=== PATIENT | female | born 1975 | race Caucasian/White ===

== ENCOUNTER 2022-06-12 16:01 | Day surgery (SDC) | payer OTHER, SELFPAY ==
[2022-06-12] VITALS (13 sets, daily range): BP systolic 97–137; BP diastolic 66–83; PULSE 121–144; RESP 20; TEMP 37.2; O2SAT 95–100; BMI 35.4
--- NOTE | 2022-06-12 18:14 | ED.GENADULT ---
HPI - General Adult General Chief complaint: Dental/Oral/Mouth Injury/Pain Stated complaint: Abscess w/ severe throat swelling,Breathing probs Time Seen by Provider: 06/12/22 16:37 History of Present Illness HPI narrative: 46-year-old woman presenting with significant other to the emergency department with concern of increasing pain in her throat. Recently seen at the dentist and has had about a day's worth of amoxicillin for presumed infected tooth. The far posterior left molar. Has noted some swelling now over the last couple of days and feeling a very sharp pain deep in her throat. Definitely hurts to swallow. Hard to open her mouth. She worries that she might have trouble breathing. She recalls a history of similar sharp pain in her throat at times in the middle of the night where she will wake up feeling like she can not breathe and does not adjustment as she demonstrate the area of her cricoid cartilage will hear or feel a little pop and then feels better. No fever no drainage. Related Data Home Medications Medication Instructions Recorded Confirmed acetaminophen 300 mg-codeine 30 mg 1 tab PO Q8H 06/12/22 06/12/22 tablet amoxicillin 500 mg capsule 500 mg PO TID 06/12/22 06/12/22 Allergies Allergy/AdvReac Type Severity Reaction Status Date / Time No Known Drug Allergies Allergy Verified 06/12/22 16:17 Review of Systems Status of ROS: Reports: 6 or more systems reviewed and unremarkable except as noted in History and below [facility] Social History Smoking Status: Never smoker Second hand tobacco smoke exposure: Yes How often do you have a drink containing alcohol: monthly or less How many standard drinks containing alcohol do you have on a typical day: 1 or 2 How often do you have six or more drinks on one occasion: Never AUDIT-C Alcohol total score: 1 Non-prescribed substance use: denies use Exam Narrative: Exam Narrative: Pleasant. Clearly uncomfortable. Voice is laryngitic. Has pain with movement of her head/neck. I do not hear any stridor. Oropharynx demonstrates little trismus. I am able to visualize though the posterior most left molar number 17 or 18 which has a large central erosion. There are is heaped up gum tissue around it. No pointing. Not actually tender to palpation of the tooth itself or the nearby gums. More remarkable as the amount of swelling in the submental area extending past the angle of the jaw. Tense very tender in these areas. No fluctuance. Again no pointing. Lungs are clear pulse is tachycardic and in a regular rhythm. Cranial nerves 2-12 look to be intact. Wearing red-rimmed glasses. Const: Vital Signs, click to edit/add: Vital Signs - 24 hr 06/12/22 16:17 Temperature 98.9 F Pulse Rate [Pulse Oximeter] 140 H Respiratory Rate 20 Blood Pressure [Ri ght Upper Arm] 137/83 Pulse Oximetry 99 Oxygen Delivery Me thod Room Air Documenting provider has reviewed patient's vital signs: yes Course Vital Signs Vital signs: Initial Vital Signs Temperature 98.9 F 06/12/22 16:17 Temperature Source Temporal Artery Scan 06/12/22 16:17 Pulse Rate 140 H 06/12/22 16:17 Pulse Rhythm 06/12/22 16:17 Respiratory Rate 20 06/12/22 16:17 Blood Pressure 137/83 06/12/22 16:17 Blood Pressure Mean 101 06/12/22 16:17 Pulse Oximetry 99 06/12/22 16:17 Oxygen Delivery Method 06/12/22 16:17 Vital Signs Temperature 98.9 F 06/12/22 16:17 Pulse Rate 140 H 06/12/22 16:17 Respiratory Rate 20 06/12/22 16:17 Blood Pressure 137/83 06/12/22 16:17 Pulse Oximetry 99 06/12/22 16:17 Oxygen Delivery Method 06/12/22 16:17 Temperature 98.9 F 06/12/22 16:17 Pulse Rate 125 H 06/12/22 22:17 Respiratory Rate 20 06/12/22 16:17 Blood Pressure 125/66 06/12/22 22:17 Pulse Oximetry 97 06/12/22 22:17 Oxygen Delivery Method 06/12/22 20:24 Medical Decision Making MDM Narrative Medical decision making narrative: Certainly concern of an abscess here. Place IV and CT soft tissue neck. IV contrasted CT of soft tissue neck IMPRESSION: Left-sided plunging ranula, resulting from obstruction of the left sublingual duct, with fluid projecting inferiorly from a lobular collection the floor of the mouth into the medial left submandibular region. Mild submandibular and sublingual reactive lymphadenopathy. Narrowing of the left hypopharyngeal airway structures, with no sign of impending airway compromise. CBC and CRP are quite elevated. Initiated on IV fluids and antibiotics. Pain management with fentanyl Audra had begun to have feelings of further tightening of her throat. Spoke with our Ear Nose and Throat doctor who upon review of imaging is quite concerned about impending airway collapse. Arrived to do controlled intubation in OR and drainage of ranula. I [place] speak with [facility] [place]. Unfortunately not able to take this type of patient at this time given volumes and bed availability. Further inquiry then through [facility] where they were able to accept. Spoke with staff there for transfer of care. Per their concerns added vancomycin Lab Data Lab results reviewed: Yes I reviewed the patient's lab results Labs: Lab Results 06/12/22 06/12/22 06/12/22 Range/Units 18:51 18:51 20:18 WBC 26.28 H* (4.50-11.00) K/uL RBC 4.63 (4.00-5.20) m/uL Hgb 13.1 (12.0-16.0) gm/dL Hct 39.2 (33.0-51.0) % MCV 85 (80-100) fL MCH 28 (26-34) pg MCHC 33 (32-36) gm/dL RDW Coeff of Manohar 13.2 (11.5-15.5) % Plt Count 387 (140-440) K/uL Neut % (Auto) 89.4 H (42.0-72.0) % Lymph % (Auto) 3.2 L (20-44) % [place] % (Auto) 6.1 (0.0-11.0) % Eos % (Auto) 0.0 (0.0-7.0) % Baso % (Auto) 0.1 (0.0-3.0) % Neut # (Auto) 23.50 H (1.7-7.0) K/uL Lymph # (Auto) 0.80 L (0.90-2.90) K/uL [place] # (Auto) 1.60 H (0.00-0.90) K/UL Eos # (Auto) 0.00 (0.00-0.50) K/uL Baso # (Auto) 0.00 (0.00-0.30) K/uL Abs Immat Gran (auto) 0.30 (0.00-0.30) K/uL Imm/Tot Granulo (auto) 1.2 % Diff Slide Review Acceptable Review (Acceptable) Sodium 138 (135-149) mmol/L Potassium 3.4 L (3.6-5.1) mmol/L Chloride 102 (96-114) mmol/L Carbon Dioxide 25 (20-32) mmol/L BUN 12 (5-24) mg/dL Creatinine 0.7 (0.5-1.5) mg/dL Estimated Creat Clear 83.95 Estimated GFR 109 ml/min Glucose 121 H (60-115) mg/dL Calcium 9.1 (8.4-10.6) mg/dL C-Reactive Protein 22.6 H (0.5-1.0) mg/dL SARS-CoV-2 (PCR) Negative SARS-CoV-2 (Negative) Critical Care Time Critical Care Time Total Critical Care Time in Minutes: 70 Discharge Plan Discharge Clinical Impression: Airway compromise, Ranula of floor of mouth Patient Disposition: Xfer Other Discharge Location: [facility] Condition: Stable
--- NOTE | 2022-06-12 18:30 | CRLHL7_ITS ---
For Patients: As a result of the Century Cures Act, medical imaging exams and procedure reports are released immediately into your electronic medical record. You may view this report before your referring provider. If you have questions, please contact your health care provider. INDICATION: Submental throat swelling and pain. Known tooth infection and abscess on the left. Pain in the throat on the left. COMPARISON: None available. TECHNIQUE: CT examination of the neck is performed using spiral technique during the uneventful intravenous administration of 91 cc of Isovue 370. 3 mm thick axial sections were made along with coronal and sagittal sections. Please note that all CT scans at this facility use dose modulation, iterative reconstruction, and/or weight-based dosing when appropriate to reduce radiation dose to as low as reasonably achievable. FINDINGS: There is a multi lobulated, linear fluid collection located within the left floor of the mouth, interposed between the mylohyoid muscle laterally and the geniohyoid/genioglossus muscle complex medially. The fluid projects inferiorly into the left submandibular space, located medial to the moderately enlarged, inflamed left submandibular gland. The findings are that of a plunging ranula, resulting from obstruction of the left sublingual gland. There is mild submandibular and sublingual adenopathy on the left which is probably reactive lymphadenopathy. There is also mild prominence of left superior jugular chain lymph nodes, probably also reactive, without lymphadenopathy. The inflammation and fluid from the left sublingual space results in effacement of the left vallecula and piriform sinus. There is no sign of impending airway compromise. The rest of the airway structures are normal in appearance. There is no sign of cervical mass or adenopathy on today`s study. The right submandibular gland and the parotid glands are normal in appearance. There are periapical abscesses involving the roots of the left 2nd and 3rd mandibular molars, teeth 17 and 18, but these abscesses do not appear to connect to the fluid collection described above. No additional periapical abscesses are evident. There is absence of multiple teeth and destruction of multiple crowns of the teeth from dental carries. The visualized posterior fossa, mastoids, skull base, and orbits are normal in appearance. The paranasal sinuses are clear. The great vessels are unremarkable. There are several small hypodense regions in the upper pole of the right lobe of the thyroid. These could be cysts or nodules and can be followed up with ultrasound on a nonemergent basis. The left lobe of the thyroid is normal in appearance. The visualized upper chest is clear. The visualized upper mediastinum is normal in appearance. The osseous structures are unremarkable. IMPRESSION: Left-sided plunging ranula, resulting from obstruction of the left sublingual duct, with fluid projecting inferiorly from a lobular collection the floor of the mouth into the medial left submandibular region. Mild submandibular and sublingual reactive lymphadenopathy. Narrowing of the left hypopharyngeal airway structures, with no sign of impending airway compromise. Please note that all CT scans at this facility use dose modulation, iterative reconstruction, and/or weight-based dosing when appropriate to reduce radiation dose to as low as reasonably achievable. Dictated by César Wong MD @ 06/12/2022 8:19:41 PM (Electronically Signed)
[2022-06-12] MEDS: 0.9 % SODIUM CHLORIDE 1000 ml 1,000 ML IV (19:00)
[2022-06-12 19:02] LABS: Basophils Percent Auto 0.1 % (0.0-3.0); Hematocrit 39.2 % (33.0-51.0); Hemoglobin* 13.1 gm/dL (12.0-16.0); Immature Granulocytes Pct Auto 1.2 %; Lymphocytes Percent Auto 3.2 % (20-44); Mean Corpuscular HGB Conc 33 gm/dL (32-36); Mean Corpuscular Hemoglobin 28 pg (26-34); Mean Corpuscular Volume 85 fL (80-100); Monocytes Percent Auto 6.1 % (0.0-11.0); Neutrophils Percent Auto 89.4 % (42.0-72.0); Platelet Count* 387 K/uL (140-440); RDW Coefficient of Variation % 13.2 % (11.5-15.5); Red Blood Count 4.63 m/uL (4.00-5.20)
--- OUTSIDE RECORDS SUMMARY | 2022-06-12 19:10 | XMS_ITS | Clinical Summary ---
:1975 Author Organization [facility] Address [address] [place] [address] Care Team Providers Name Role Phone PatrickVicki ellis YUE FLIGHT COMMUNICATIONS OPERATOR Primary Care Provider [phone] Allergies Active Allergy Reactions Severity Noted Date Comments No Known Drug Allergies 10/18/2002 Medications Medication Sig Dispensed Refills Start Date End Date Status Naproxen Sodium 0 Acti ve (ALEVE PO) penicillin V Take 1 tablet (500 40 tablet 0 05/15/2017 Active potassium (VEETID) mg) by mouth 4 500 MG tablet times daily ibuprofen Take 1 tablet (600 30 tablet 0 05/15/2017 Active (ADVIL/MOTRIN) 600 MG mg) by mouth every tablet 8 hours as needed for moderate pain oxyCODONE IR Take 1 tablet (5 15 tablet 0 05/15/2017 Active (ROXICODONE) 5 MG mg) by mouth every tablet 6 hours as needed for moderate to severe pain naproxen (NAPROSYN) Take 1 tablet (500 20 tablet 0 05/24/2019 Active 500 MG tablet mg) by mouth 2 times daily as needed for moderate pain Active Problems Problem Noted Date CARDIOVASCULAR SCREENING; LDL GOAL LESS THAN 160 08/09 Headache 03/13/2005 Overview: Problem list name updated by automated p rocess. Provider to review Resolved Problems Problem Noted Date Resolved Date Encounter for supervision of other normal 03/11/20 06 09/07/2007 Overview: Diagnosis updated by automated process. Provider to review and confirm. Immunizations Name Administration Dates Next Due Influenza (IIV3) PF 04/21/2006 TD (ADULT, 7+) 11/01/2003 10/31/2013 Family History Medical History Relation Comments Heart Disease Father Heart murmur Cardiovascular Mother COPD Respiratory Mother Emphysema Mom adopte d not sure of FX HX Cardiovascular Paternal Grandfather AR at age in 40's Cancer Sister 3 Ovarian? Relation Status Comments Brother 1 Alive Brother 2 Alive Daughter Alive Mary Father Alive Maternal Grandfather Maternal Grandmother Mother Alive emphysema Paternal Grandfather Paternal Grandmother Alive Sister 1 Alive ovarian cancer Sister 2 Alive Sister 3 Social History Tobacco Use Types Packs/Day Years Used Date Smoking Tobacco: Never Alcohol Use Standard Drinks/Week Comments No 0 (1 standard drink = 0.6 oz pure alcoho l) Sex Assigned at Date Recorded Not on file Last Filed Vital Signs Vital Sign Reading Time Taken Comments Blood Pressure 115/70 05/24/2019 8:23 PM BUSINESS OBJECTS ANALYST Pulse 72 05/24/2019 8:23 PM BUSINESS OBJECTS ANALYST Temperature 36.9 ??C (98.4 ??F) 05/24/2019 6:36 PM BUSINESS OBJECTS ANALYST Respiratory Rate 16 05/24/2019 8:23 PM BUSINESS OBJECTS ANALYST Oxygen Saturation 98% 05/24/2019 8:23 PM BUSINESS OBJECTS ANALYST Inhaled Oxygen Concentration - - Weight 90.7 kg (200 lb) 05/24/2019 6:36 PM BUSINESS OBJECTS ANALYST Height 160 cm (5' 3) 09/07/2007 1:30 PM CDT Body Mass Index - - Plan of Treatment Health Maintenance Due Date Last Done Comments ADVANCE CARE PLANNING 1975 ANNUAL REVIEW OF HM ORDERS 1976 CT COLONOGRAPHY 1976 FIT-DNA (Cologuard) 1975 FIT 1975 FLEX SIG 1975 HEPATITIS B IMMUNIZATION (1 1975 of 3 - 3-dose series) MAMMO SCREENING 1975 COVID-19 Vaccine (#1) 03/28/1977 COLONOSCOPY 1986 COLORECTAL CANCER SCREENING 1986 HEPATITIS C SCREENING 1994 PAP 03/24/2007 03/24/2006, 03/13/2005, 11/01/2003, Additional history exists DTAP/TDAP/TD IMMUNIZATION 10/31/2013 11/01/2003, 11/01/2003 (2 - Td or Tdap) PHQ-2 (once per calendar 06/30/2021 year) LIPID 2021 INFLUENZA VACCINE (#1) 2022 04/21/2006 YEARLY PREVENTIVE VISIT 02/26/2023 02/26/2022, 09/11/2020, 12/18/2006, Additional history exists HIV SCREENING Completed 03/11/2006 IPV IMMUNIZATION Aged Out No longer eligi ble based on patient 's age to complete this topic MENINGITIS IMMUNIZATION Aged Out No longe r eligible based on patient 's age to complete this topic Pneumococcal Vaccine: Aged Out No longer eligible Pediatrics (0 to 5 Years) based on patient's age and At-Risk Patients (6 to to co mplete this topic 64 Years) Insurance Payer Benefit Plan / Subscriber ID Effective Phone Address T ype Group Dates [facility] [id number] 2018-Joana [phone] [address] [facility] [address] [place] [address] Care Teams Supervisor Forming And Tempering Relationship Specialty Start Date End Date Vicki Mcgregor APRN FLIGHT COMMUNICATIONS OPERATOR PCP - General 07/21/03 [id number] [place] [address]
--- OUTSIDE RECORDS SUMMARY | 2022-06-12 19:10 | XMS_ITS | Encounter Summary ---
:1975 Author Organization [facility] Address [address] [place] [address] Care Team Providers Name Role Phone Vicki Mcgregor APRN, CNP Primary Care Provider [phone] Encounter Details Date Type Department Care Team Description 05/24/2019 Travel Social History Tobacco Use Types Packs/Day Years Used Date Smoking Tobacco: Never Alcohol Use Standard Drinks/Week Comments No 0 (1 standard drink = 0.6 oz pure alcoho l) Sex Assigned at Date Recorded Not on file documented as of this encounter Plan of Treatment Not on filedocumented as of this encounter Visit Diagnoses Not on filedocumented in this encounter Care Teams Director Of Photography Relationship Specialty Start Date End Date Vicki Mcgregor APRN CNP PCP - General 07/21/03 [id number] [place] [address] documented as of this encounter
--- OUTSIDE RECORDS SUMMARY | 2022-06-12 19:10 | XMS_ITS | Encounter Summary ---
:1975 Author Organization [place] Address [address] [place] [address] Care Team Providers Name Role Phone Vicki Mcgregor YUE METAL CLEANER Primary Care Provider [phone] Reason for Visit Reason Comments Chest Pain Encounter Details Date Type Department Care Team Description 05/24/2019 Emergency [facility] Chandu Akers C hest pain, [facility] Emergency Dep t unspecified type [address] [facility] [id number] [facility] [phone] [place], [place] [address] (Wo rk) Social History Tobacco Use Types Packs/Day Years Used Date Smoking Tobacco: Never Alcohol Use Standard Drinks/Week Comments No 0 (1 standard drink = 0.6 oz pure alcoho l) Sex Assigned at Date Recorded Not on file documented as of this encounter Last Filed Vital Signs Vital Sign Reading Time Taken Comments Blood Pressure 115/70 05/24/2019 8:23 PM MACHINE SHOP APPRENTICE Pulse 72 05/24/2019 8:23 PM MACHINE SHOP APPRENTICE Temperature 36.9 ??C (98.4 ??F) 05/24/2019 6:36 PM MACHINE SHOP APPRENTICE Respiratory Rate 16 05/24/2019 8:23 PM MACHINE SHOP APPRENTICE Oxygen Saturation 98% 05/24/2019 8:23 PM MACHINE SHOP APPRENTICE Inhaled Oxygen Concentration - - Weight 90.7 kg (200 lb) 05/24/2019 6:36 PM MACHINE SHOP APPRENTICE Height - - Body Mass Index - - documented in this encounter Discharge Instructions Discharge InstructionsChandu Akers MD - 05/24/2019 8:06 PM MACHINE SHOP APPRENTICE Discharge Instructions Chest Pain You have been seen today for chest pain or discomfort. At this time, your provider has found no signs that your chest pain is due to a serious or life- threatening condition, (or you have declined more testing and/or admission to the hospital). However, sometimes there is a serious problem that does not show up right away. Your evaluation today may not be complete and you may need further testing and evaluation. Generally, every Emergency Department visit should have a follow-up clinic visit with either a primary or a specialty clinic/provider. Please follow-up as instructed by your emergency provider today. Return to the Emergency Department if: Your chest pain changes, gets worse, starts to happen more often, or comes with less activity. You are newly short of breath. You get very weak or tired. You pass out or faint. You have any new symptoms, like fever, cough, numb legs, or you cough up blood. You have anything else that worries you. Until you follow-up with your regular provider, please do the following: Take one aspirin daily unless you have an allergy or are told not to by your provider. If a stress test appointment has been made, go to the appointment. If you have questions, contact your regular provider. Follow-up with your regular provider/clinic as directed; this is very important. If you were given a prescription for medicine here today, be sure to read all of the information (including the package insert) that comes with your prescription. This will include important information about the medicine, its side effects, and any warnings that you need to know about. The pharmacist who fills the prescription can provide more information and answer questions you may have about the medicine. If you have questions or concerns that the pharmacist cannot address, please call or return to the Emergency Department. Remember that you can always come back to the Emergency Department if you are not able to see your regular provider in the amount of time listed above, if you get any new symptoms, or if there is anything that worries you. INE SHOP APPRENTICE AttachmentsThe following attachments cannot be sent through Care Everywhere. Costochondritis (Angolan)documented in this encounter Medications at Time of Discharge Medication Sig Dispensed Refills Start Date End Date ibuprofen (ADVIL/MOTRIN) Take 1 tablet (600 mg) 30 tablet 0 05/15/2017 600 MG tablet by mouth every 8 hours as needed for moderate pain naproxen (NAPROSYN) 500 Take 1 tablet (500 mg) 20 tablet 0 05/24/2019 MG tablet by mouth 2 times daily as needed for moderate pain Naproxen Sodium (ALEVE 0 PO) oxyCODONE IR (ROXICODONE) Take 1 tablet (5 mg) 15 tablet 0 05/15/2017 5 MG tablet by mouth every 6 hours as needed for moderate to severe pain penicillin V potassium Take 1 tablet (500 mg) 40 tablet 0 1 07/15/2016 (VEETID) 500 MG tablet by mouth 4 times daily documented as of this encounter ED Notes Corinna Allen - 05/24/2019 6:38 PM CST Patient presents with mid-sternal chest pain since 0815 this morning when she was driving into work.Patient states pain has been constant, hurts when she inhales. Patient states tender to the touch, no injury noted. ABCDs intact, alert and oriented x 4. INE SHOP APPRENTICE Chandu Akers MD - 05/24/2019 6:32 PM CST History Chief Complaint: Chest Pain HPI Audra Perez is a 43 year old female who presents to the emergency department today with chest pain. The patient reports sharp chest pain that started at 0815 this morning that came on suddenly andhas not resolved since. The patient states that the pain is in the center of her chest and radiates to the left side, with associated shortness of breath, pain with breathing/touch, and cough. She states her pain is tender to the touch and worse when she brings her arms together.The patient denies recent cough or cold symptoms before this. She denies coughing up blood. She denies injury or exertion recently. She was at work all day today and has not taken any medications. She also states last week she had pain with breathing and back pain. Cardiac/PE/DVT Risk Factors: History of hypertension - negative History of hyperlipidemia - negative History of diabetes - negative History of smoking - negative Personal history of PE/DVT - negative Family history of PE/DVT - negative Family history of heart complications - positive, father had heart attack in his 50's, grandpa had it in his 40's Recent travel - negative Recent surgery - negative Other immobilizations - negative Cancer - negative Estrogen - negative Allergies: No Known Drug Allergies Medications: Roxicodone Veetid Past Medical History: The patient denies any relevant past medical history. Past Surgical History: [place] teeth removal Mouth surgery Family History: Emphysema Cancer Myocardial infarction COPD Heart murmur Social History: The patient was accompanied to the ED by son. Smoking Status: Never Alcohol Use: No Marital Status: Single Review of Systems Respiratory: Positive for cough and shortness of breath. Cardiovascular: Positive for chest pain. Musculoskeletal: Positive for back pain. All other systems reviewed and are negative. Physical Exam Patient Vitals for the past 24 hrs: BP Temp Temp src Pulse Heart Rate Resp SpO2 Weight 05/24/192022 115/70 -- -- 72 72 16 98 % -- 05/24/191835 134/76 98.4 ??F (36.9 ??C) Oral -- 91 14 100 % 90.7 kg (200 lb) Physical Exam General: Pleasant, age appropriate. HEENT: Oropharynx is moist. Eyes: Conjunctiva normal Neck: Supple, no meningismus. CV: Regular rate and rhythm. No murmurs, rubs or gallops. No unilateral leg swelling. 2+ radial pulses bilateral. No lower extremity edema. PULM: Clear to auscultation bilateral. No respiratory distress. Good air exchange. No rales or wheezing. Chest wall is tender to touch. ABD: Soft, non-tender, non-distended. No pulsatile masses. No rebound, guarding or rigidity. MSK: No gross deformity to all four extremities. LYMPH: No cervical lymphadenopathy. NEURO: Alert. Good muscle tone, no atrophy. Skin: Warm, dry and intact. Psych: Mood is good and affect is appropriate. Emergency Department Course ECG: Indication: chest pain Completed at 1849. Read at 1910. Normal sinus rhythm Normal ECG Rate 81 bpm. ME interval 176. QRS duration 88. QT/QTc 384/446. P-R-T axes 47 -5 39. Imaging: Radiology findings were communicated with the patient who voiced understanding of the findings. Chest XR, PA & LAT Final Result IMPRESSION: There are no acute infiltrates. The cardiac silhouette is not enlarged. Pulmonary vasculature is unremarkable. MARTIN RASCON MD Report per radiology Laboratory: Laboratory findings were communicated with the patient who voiced understanding of the findings. Troponin (Collected 1928): <0.015 HCG Qualitative: negative CBC: AWNL (WBC 8.3, HGB 13.3, PLT 350) BMP: 3.3 K o/w WNL (Creatinine 0.77) Interventions: 193: Toradol 15 mg IV Emergency Department Course: Nursing notes and vitals reviewed. 1899: I performed an exam of the patient as documented above. IV was inserted and blood was drawn for laboratory testing, results above. The patient was sent for a Chest XR while in the emergency department, results above. 2004: Findings and plan explained to the Patient. Patient discharged home with instructions regarding supportive care, medications, and reasons to return. The importance of close follow-up was reviewed. The patient was prescribed Naprosyn. I personally reviewed the laboratory and imaging results with the Patient and answered all related questions prior to discharge. Impression & Plan Medical Decision Makin-year-old female presented to the ED with atypical chest pain. She was evaluated for ACS in which EKG reveals no ischemic changes. Troponin is within normal limits despite greater than 8 hours of constant pain thus ruling out UT. She has no features concerning for pulmonary embolus, aortic dissection or aortic aneurysm. She has reproducible tenderness on examination indicating likely costochondritis. Patient will be started on anti-inflammatories and will follow up with primary care physician to ensure improvement. Diagnosis: ICD-10-CM 1. Chest pain, unspecified type R07.9 Disposition: discharged to home Discharge Medications: Discharge Medication List as of 05/24/2019 8:16 PM START taking these medications Details naproxen (NAPROSYN) 500 MG tablet Take 1 tablet (500 mg) by mouth 2 times daily as needed for moderate pain, Disp-20 tablet, R-0, Local Print Scribe Disclosure: IMiesha MD, am serving as a scribe at 7:10 PM on 05/24/2019 to document services personally performed by Chandu Akers MD based on my observations and the provider's statements to me. 05/24/2019 [facility] EMERGENCY DEPARTMENT Chandu Akers MD 05/24/19 1993 INE SHOP APPRENTICE documented in this encounter Plan of Treatment Not on filedocumented as of this encounter Procedures Procedure Name Priority Date/Time Associated Comments Diagnosis XR CHEST 2 VIEWS STAT 05/24/2019 8:03 PM Resul ts for this MACHINE SHOP APPRENTICE procedure are i n the results section. TROPONIN I STAT 05/24/2019 7:29 PM Results f or this MACHINE SHOP APPRENTICE procedure are i n the results section. HCG QUALITATIVE STAT 05/24/2019 7:29 PM Result s for this MACHINE SHOP APPRENTICE procedure are i n the results section. BASIC METABOLIC PANEL STAT 05/24/2019 7:29 PM Results for this MACHINE SHOP APPRENTICE procedure are i n the results section. CBC WITH PLATELETS STAT 05/24/2019 7:29 PM Res ults for this MACHINE SHOP APPRENTICE procedure are i n the results section. EKG 12-LEAD, TRACING STAT 05/24/2019 6:49 PM R esults for this ONLY MACHINE SHOP APPRENTICE procedure are i n the results section. documented in this encounter Results Chest XR, PA & LAT (05/24/2019 8:03 PM MACHINE SHOP APPRENTICE) Anatomical Region Laterality Modality Chest Digital Radiography Specimen (Source) Anatomical Location Collection Method / Collectio n Time Received Time / Laterality Volume Impressions 05/24/2019 8:19 PM MACHINE SHOP APPRENTICE IMPRESSION: There are no acute infiltrates. The cardiac silhouette is not enlarged. Pulmonary vasculature is u nremarkable. MARTIN RASCON MD Narrative 05/24/2019 8:19 PM MACHINE SHOP APPRENTICE CHEST TWO VIEWS 05/24/2019 8:03 PM HISTORY: Chest pain. COMPARISON: None. Procedure Note Martin Rascon MD - 05/24/2019Fo rmatting of this note might be different from the original. CHEST TWO VIEWS 05/24/2019 8:03 PM HISTORY: Chest pain. COMPARISON: None. IMPRESSION: There are no acute infiltrat es. The cardiac silhouette is not enlarged. Pulmonary vasculature is u nremarkable. MARTIN RASCON MD Chandu Akers MD IMG DIAGNOSTIC IMAGING ORDER [place]ORA HCG qualitative (05/24/2019 7:29 PM MACHINE SHOP APPRENTICE) [facility] Method Time Signature HCG Qualitative Negative NEG^Negati 05/24/2019 [facility] Serum ve 7:57 PM [facility] Comment: This test is for screening purposes. ??R esults should be interpreted along with the clinical picture. ??Confirmation te sting is available if warranted by ordering [id number], HCG Quantitative Pregna ncy. Specimen Anatomical Collection Method Collection Time Receive d Time (Source) Location / / Volume Laterality Blood specimen 05/24/2019 7:29 PM 019 7:33 (specimen) MACHINE SHOP APPRENTICE PM MACHINE SHOP APPRENTICE Chandu Akers MD LAB - BLOOD ORDERABLES Performing Organization Address [facility]/ZIP [facility] e Number [facility] [address] [place], [place] [address] [facility] [address] [place], [place] [address], [facility] [phone] Troponin I (05/24/2019 7:29 PM MACHINE SHOP APPRENTICE) athologist Signature Troponin I ES <0.015 0.000 - 05/24/2019 [place] 0.045 ug/L 7:58 PM [facility] Comment: The 99th percentile for upper reference range is 0.045 ug/L. ??Troponin values in the range of 0.045 - 0.120 ug/L may b e associated with risks of adverse clinical events. Specimen Anatomical Collection Method Collection Time Receive d Time (Source) Location / / Volume Laterality Blood specimen 05/24/2019 7:29 PM 019 7:33 (specimen) MACHINE SHOP APPRENTICE PM MACHINE SHOP APPRENTICE Chandu Akers MD LAB - BLOOD ORDERABLES Performing Organization Address [facility] e [place] [facility] [address] [place], [place] [address] [facility] [address] [place] [address], [facility] [phone] (ABNORMAL) Basic metabolic panel (BMP) (05/24/2019 7:29 PM MACHINE SHOP APPRENTICE) athologist Signature Sodium 139 133 - 144 05/24/2019 [place] mmol/L 7:47 PM [facility] Potassium 3.3 (L) 3.4 - 5.3 05/24/2019 [place] mmol/L 7:47 PM [facility] Chloride 107 94 - 109 05/24/2019 [place] mmol/L 7:47 PM [facility] Carbon Dioxide 26 20 - 32 05/24/2019 [place] mmol/L 7:[address] [facility] Anion Gap 6 3 - 14 05/24/2019 [place] mmol/L 7:[address] [facility] Glucose 96 70 - 99 05/24/2019 [place] mg/dL 7:[address] [facility] Urea Nitrogen 11 7 - 30 05/24/2019 [place] mg/dL 7:[address] [facility] Creatinine 0.77 0.52 - 05/24/2019 [place] 1.04 mg/dL 7:[address] [facility] GFR Estimate >90 >60 05/24/2019 [place] mL/min/{1. 7:53 PM [facility] 73_m2} HOSPITAL Comment: Non GFR Calc Starting 06/16/2018, serum creatinine ba sed estimated GFR (eGFR) will be calculated using the Chronic Kidney Dise [facility] Epidemiology Collaboration (CKD-EPI) equation. GFR Estimate If >90 >60 mL/min/{1.73_m2} 05/24/2019 7: 53 PM [facility] Comment: GFR Calc Starting 06/16/2018, serum creatinine ba sed estimated GFR (eGFR) will be calculated using the Chronic Kidney Dise [facility] Epidemiology Collaboration (CKD-EPI) equation. Calcium 8.7 8.5 - 10.1 mg/dL 05/24/2019 7:53 PM [facility] Specimen Anatomical Collection Method Collection Time Receive d Time (Source) Location / / Volume Laterality Blood specimen 05/24/2019 7:29 PM 019 7:33 (specimen) MACHINE SHOP APPRENTICE PM MACHINE SHOP APPRENTICE Chandu Akers MD LAB - BLOOD ORDERABLES Performing Organization Address City/State/ZIP Code Phon e Number [place] [address] [address] [facility] [address] [place], [place] [address], [facility] [phone] [place] [address] [address] [address], [facility] CBC (platelets, no diff) (05/24/2019 7:29 PM MACHINE SHOP APPRENTICE) athologist Signature WBC 8.3 4.0 - 11.0 05/24/2019 [facility] 10e9/L 7:36 PM [facility] RBC Count 4.60 3.8 - 5.2 05/24/2019 [facility] 10e12/L 7:36 PM [facility] Hemoglobin 13.3 11.7 - 05/24/2019 [facility] 15.7 g/dL 7:36 PM [facility] Hematocrit 39.3 35.0 - 05/24/2019 [facility] 47.0 % 7:36 PM [facility] MCV 85 78 - 100 05/24/2019 [facility] fl 7:36 PM [facility] MCH 28.9 26.5 - 05/24/2019 [facility] 33.0 pg 7:36 PM [facility] MCHC 33.8 31.5 - 05/24/2019 [facility] 36.5 g/dL 7:36 PM [facility] RDW 13.5 10.0 - 05/24/2019 [facility] 15.0 % 7:36 PM [facility] Platelet Count 350 150 - 450 05/24/2019 [facility] 10e9/L 7:36 PM [facility] Specimen Anatomical Collection Method Collection Time Receive d Time (Source) Location / / Volume Laterality Blood specimen 05/24/2019 7:29 PM 019 7:33 (specimen) MACHINE SHOP APPRENTICE PM MACHINE SHOP APPRENTICE Chandu Akers MD LAB - BLOOD ORDERABLES Performing Organization Address City/State/ZIP Code Phon e Number [place] [address] [phone] EKG 12 lead (05/24/2019 6:49 PM MACHINE SHOP APPRENTICE) [facility] gist Method Time Signature Interpretation ECG Click View RADIOLOGY Image link RESULTS to view waveform and result Specimen (Source) Anatomical Collection Method Collection Time Re ceived Time Location / / Volume Laterality 05/24/2019 6:49 PM MACHINE SHOP APPRENTICE Chandu Akers MD ECG ORDERABLES Performing Organization Address City/[facility]/ZIP [facility] [place] [place] Phon e Number RADIOLOGY RESULTS documented in this encounter Visit Diagnoses Diagnosis Chest pain, unspecified type documented in this encounter Administered Medications Inactive Administered Medications - up to 3 most recent administrations Medication Order MAR Action Action Date Dose Rate Site ketorolac (TORADOL) injection 15 mg Given 05/24/2019 7:34 PM MACHINE SHOP APPRENTICE 15 mg 15 mg, Intravenous, ONCE, On Fri05/24/19 at 1912, For 1 dose, Can cause pain on injection. If ordered intravenously (IV) : administer through a running maintenance fluid over 1 minute followed by a flush. If patient complains of pain on injection, may dilute 15-30 mg in 5 mL and push over 1 to 2 minutes. documented in this encounter Active and Recently Administered Medications Times are shown in MACHINE SHOP APPRENTICE. Scheduled Medication Order 05/22/2019 05/23/2019 05/24/2019 ketorolac (TORADOL) injection 15 mg (COMPLETED) 193 (Given - Provider: Jyothi Arzate RN) 15 mg, Intravenous, ONCE, Fri05/24/19 a t 1912, For 1 dose, Can cause pain on injection. If ordered intravenously (IV) : administer through a running maintenance fluid over 1 minute followed by a flush. If patient complains of pain on injecti on, may dilute 15-30 mg in 5 mL and push over 1 to 2 minutes. documented in this encounter Care Teams Quotation Clerk Relationship Specialty Start Date End Date Vicki Mcgregor APRN METAL CLEANER PCP - General 07/21/03 [address] [place] [address] documented as of this encounter
--- OUTSIDE RECORDS SUMMARY | 2022-06-12 19:11 | XMS_ITS | Encounter Summary ---
:1975 Author Organization [place] Address [address] [place] [address] Care Team Providers Name Role Phone Vicki Mcgregor YUE HISTOLOGICAL ILLUSTRATOR Primary Care Provider [phone] Reason for Visit Reason Comments Care Mother states baby is active . She is having contractions without regularity. Encounter Details Date Type Department Care Team Description 10/16/2006 Office [facility] Romi Abreu OTHER Visit Paco Mohamud MD NORMAL PREG [address] [facility] NI (Primary Dx) [address] [place] [address] [facility] [address] [id number] (Wo rk) Social History Tobacco Use Types Packs/Day Years Used Date Smoking Tobacco: Never Alcohol Use Standard Drinks/Week Comments No 0 (1 standard drink = 0.6 oz pure alcoho l) Sex Assigned at Date Recorded Not on file documented as of this encounter Last Filed Vital Signs Vital Sign Reading Time Taken Comments Blood Pressure 128/86 10/16/2006 11:15 AM CDT Pulse 98 10/16/2006 11:15 AM CDT Temperature - - Respiratory Rate - - Oxygen Saturation - - Inhaled Oxygen Concentration - - Weight 93.9 kg (207 lb) 10/16/2006 11:15 AM CDT Height - - Body Mass Index 36.09 09/15/2006 4:00 PM CDT documented in this encounter Patient Instructions Patient InstructionsRomi Abreu MD - 10/16/2006 3:26 PM CDT Precautions for signs of labor, rupture of membranes, vaginal bleeding discussed, kick counts reviewed. documented in this encounter Progress Notes Romi Abreu MD - 03/08/2010 4:45 PM CDT denies vaginal bleeding, regular contractions, loss of fluid; + movement reported. Will schedule induction for 41 wks if no spontaneous labor prior. Olive Andres - 10/16/2006 11:18 AM CDT Gestational Age: 40w 2d Audra Perez presents for Chief Complaint Patient presents with ??? Care Mother states baby is active. She is having contractions without regularity. Initial BP 128/86 Pulse 98 Wt 207 lbs (93.9kg) LMP OB (10/14/06) BP completed using cuff size: large nurse assisted visit. Olive Andres [facility] documented in this encounter Nursing Notes 10/16/2006 11:15 AM CDT >> JUVENTINO BELTRAN 10/16/2006 1:20 pm Induction scheduled. See telephone encounter of 10/16/06. Amara Beltran RN documented in this encounter Plan of Treatment Not on filedocumented as of this encounter Procedures Procedure Name Priority Date/Time Associated Diagnosis Comme nts HCL OB SUGAR & Routine 10/16/2006 11:21 AM Supervis Other Resu lts for this ALBUMIN CDT Normal Preg procedure are i n the results section. documented in this encounter Results OB SUGAR & ALBUMIN (10/16/2006 11:21 AM CDT) P athologist Signature Protein Negative mg/dL [facility] Albumin Urine [facility] Glucose Urine Negative mg/dL [facility] Specimen Anatomical Collection Method Collection Time Receive d Time (Source) Location / / Volume Laterality 10/16/2006 11:21 10/16/2006 AM CDT 11:24 AM CDT Romi Abreu MD LABORATORY Performing Organization Address City/State/ZIP Code Phon e Number [facility] [address] [address] [facility] documented in this encounter Visit Diagnoses Diagnosis Supervision of other normal - Primary documented in this encounter Care Teams Customer Service Operator Relationship Specialty Start Date End Date Vicki Mcgregor APRN HISTOLOGICAL ILLUSTRATOR PCP - General 07/21/03 [address] [place] [address] documented as of this encounter
--- OUTSIDE RECORDS SUMMARY | 2022-06-12 19:11 | XMS_ITS | Encounter Summary ---
:1975 Author Organization [place] Address [address] [place] [address] Care Team Providers Name Role Phone Meche Vicki IN HOME SALES REPRESENTATIVE SONG PLUGGER Primary Care Provider [phone] Reason for Visit Reason Comments Edema Encounter Details Date Type Department Care Team Description 09/07/2007 Office Visit [facility] Vicki Mcgregor ENLARG EMENT LYMPH [place] IN HOME SALES REPRESENTATIVE SONG PLUGGER NODES (Primary Dx) [address] [facility] [address] [address] [address] [address] [phone] [place] [phone] (Wo rk) Social History Tobacco Use Types Packs/Day Years Used Date Smoking Tobacco: Never Alcohol Use Standard Drinks/Week Comments No 0 (1 standard drink = 0.6 oz pure alcoho l) Sex Assigned at Date Recorded Not on file documented as of this encounter Last Filed Vital Signs Vital Sign Reading Time Taken Comments Blood Pressure 120/80 09/07/2007 1:30 PM CDT Pulse 84 09/07/2007 1:30 PM CDT Temperature 36.2 ??C (97.1 ??F) 09/07/2007 1:30 PM CDT Respiratory Rate - - Oxygen Saturation - - Inhaled Oxygen Concentration - - Weight 90.7 kg (200 lb) 09/07/2007 1:30 PM CDT Height 160 cm (5' 3) 09/07/2007 1:30 PM CDT Body Mass Index 35.43 09/07/2007 1:30 PM CDT documented in this encounter Patient Instructions Patient InstructionsVicki Mcgregor - 09/07/2007 2:38 PM CDT Use 4 tabs-- three time per day. over the counter ibuprofen (advil or motrin--same thing) Please take with food. documented in this encounter Progress Notes Vicki Mcgregor - 09/07/2007 1:37 PM CDT S: Audra Perez is here for a New Issue: Swollen area laft side, upper neck/left side of head Has been going on for 4 days. Has had mild URI symptoms and then had onset of left posterior neck pain and swelling --thinks it is a swollen lymph node. Is very fatigued and sleeping a lot. Worse in the morning. No associated significant sore throat or cough. No significant nasal congestion. No overt fever. Any medications tried? Tylenol-has not helped Is overall unchanged. No known exposure to illness. Patient Active Problem List Diagnoses Code ??? HEADACHE 784.0 Past Surgical History Procedure Date ??? Surgical history of - wisdom teeth removal Allergies Allergen Reactions ??? No Known Drug Allergies History Substance Use Topics ??? Tobacco Use: Never ??? Alcohol Use: No Current outpatient prescriptions Medication Sig ??? TYLENOL 325 MG OR TABS ONE TO TWO TABLETS EVERY 4 TO 6 HOURS NEEDED FOR PAIN O: BP 120/80 Pulse 84 Temp (Src) 97.1 (Oral) Ht 5' 3 (1.60m) Wt 200 lbs (90.7kg) LMP 08/31/2007 Appears mildly fatigued but in no apparent distress TM-- no acute infection or effusion OP: without significant erythema or exudates. Neck: supple shotty anterior adenopathy. Left posterior tender node noted without surface changes. Is about 1.5 cm in diameter Lungs: Clear Cardiac. Regular. No murmur. The abdomen is soft without tenderness, guarding, mass, rebound or organomegaly. Bowel sounds are normal. [place] heterophile negative CBC within normal limits. A/P: Encounter Diagnoses Code Name Primary? Qualifier ??? 785.6 ENLARGEMENT LYMPH NODES Yes Plan: MONO HETEROPHILE, CBC WITH PLATELETS, DIFF Likely viral and will resolve. Pt is already about 50 percent better today. If worsening or failing to improve follow up in clinic. documented in this encounter Nursing Notes 09/07/2007 1:30 PM CDT >> CARMELLA WRIGHT 09/07/2007 1:40 pm Patient presents with: Edema Initial BP 120/80 Pulse 84 Temp (Src) 97.1 (Oral) Ht 5' 3 (1.60m) Wt 200 lbs (90.7kg) LMP08/31/2007 Body mass index is 35.44 kg/(m^2). BP Completed using cuff size: large-right Carmella Valladares LOAN INTERVIEWER documented in this encounter Plan of Treatment Not on filedocumented as of this encounter Procedures Procedure Name Priority Date/Time Associated Diagnosis Comme nts CL AFF CBC WITH Routine 09/07/2007 1:57 PM Enlargement Lymph R esults for this PLATELETS, DIFF CDT Nodes procedure ar e in the results section. HCL MONO TEST Routine 09/07/2007 1:57 PM Enlargement Lymph Res ults for this CDT Nodes procedure are i n the results section. documented in this encounter Results CBC WITH PLATELETS, DIFF (09/07/2007 1:57 PM CDT) [facility] gist Method Time Signature WBC 8.7 4.0 - [facility] 11.0 [facility] 10e9/L LAB RBC Count 4.50 3.8 - 5.2 [facility] 10[facility] Hemoglobin 12.2 11.7 - [facility] 15.7 g/dL [facility] Hematocrit 37.4 35.0 - [facility] 47.0 % [facility] MCV 83 78 - 100 [place] [address] [facility] MCH 27.1 26.5 - [facility] 33.0 pg [facility] MCHC 32.6 31.5 - [facility] 36.5 g/dL [facility] RDW 14.4 10.0 - [facility] 15.0 % [facility] Platelet Count 408 150 - 450 [place] 10e9/L [facility] Diff Method Automated [facility] Method [facility] % Lymphocytes 35 20 - 48 % [place] [facility] % Monocytes 5 0 - 12 % [place] [facility] % Granulocytes 60 40 - 75 % [place] [facility] Absolute 3.1 0.8 - 5.3 [place] Lymphocytes 10e9/L [facility] Absolute 0.4 0.0 - 1.3 [place] Monocytes 10e9/L [facility] Absolute 5.2 1.6 - 8.3 [place] Granulocytes 10e9/L [facility] Specimen Anatomical Collection Method Collection Time Receive d Time (Source) Location / / Volume Laterality 09/07/2007 1:57 PM 8 2:02 CDT PM CDT Vicki Mcgregor APRN, CNP LABORATORY Performing Organization Address City/[facility]/ZIP Code Phon e Number [facility] [address] [place] [phone] [facility] MONO HETEROPHILE (09/07/2007 1:57 PM CDT) [facility] gist Method Time Signature Mononucleosis Negative NEG [place] Screen [facility] Specimen Anatomical Collection Method Collection Time Receive d Time (Source) Location / / Volume Laterality 09/07/2007 1:57 PM 8 2:02 CDT PM CDT Vicki Mcgregor APRN, CNP LABORATORY Performing Organization Address City/[facility]/ZIP Code Phon e Number [address] [phone] [facility] documented in this encounter Visit Diagnoses Diagnosis Enlargement of lymph nodes - Primary documented in this encounter Care Teams Pulp Cooker Relationship Specialty Start Date End Date Vicki Mcgregor APRN CNP PCP - General 07/21/03 [address] [place] [address] documented as of this encounter
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
--- OUTSIDE RECORDS SUMMARY | 2022-06-12 19:11 | XMS_ITS | Encounter Summary ---
:1975 Author Organization [place] Address [address] [place] [address] Care Team Providers Name Role Phone Vicki Mcgregor YUE MANAGER BILINGUAL Primary Care Provider [phone] Reason for Visit Reason Onset Date Comments Other 10/06/2006 Fluid leaking Encounter Details Date Type Department Care Team Description 10/06/2006 Telephone [facility] Romi Abreu (Fluid leaking) Paco Mohamud MD [address] [facility] [employer] [facility] [place] [address] [facility]8 [place] [phone] [address] (Wo rk) Social History Tobacco Use Types Packs/Day Years Used Date Smoking Tobacco: Never Alcohol Use Standard Drinks/Week Comments No 0 (1 standard drink = 0.6 oz pure alcoho l) Sex Assigned at Date Recorded Not on file documented as of this encounter Miscellaneous Notes Telephone Encounter - Linda Bradley - 10/06/2006 12:17 PM CDT Pt calling back to report that she is leaking clear fluid now. Advised pt to go to [facility] L&D. Dr. Abreu informed and [facility] called. Judson Bradley RN Telephone Encounter - Brynn Siegel - 10/06/2006 8:58 AM CDT Pt calling to report she has been having a thick yellowish White discharge form 3 days now. Not pinktinged and does not have any contractions yet.Denies vaginal itching. She called and talked to the on-call OB on Friday and he thought it might be her plug. Her next appt is on . She wants toknow if this is normal.Brynn Siegel RN documented in this encounter Plan of Treatment Not on filedocumented as of this encounter Visit Diagnoses Not on filedocumented in this encounter Care Teams Dubbing Machine Operator Relationship Specialty Start Date End Date Vicki Mcgregor APRN MANAGER BILINGUAL PCP - General 07/21/03 [address] [place] [address] documented as of this encounter
--- OUTSIDE RECORDS SUMMARY | 2022-06-12 19:11 | XMS_ITS | Encounter Summary ---
:1975 Author Organization [facility] Address [address] [place] [address] Care Team Providers Name Role Phone Vicki Mcgregor YUE SERVICE CENTER SPECIALIST Primary Care Provider Reason for Visit Reason Comments Care Mother states baby is active . Encounter Details Date Type Department Care Team Description 07/10/2006 Office [facility] Romi Abreu OTHER Visit Paco Mohamud MD NORMAL PREG 1440 [facility] [place] (Primary Dx) KENDY Antonio [address] [place] [address] [facility] 212 KEND[place]TONIO [id number] (Wo rk) Social History Tobacco Use Types Packs/Day Years Used Date Smoking Tobacco: Never Alcohol Use Standard Drinks/Week Comments No 0 (1 standard drink = 0.6 oz pure alcoho l) Sex Assigned at Date Recorded Not on file documented as of this encounter Last Filed Vital Signs Vital Sign Reading Time Taken Comments Blood Pressure 102/64 07/10/2006 4:00 PM DIRECT SERVICE PROVIDER Pulse 86 07/10/2006 4:00 PM DIRECT SERVICE PROVIDER Temperature - - Respiratory Rate - - Oxygen Saturation - - Inhaled Oxygen Concentration - - Weight 87.5 kg (193 lb) 07/10/2006 4:00 PM DIRECT SERVICE PROVIDER Height - - Body Mass Index 33.65 03/11/2006 10:30 AM CDT documented in this encounter Patient Instructions Patient InstructionsRomi Abreu MD - 07/10/2006 5:26 PM CST Precautions for signs of labor, rupture of membranes, vaginal bleeding discussed. CT SERVICE PROVIDER documented in this encounter Progress Notes Romi Abreu MD - 03/08/2010 4:45 PM CDT Doing well;denies vaginal bleeding, contractions, loss of fluid; + movement reported. Plan [address] SERVICE PROVIDER documented in this encounter Nursing Notes 07/10/2006 4:00 PM CST >> MARYAM ANDRES 07/10/2006 4:09 pm Gestational Age: 26w 2d Crystal Birdie Perez presents for Patient presents with: Care - Mother states baby is active. Initial BP 102/64 Pulse 86 Wt 193 lbs (87.5kg) LMP OB (10/14/06) BP completed using cuff size: regular nurse assisted visit. Maryam Andres BOX COVERING MACHINE OPERATOR documented in this encounter Plan of Treatment Not on filedocumented as of this encounter Procedures Procedure Name Priority Date/Time Associated Diagnosis Comme nts HCL OB SUGAR & Routine 07/10/2006 4:52 PM Supervis Other Resul ts for this ALBUMIN DIRECT SERVICE PROVIDER Normal Preg procedure are i n the results section. documented in this encounter Results OB SUGAR & ALBUMIN (07/10/2006 4:52 PM DIRECT SERVICE PROVIDER) P athologist Signature Protein Negative mg/dL [place] Albumin Urine [facility] Glucose Urine Negative mg/dL [facility] Specimen Anatomical Collection Method Collection Time Receive d Time (Source) Location / / Volume Laterality 07/10/2006 4:52 PM 7 4:55 DIRECT SERVICE PROVIDER PM DIRECT SERVICE PROVIDER Romi Abreu MD LABORATORY Performing Organization Address City/State/ZIP Code Phon e Number [facility] [address] [place] [address] [facility] documented in this encounter Visit Diagnoses Diagnosis Supervision of other normal - Primary documented in this encounter Care Teams Soda Clerk Relationship Specialty Start Date End Date Vicki Mcgregor APRN SERVICE CENTER SPECIALIST PCP - General 07/21/03 [address] [place] [address] documented as of this encounter
--- OUTSIDE RECORDS SUMMARY | 2022-06-12 19:11 | XMS_ITS | Encounter Summary ---
:1975 Author Organization [facility] Address [address] [place] [address] Care Team Providers Name Role Phone Vicki Mcgregor YUE PIGMENT PUMPER Primary Care Provider [phone] Reason for Visit Reason Comments Care Mother states baby is active . Encounter Details Date Type Department Care Team Description 10/09/2006 Office [facility] Romi Abreu OTHER Visit Paco Mohamud MD NORMAL PREG 1440 [facility] [employer] (Primary Dx) KENDY Antonio [address] [place] [address] [facility] 212 KENDY ANTONIO [phone] (Wo rk) Social History Tobacco Use Types Packs/Day Years Used Date Smoking Tobacco: Never Alcohol Use Standard Drinks/Week Comments No 0 (1 standard drink = 0.6 oz pure alcoho l) Sex Assigned at Date Recorded Not on file documented as of this encounter Last Filed Vital Signs Vital Sign Reading Time Taken Comments Blood Pressure 120/78 10/09/2006 4:00 PM CDT Pulse 88 10/09/2006 4:00 PM CDT Temperature - - Respiratory Rate - - Oxygen Saturation - - Inhaled Oxygen Concentration - - Weight 93.9 kg (207 lb) 10/09/2006 4:00 PM CDT Height - - Body Mass Index 36.09 09/15/2006 4:00 PM CDT documented in this encounter Patient Instructions Patient InstructionsRomi Abreu MD - 10/09/2006 4:28 PM CDT Precautions for signs of labor, rupture of membranes, vaginal bleeding discussed, kick counts reviewed. documented in this encounter Progress Notes Romi Abreu MD - 03/08/2010 4:45 PM CDT denies vaginal bleeding, contractions, loss of fluid; + movement reported. Olive Andres - 10/09/2006 4:05 PM CDT Gestational Age: 39w 2d Crystal Birdie Perez presents for Chief Complaint Patient presents with ??? Care Mother states baby is active. Initial BP 120/78 Pulse 88 Wt 207 lbs (93.9kg) LMP OB (10/14/06) BP completed using cuff size: regular nurse assisted visit. Olive Andres PRESSER AND SHAPER KNITTED GOODS documented in this encounter Plan of Treatment Not on filedocumented as of this encounter Procedures Procedure Name Priority Date/Time Associated Diagnosis Comme nts HCL OB SUGAR & Routine 10/09/2006 4:01 PM Supervis Other Resul ts for this ALBUMIN CDT Normal Preg procedure are i n the results section. documented in this encounter Results OB SUGAR & ALBUMIN (10/09/2006 4:01 PM CDT) P athologist Signature Protein Trace mg/dL [place] Albumin Urine [facility] Glucose Urine Negative mg/dL [facility] Specimen Anatomical Collection Method Collection Time Receive d Time (Source) Location / / Volume Laterality 10/09/2006 4:01 PM 7 4:04 CDT PM CDT Romi Abreu MD LABORATORY Performing Organization Address City/State/ZIP Code Phon e Number [facility] [address] [place] [address] [facility] documented in this encounter Visit Diagnoses Diagnosis Supervision of other normal - Primary documented in this encounter Care Teams Batch Unloader Relationship Specialty Start Date End Date Vicki Mcgregor APRN PIGMENT PUMPER PCP - General 07/21/03 [address] [place] [address] documented as of this encounter
--- OUTSIDE RECORDS SUMMARY | 2022-06-12 19:11 | XMS_ITS | Encounter Summary ---
:1975 Author Organization [facility] Address [address] [place] [address] Care Team Providers Name Role Phone Vicki Mcgregor YUE TOBACCO PRIZER Primary Care Provider [phone] Reason for Visit Reason Comments Post Exam Encounter Details Date Type Department Care Team Description 12/18/2006 Office [facility] Romi Abreu POSTPART FOLLOW-UP (Primary Dx); Visit Paco Mohamud MD VACCINE FOR DIPTH/TET/PERTUSS; 14[address] [employer] CONTRACEPTIVE [address] Antonio [facility] 212 [address] KENDY ANTONIO [phone] Social History Tobacco Use Types Packs/Day Years Used Date Smoking Tobacco: Never Alcohol Use Standard Drinks/Week Comments No 0 (1 standard drink = 0.6 oz pure alcoho l) Sex Assigned at Date Recorded Not on file documented as of this encounter Last Filed Vital Signs Vital Sign Reading Time Taken Comments Blood Pressure 114/62 12/18/2006 3:00 PM CDT Pulse 98 12/18/2006 3:00 PM CDT Temperature - - Respiratory Rate - - Oxygen Saturation - - Inhaled Oxygen Concentration - - Weight 85.7 kg (189 lb) 12/18/2006 3:00 PM CDT Height - - Body Mass Index 32.95 09/15/2006 4:00 PM CDT documented in this encounter Progress Notes Michell Platt - 12/18/2006 3:11 PM CDT SUBJECTIVE: Audra is here for a 6-week checkup. Delivery date was 10/18/06. She had a of a viable boy, weight 7 pounds 8 oz., with none complications. Since delivery, she has been breast feeding. She has no signs of infection, bleeding or othercomplications. She is not . We discussed contraceptions and she has chosen micronor. She hashad intercourse since delivery and complains of marked discomfort. Patient screened for depression and complaints are NEGATIVE. Screening has also been completed for intimate partner violence. Nurse assisted visit. Michell Platt MA. EXAM: Today's Depression Rating was 3 GENERAL healthy, alert and no distress NECK: no adenopathy, no asymmetry, masses, or scars, thyroid normal to palpation and trachea midlineand normal to palpation GI: bowel sounds normal, no masses palpable, no organomegaly, soft, non-tender, symmetric and umbilicus normal TRANSFORMER TESTER PELVIC: normal external genitalia, normal urethral meatus, normal vaginal mucosa, normal cervix,normal adnexa, no masses or tenderness and uterus normal size and shape ASSESSMENT: Normal exam after . PLAN: Return as needed or at time of next expected pap, pelvic, or breast exam. documented in this encounter Nursing Notes 12/18/2006 3:00 PM CDT >> MICHELL PLATT 12/18/2006 3:15 pm Audra Perez presents for post visit. Initial BP 114/62 Pulse 98 Wt 189 lbs (85.7kg) LMP OB (10/14/06) Estimated Body mass index is 32.95 kg/(m^2) as calculated from: Height of 5' 3.5 (1.613 m) as of 09/15/06 Weight of 189 lbs (85.730 kg) as of this encounter. BP completed using cuff size: regular Nurse assisted visit. Michell Platt MA. documented in this encounter Plan of Treatment Not on filedocumented as of this encounter Visit Diagnoses Diagnosis Routine follow-up - Primary Need for prophylactic vaccination with c ombined [id number]-[id number] (DTP) vaccine Unspecified contraceptive management documented in this encounter Care Teams Director Of Physical Therapy Relationship Specialty Start Date End Date Vicki Mcgregor APRN TOBACCO PRIZER PCP - General 07/21/03 [address] [place] [id number] documented as of this encounter
--- OUTSIDE RECORDS SUMMARY | 2022-06-12 19:11 | XMS_ITS | Encounter Summary ---
:1975 Author Organization [facility] Address [address] [place] [address] Care Team Providers Name Role Phone Vicki Mcgregor YUE DAMPENER Primary Care Provider Reason for Visit Reason Comments Ultrasound Encounter Details Date Type Department Care Team Description 05/16/2006 Orders Only [facility] FELIX PERVIS OTHER NORMAL PREG; [facility] SCREENING NEC [address] [place] [address] Social History Tobacco Use Types Packs/Day Years Used Date Smoking Tobacco: Never Alcohol Use Standard Drinks/Week Comments No 0 (1 standard drink = 0.6 oz pure alcoho l) Sex Assigned at Date Recorded Not on file documented as of this encounter Plan of Treatment Not on filedocumented as of this encounter Procedures Procedure Name Priority Date/Time Associated Diagnosis Comme nts US OB MATERNAL Routine 05/19/2006 Supervis Other Normal R esults for this W/DET EXAM, Preg procedure are in the SINGLE GESTATION Screening resu lts section. Nec documented in this encounter Results US, PREG UTER, REAL TIME W/IMAGE DOC, FETL & MATRNL, + DETL FETL EXM, TRANSABD; SINGL/1ST ADD'L GEST (05/19/2006) Anatomical Region Laterality Modality Ultrasound Impressions 05/19/2006 Complete transabdominal obstetric ultrasound. Gross survey within normal limits. Corresponding sono graphic and ??menstrual EGA and EDC. Technically difficult study due to maternal body habitus. ?? YARELI LEONARD M.D. Narrative 05/19/2006 ULTRASOUND - COMPLETE OB (18+) Referring Provider: Romi Abreu Clinic: [facility] Paco Disk: [id number] INDICATIONS FOR ULTRASOUND: OB History: Present Conditions: Initial Survey (18-26 weeks) CLINICAL INFORMATION LMP: [id number] ??sure EDC: 85Xuq51 ??EGA: 18.4 wks Previous US: No ? MEASUREMENTS BPD: 4.5cm ??MA: 19w4d ?Cer: 1.9cm ? ?MA:19w4d HC: 16.7cm ??MA: 19w3d ?AC: 14.3cm ? ?MA:19w4d FL: 3.0cm ?? MA: 19w1d ?Hum: 3.0cm ? ?MA:19w6d FL/AC:20.7% ?? FL/BPD:65.6% ?? HC/AC:1.1 7 ?? CI:80% FHR:`47bpm-reg ?? OVI: wnl ?? EDC: 14Gzu70 ?EGA:19.3wks correspond EFW:290g ? SURVEY Type: Leslie ?Presentation: Ve rtex spine ? Placenta location: posterior and mid ?? Grade: na ? 4ChHrt: wnl ? Outflow tract:wnl ?Arches: wnl Umb cord: 3v ? Insertion: wnl ?Abdomen: wnl ? Nuch/Neck: wnl ? Spine: wnl ? Di aphragm: wnl Stomach: wnl ? Kidneys: wnl ? Bl adder: wnl ? Head: wnl ? Ventricles: wnl ? Ce rebellum: wnl Profile: wnl ? Face: wnl ?Lips: wnl Arms: wnl ?Legs: wnl ?Hands: Fis doug ?Feet: wnl Gender: NV ? Maternal Adnexa: Wnl Romi Abreu MD SPECIAL IMAGING STUDIES documented in this encounter Visit Diagnoses Diagnosis Supervision of other normal Other screening Other specified screening documented in this encounter Care Teams Organizational Effectiveness Consultant Relationship Specialty Start Date End Date Vicki Mcgregor APRN DAMPENER PCP - General 07/21/03 [address] [place] [address] documented as of this encounter
--- OUTSIDE RECORDS SUMMARY | 2022-06-12 19:11 | XMS_ITS | Encounter Summary ---
:1975 Author Organization [facility] Address [address] [place] [address] Care Team Providers Name Role Phone Vicki Mcgregor YUE STAMP PAD FINISHER Primary Care Provider [phone] Reason for Visit Reason Comments URI BRIDGES, cough, congestion, heavy chest, sore throat from coughing, bodyaches, fatigued, ears feel plugged x 5 days Encounter Details Date Type Department Care Team Description 02/06/2007 Office Visit [facility] Sona Malcolm MD COUGH (Primary Dx) [address] [id number] [address] [phone] (Wo rk) Social History Tobacco Use Types Packs/Day Years Used Date Smoking Tobacco: Never Alcohol Use Standard Drinks/Week Comments No 0 (1 standard drink = 0.6 oz pure alcoho l) Sex Assigned at Date Recorded Not on file documented as of this encounter Last Filed Vital Signs Vital Sign Reading Time Taken Comments Blood Pressure 102/58 02/06/2007 2:15 PM CDT Pulse 81 02/06/2007 2:15 PM CDT Temperature 36.9 ??C (98.5 ??F) 02/06/2007 2:15 PM CDT Respiratory Rate - - Oxygen Saturation 98% 02/06/2007 2:15 PM CDT Inhaled Oxygen Concentration - - Weight 89.4 kg (197 lb) 02/06/2007 2:15 PM CDT Height 161.3 cm (5' 3.5) 02/06/2007 2:15 PM CDT Body Mass Index 34.35 02/06/2007 2:15 PM CDT documented in this encounter Progress Notes Sona Malcolm - 02/06/2007 2:37 PM CDT SUBJECTIVE: This is a 31 year old female with- Last Friday started with neck pain and body ache, and Friday started losing voice and coughing a lotof phlegm-yellow green, no fevers, no chills, not a smoker, breast feeding, no hx of allergies/asthma. This is going on for 6 days, tried otc mucinex and tylenol. Voice now hoarse and hard to speak, nonasal issues,some PND. No wheezing or sob, no sick contact-except son with cough. No hx of diabetes.Pt also feels facial congestion, upper teeth hurts. baby. Past Medical History Diagnosis Date ??? NO ACTIVE PROBLEMS .sph Current outpatient prescriptions Medication Sig ??? MUCINEX 600 MG OR TBCR 1 TABLET EVERY 12 HOURS NEEDED ??? TYLENOL 325 MG OR TABS ONE TO TWO TABLETS EVERY 4 TO 6 HOURS NEEDED FOR PAIN OBJECTIVE: Filed Vitals: 02/06/2007 2:15 PM BP: 102/58 Pulse: 81 Temp: 98.5 F (36.9 C) TempSrc: Oral Height: 5' 4 (1.61 m) Weight: 197 lbs (89.4 kg) SpO2: 98% EXAM: Constitutional: healthy, alert and no distress Neck: Neck supple. No adenopathy. ENT: NEGATIVE for ear, mouth and throat problems and nose with mild mod congestion with clear-white thick drainage Cardiovascular: negative Respiratory: negative Integument: no suspicious lesions or rashes Face: slight palpable tenderness at frontal sinus area Neg for meningitis clinically testing done and neg ASSESSMENT: This is a 31 year old female with 786.2 COUGH (primary encounter diagnosis) Note: Plan: AMOXIL 500 MG OR TABS Ddx discussed, with amount of pnd and voice changes-(pt not a smoker), likely causing cough, clinicall this is not pneumonia, likely bronchitis with early sinusitis vs viral vs other, pt has failed otc treatment for 6 days,pt was discussed ddx, pt will be treated with abx for possible sinus along with bronchial bacterial infection .Supportive/symptomatic cares, push fluids and liquids. Follow up if no improvement and/or still having problems and/or any worsening,pt was discussed usageof abx while she is breast feeding-risks,benefits and alternatives Recommend HCM if not uptodate. Sona Malcolm MD documented in this encounter Nursing Notes 02/06/2007 2:15 PM CDT >> ELIZABETH TONY 02/06/2007 2:26 pm Patient presents with: URI - BRIDGES, cough, congestion, heavy chest, sore throat from coughing, bodyaches, fatigued, ears feelplugged x 5 days Audra Perez presents for as above. Initial BP 102/58 Pulse 81 Temp (Src) 98.5 (Oral) Ht 5' 3.5 (1.61m) Wt 197 lbs (89.4kg) SaO2 98% LMP OB (10/14/06) Body mass index is 34.35 kg/(m^2).. BP completed using cuff size: regular Elizabeth Tony HYDRO ELECTRIC STATION OPERATOR documented in this encounter Plan of Treatment Not on filedocumented as of this encounter Visit Diagnoses Diagnosis Cough - Primary documented in this encounter Care Teams Grocery Store Clerk Relationship Specialty Start Date End Date Vicki Mcgregor APRN STAMP PAD FINISHER PCP - General 07/21/03 [address] [place] [address] documented as of this encounter
--- OUTSIDE RECORDS SUMMARY | 2022-06-12 19:11 | XMS_ITS | Encounter Summary ---
:1975 Author Organization [facility] Address [address] [place] [address] Care Team Providers Name Role Phone Vicki Mcgregor YUE CORPORATE OFFICER Primary Care Provider [phone] Reason for Visit Reason Comments Care Encounter Details Date Type Department Care Team Description 10/02/2006 Office [facility] Romi Abreu OTHER Visit Pcao Mohamud MD NORMAL PREG 1440 [facility] groSolar (Primary Dx) KENDY Antonio [address] [facility] [address] [facility] 212 KENDY ANTONIO [phone] (Wo rk) Social History Tobacco Use Types Packs/Day Years Used Date Smoking Tobacco: Never Alcohol Use Standard Drinks/Week Comments No 0 (1 standard drink = 0.6 oz pure alcoho l) Sex Assigned at Date Recorded Not on file documented as of this encounter Last Filed Vital Signs Vital Sign Reading Time Taken Comments Blood Pressure 126/74 10/02/2006 11:00 AM CDT Pulse 78 10/02/2006 11:00 AM CDT Temperature - - Respiratory Rate 16 10/02/2006 11:00 AM CDT Oxygen Saturation - - Inhaled Oxygen Concentration - - Weight 95.3 kg (210 lb) 10/02/2006 11:00 AM CDT Height - - Body Mass Index 36.62 09/15/2006 4:00 PM CDT documented in this encounter Patient Instructions Patient InstructionsRomi Abreu MD - 10/02/2006 2:15 PM CDT Precautions for signs of labor, rupture of membranes, vaginal bleeding discussed, kick counts reviewed. documented in this encounter Progress Notes Romi Abreu MD - 03/08/2010 4:45 PM CDT denies vaginal bleeding, contractions, loss of fluid; + movement reported. Michell Gunn - 10/02/2006 11:03 AM CDT Audra Perez presents for care - Gestational Age: 38w 2d . Initial BP 126/74 Pulse 78 Resp 16 Wt 210 lbs (95.3kg) LMP OB (10/14/06) Estimated Body mass index is 36.61 kg/(m^2) as calculated from: Height of 5' 3.5 (1.613 m) as of 09/15/06 Weight of 210 lbs (95.255 kg) as of this encounter. BP completed using cuff size: regular Nurse assisted visit. Michell Gunn MA. documented in this encounter Plan of Treatment Not on filedocumented as of this encounter Procedures Procedure Name Priority Date/Time Associated Diagnosis Comme nts HCL OB SUGAR & Routine 10/02/2006 11:06 AM Supervis Other Resu lts for this ALBUMIN CDT Normal Preg procedure are i n the results section. documented in this encounter Results OB SUGAR & ALBUMIN (10/02/2006 11:06 AM CDT) P athologist Signature Protein Trace mg/dL [place] Albumin Urine [facility] Glucose Urine Negative mg/dL [facility] Specimen Anatomical Collection Method Collection Time Receive d Time (Source) Location / / Volume Laterality 10/02/2006 11:06 10/02/2006 AM CDT 11:09 AM CDT Romi Abreu MD LABORATORY Performing Organization Address City/State/ZIP Code Phon e Number [facility] [address] [place] [address] [facility] documented in this encounter Visit Diagnoses Diagnosis Supervision of other normal - Primary documented in this encounter Care Teams Pantograph Engraver Relationship Specialty Start Date End Date Vicki Mcgregor APRN CORPORATE OFFICER PCP - General 07/21/03 [address] [place] [address] documented as of this encounter
--- OUTSIDE RECORDS SUMMARY | 2022-06-12 19:11 | XMS_ITS | Encounter Summary ---
:1975 Author Organization [facility] Address [address] [place] [address] Care Team Providers Name Role Phone Vicki Mcgregor YUE SATELLITE MANAGER Primary Care Provider [phone] Reason for Visit Reason Comments Blood Draw Encounter Details Date Type Department Care Team Description 07/24/2006 Orders Only [facility] Eag an SUPERVIS OTHER NORMAL PREG 14[address] [place] [address] Social History Tobacco Use Types Packs/Day Years Used Date Smoking Tobacco: Never Alcohol Use Standard Drinks/Week Comments No 0 (1 standard drink = 0.6 oz pure alcoho l) Sex Assigned at Date Recorded Not on file documented as of this encounter Plan of Treatment Not on filedocumented as of this encounter Procedures Procedure Name Priority Date/Time Associated Diagnosis Comme nts GLUCOSE TOLERANCE Routine 07/24/2006 8:13 AM Supervis Other Re sults for this GEST.(3 HR.) COMMUNICATIONS DEPARTMENT CHAIR Normal Preg procedure are i n the results section. documented in this encounter Results GLUCOSE TOLERANCE GEST.(3 HR.) (07/24/2006 8:13 AM COMMUNICATIONS DEPARTMENT CHAIR) P athologist Signature Glucose Fasting 87 60 - 95 [place] 100 Grams mg/dL [facility] Glucose 1 Hour 173 60 - 180 [place] 100 Grams mg/dL [facility] Glucose 2 Hour 132 60 - 155 [place] 100 Grams mg/dL [facility] Glucose 3 Hour 126 60 - 140 [place] 100 Grams mg/dL [facility] Specimen Anatomical Collection Method Collection Time Receive d Time (Source) Location / / Volume Laterality 07/24/2006 8:13 AM 7 8:16 COMMUNICATIONS DEPARTMENT CHAIR AM COMMUNICATIONS DEPARTMENT CHAIR Romi Abreu MD LABORATORY Performing Organization Address City/State/ZIP Code Phon e Number [facility] 1440 [facility] [place] [address] [facility] documented in this encounter Visit Diagnoses Diagnosis Supervision of other normal documented in this encounter Care Teams Door Frame Assembler Machine Relationship Specialty Start Date End Date Vicki Mcgregor APRN CNP PCP - General 07/21/03 [address] [place] [address] documented as of this encounter
--- OUTSIDE RECORDS SUMMARY | 2022-06-12 19:11 | XMS_ITS | Encounter Summary ---
:1975 Author Organization [facility] Address [address] [place] [address] Care Team Providers Name Role Phone Vicki Mcgregor YUE FINANCIAL RETIREMENT PLAN SPECIALIST Primary Care Provider [phone] Reason for Visit Reason Comments Care Encounter Details Date Type Department Care Team Description 2006 Office [facility] Romi Abreu OTHER Visit Paco Mohamud MD NORMAL PREG 1440 [facility] [employer] [facility] (Primary Dx) KENDY Antonio 346 [facility] [address] [facility] 212 KEND[address] ANTONIO [phone] (Wo rk) Social History Tobacco Use Types Packs/Day Years Used Date Smoking Tobacco: Never Alcohol Use Standard Drinks/Week Comments No 0 (1 standard drink = 0.6 oz pure alcoho l) Sex Assigned at Date Recorded Not on file documented as of this encounter Last Filed Vital Signs Vital Sign Reading Time Taken Comments Blood Pressure 114/68 2006 3:00 PM CDT Pulse 72 2006 3:00 PM CDT Temperature - - Respiratory Rate - - Oxygen Saturation - - Inhaled Oxygen Concentration - - Weight 94.3 kg (208 lb) 2006 3:00 PM CDT Height - - Body Mass Index 36.27 09/15/2006 4:00 PM CDT documented in this encounter Patient Instructions Patient InstructionsRomi Abreu MD - 2006 3:29 PM CDT Precautions for signs of labor, rupture of membranes, vaginal bleeding discussed, kick counts reviewed. documented in this encounter Progress Notes Romi Abreu MD - 03/08/2010 4:45 PM CDT denies vaginal bleeding, contractions, loss of fluid; + movement reported. bilateral pedel edema; neg homans, no erythema, cords. Diane Silva - 2006 2:57 PM CDT Gestational Age: 37w 2d.Audra Perez presents for visit. Pt doing well but concerned about the swelling in her ankles. Initial BP 114/68 Pulse 72 Wt 208 lbs (94.3kg) LMP OB (10/14/06) Estimated Body mass index is 36.26 kg/(m^2) as calculated from: Height of 5' 3.5 (1.613 m) as of 09/15/06 Weight of 208 lbs (94.348 kg) as of this encounter. BP completed using cuff size: large Ivelisse Packer M.A. documented in this encounter Plan of Treatment Not on filedocumented as of this encounter Procedures Procedure Name Priority Date/Time Associated Diagnosis Comme nts HCL OB SUGAR & Routine 2006 2:52 PM Supervis Other Resul ts for this ALBUMIN CDT Normal Preg procedure are i n the results section. documented in this encounter Results OB SUGAR & ALBUMIN (2006 2:52 PM CDT) P athologist Signature Protein Trace mg/dL [place] Albumin Urine [facility] Glucose Urine Negative mg/dL [facility] Specimen Anatomical Collection Method Collection Time Receive d Time (Source) Location / / Volume Laterality 2006 2:52 PM 7 2:55 CDT PM CDT Romi Abreu MD LABORATORY Performing Organization Address City/State/ZIP Code Phon e Number [address] [address] [facility] documented in this encounter Visit Diagnoses Diagnosis Supervision of other normal - Primary documented in this encounter Care Teams Ore Bridge Operator Relationship Specialty Start Date End Date Vicki Mcgregor APRN FINANCIAL RETIREMENT PLAN SPECIALIST PCP - General 07/21/03 [address] [place] [address] documented as of this encounter
--- OUTSIDE RECORDS SUMMARY | 2022-06-12 19:11 | XMS_ITS | Encounter Summary ---
:1975 Author Organization [facility] Address [address] [place] [address] Care Team Providers Name Role Phone Vicki Mcgregor APRN SASH CLAMP OPERATOR Primary Care Provider [phone] Reason for Visit Reason Comments Ultrasound Encounter Details Date Type Department Care Team Description 10/07/2005 Orders Only [facility] Women's FE MALE GENITAL SYMPTOMS NOS; [facility] [place] ABDOMINAL PAIN RLQ [address] [place] [address] Social History Tobacco Use Types Packs/Day Years Used Date Smoking Tobacco: Never Alcohol Use Standard Drinks/Week Comments No 0 (1 standard drink = 0.6 oz pure alcoho l) Sex Assigned at Date Recorded Not on file documented as of this encounter Plan of Treatment Not on filedocumented as of this encounter Procedures Procedure Name Priority Date/Time Associated Diagnosis Comme [facility] US PELVIC NON-OB, Routine 10/07/2005 Female Genital Resul ts for this COMPLETE Symptoms Nos procedure are in the Abdominal Pain Rlq results s ection. documented in this encounter Results SONO PELVIS COMPLETE (10/07/2005) Anatomical Region Laterality Modality Ultrasound Impressions 10/07/2005 Complete pelvic ultrasound using realtime transabdominal and transvaginal scanning Normal pelvic sonographic findings. 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 ?? Position is anteverted. ??Contour is smt h/reg. Endo cav: 7mm ? Smooth/regular/wnl Cervix: ??wnl Right ovary: 3.6x2.2x2.1cm. ?? Wnl and d ominant follicle Left ovary: 2.9x1.5x1.8cm. ??Wnl Cul de sac: no free fluid . Vicki Mcgregor APRN, CNP SPECIAL IMAGING STUDIES documented in this encounter Visit Diagnoses Diagnosis Unspecified symptom associated with fema le genital organs Abdominal pain, right lower quadrant documented in this encounter Care Teams Bingo Clerk Relationship Specialty Start Date End Date Vicki Mcgregor APRN CNP PCP - General 07/21/03 [address] [place] [address] documented as of this encounter
--- OUTSIDE RECORDS SUMMARY | 2022-06-12 19:11 | XMS_ITS | Encounter Summary ---
:1975 Author Organization [facility] Address [address] [place] [address] Care Team Providers Name Role Phone Vicki Mcgregor YUE PETROLEUM PLANT OPERATOR Primary Care Provider [phone] Reason for Visit Reason Comments Care Encounter Details Date Type Department Care Team Description 03/11/2006 Office [facility] Eag an SUPERVIS OTHER NORMAL Visit 14[address] [facility] PREG (Primary Dx) [place] [address] Social History Tobacco Use Types Packs/Day Years Used Date Smoking Tobacco: Never Alcohol Use Standard Drinks/Week Comments No 0 (1 standard drink = 0.6 oz pure alcoho l) Sex Assigned at Date Recorded Not on file documented as of this encounter Last Filed Vital Signs Vital Sign Reading Time Taken Comments Blood Pressure 104/70 03/11/2006 10:30 AM CDT Pulse 84 03/11/2006 10:30 AM CDT Temperature - - Respiratory Rate - - Oxygen Saturation - - Inhaled Oxygen Concentration - - Weight 86.2 kg (190 lb) 03/11/2006 10:30 AM CDT Height 161.3 cm (5' 3.5) 03/11/2006 10:30 AM CDT Body Mass Index 33.13 03/11/2006 10:30 AM CDT documented in this encounter Nursing Notes 03/11/2006 10:30 AM CDT >> JUVENTINO BELTRAN 03/11/2006 11:58 am 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 She is avoiding both of those duties. Will discuss further with Dr. Abreu and first visit. Amara Beltran RN >> JUVENTINO BELTRAN 03/11/2006 11:54 am Audra Perez presents for long OB nurse appt. book and folder (containing educational hand-outs and brochures) given to patient. Information in folder reviewed. Questions answered. labs obtained. Appointment for MD new visit scheduled on 03/24/[address] Abreu. Initial BP 104/70 Pulse 84 Ht 5' 3.5 (1.61m) Wt 190 lbs (86.2kg) LMP OB (10/14/06) Body massindex is 33.12 kg/(m^2).. BP completed using cuff size: regular Gestational Age: 9w Amara Beltran RN documented in this encounter Plan of Treatment Not on filedocumented as of this encounter Procedures Procedure Name Priority Date/Time Associated Diagnosis Comme nts HCL HCG URINE QUAL Routine 03/11/2006 11:39 AM Supervis Other Results for this CDT Normal Preg procedure are i n the results section. HCL UA MICRO IF Routine 03/11/2006 11:39 AM Supervis Other Res ults for this POSITIVE CDT Normal Preg procedure are i n the results section. CL AFF MICRO Routine 03/11/2006 11:39 AM Results for this EXAM-URINE CDT procedure are i n the results section. HCL CULTURE, URINE Routine 03/11/2006 11:38 AM Supervis Other Results for this (MISYS) CDT Normal Preg procedure are i n the results section. ABO/RH TYPE & Routine 03/11/2006 11:38 AM Supervis Other Resul ts for this SCREEN CDT Normal Preg procedure are i n the results section. CL AFF RPR SCREEN Routine 03/11/2006 11:37 AM Supervis Other R esults for this W/REFLEX TO CONFIRM CDT Normal Preg procedur e are in the results section. CL AFF HEP B Routine 03/11/2006 11:37 AM Supervis Other Result s for this SURFACE ANTIGEN CDT Normal Preg procedure ar e in the results section. CL AFF CBC WITH Routine 03/11/2006 11:37 AM Supervis Other Res ults for this PLATELETS CDT Normal Preg procedure are i n the results section. HCL RUBELLA AB IGG Routine 03/11/2006 11:37 AM Supervis Other Results for this CDT Normal Preg procedure are i n the results section. HCL HIV 1 & 2 Routine 03/11/2006 11:37 AM Supervis Other Resul ts for this ANTIBODY CDT Normal Preg procedure are i n the results section. documented in this encounter Results (ABNORMAL) MICRO EXAM-URINE (03/11/2006 11:39 AM CDT) [facility] Method Time Signature WBC Urine O - 2 0 - 2 /HPF [facility] RBC Urine 5-10 (A) 0 - 2 /HPF [facility] Squamous EPI Few FEW /LPF [facility] Mucous Urine Present (A) NEG /LPF [facility] Specimen Anatomical Collection Method Collection Time Receive d Time (Source) Location / / Volume Laterality 03/11/2006 11:39 03/11/2006 AM CDT 11:44 AM CDT Romi Abreu MD LABORATORY Performing Organization Address City/[facility]/ZIP Code Phon e Number [address] [address] [phone] [facility] (ABNORMAL) HCG QUAL URINE (03/11/2006 11:39 AM CDT) [facility] Method Time Signature HCG Qual Urine Positive (A) NEG [facility] Specimen Anatomical Collection Method Collection Time Receive d Time (Source) Location / / Volume Laterality 03/11/2006 11:39 03/11/2006 AM CDT 11:44 AM CDT Romi Abreu MD LABORATORY Performing Organization Address [facility] Phon e Number [address] [address] [phone] [facility] (ABNORMAL) UA, MICRO IF* [[id number]] (03/11/2006 11:39 AM CDT) [facility] Method Time Signature Color Urine Yellow [facility] Appearance Urine Slightly [place] Cloudy [facility] Glucose Urine Negative NEG mg/dL [facility] Bilirubin Urine Negative NEG [facility] Ketones Urine Trace (A) NEG mg/dL [facility] Specific [place] >1.030 1.003 - [place] Urine 1.035 [facility] Blood Urine Moderate (A) NEG [facility] pH Urine 5.0 5.0 - 7.0 [place] pH [facility] Protein Albumin Negative NEG mg/dL [place] Urine [facility] Urobilinogen 0.2 0.2 - 1.0 [place] Urine EU/dL [facility] Nitrite Urine Negative NEG [facility] Leukocyte Negative NEG [place] Esterase Urine [facility] Source Midstream [place] Urine [facility] Specimen Anatomical Collection Method Collection Time Receive d Time (Source) Location / / Volume Laterality 03/11/2006 11:39 03/11/2006 AM CDT 11:44 AM CDT Romi Abreu MD LABORATORY Performing Organization Address City/State/ZIP Code Phon e Number [facility] [address] [place] [address] [facility] CULTURE, URINE (MISYS) [[id number]] (03/11/2006 11:38 AM CDT) Patholo gist Method Time Signature Specimen Midstream [place] Description Urine [facility] Culture Micro No growth [facility] Report status FINAL [place] [id number] [facility] Specimen Anatomical Collection Method Collection Time Receive d Time (Source) Location / / Volume Laterality 03/11/2006 11:38 03/11/2006 AM CDT 11:43 AM CDT Romi Abreu MD LABORATORY Performing Organization Address City/State/ZIP Code Phon e Number M [facility] [address] [address] [facility] ABO/RH TYPE & SCREEN [[id number]] (03/11/2006 11:38 AM CDT) Analysis Performed At Patho logist Time Signature ABO/Rh(D) O [facility] ABO/Rh(D) Pos [facility] Antibody Neg [place] Screen [facility] Specimen 03/14/2006 [place] Expires [facility] Specimen Anatomical Collection Method Collection Time Receive d Time (Source) Location / / Volume Laterality 03/11/2006 11:38 03/11/2006 AM CDT 11:43 AM CDT Romi Abreu MD LABORATORY Performing Organization Address City/State/ZIP Code Phon e Number M [facility] [address] [place] [address] [facility] HIV-1/HIV-2, SCREEN (03/11/2006 11:37 AM CDT) Analysis Performed At Patho logist Time Signature HIV 1&2 Negative NEG [facility] Antibody [facility] Specimen Anatomical Collection Method Collection Time Receive d Time (Source) Location / / Volume Laterality 03/11/2006 11:37 03/11/2006 AM CDT 11:42 AM CDT Romi Abreu MD LABORATORY Performing Organization Address City/State/ZIP Code Phon e Number [address] LABS RPR SCREEN W/REFLEX TO CONFIRM (03/11/2006 11:37 AM CDT) Analysis Performed At Patho logist Time Signature Rapid Plasma Negative NEG [facility] Reagin [facility] Specimen Anatomical Collection Method Collection Time Receive d Time (Source) Location / / Volume Laterality 03/11/2006 11:37 03/11/2006 AM CDT 11:42 AM CDT Romi Abreu MD LABORATORY Performing Organization Address City/State/ZIP Code Phon e Number [phone] [place] [address] LABS RUBELLA AB IGG (03/11/2006 11:37 AM CDT) P athologist Signature Rubella LATRICE 45 IU/mL [facility] [place] [facility] Comment: Interpretation: Positive, Immun e Specimen Anatomical Collection Method Collection Time Receive d Time (Source) Location / / Volume Laterality 03/11/2006 11:37 03/11/2006 AM CDT 11:42 AM CDT Romi Abreu MD LABORATORY Performing Organization Address City/State/ZIP Code Phon e Number [address] [phone] [facility] HEP B SURFACE ANTIGEN (03/11/2006 11:37 AM CDT) Analysis Performed At Patho logist Time Signature Hep B Surface Negative NEG [facility] Agn [facility] Specimen Anatomical Collection Method Collection Time Receive d Time (Source) Location / / Volume Laterality 03/11/2006 11:37 03/11/2006 AM CDT 11:42 AM CDT Romi Abreu MD LABORATORY Performing Organization Address City/State/ZIP Code Phon e Number [facility] [address] [place] [address] [facility] CBC WITH PLATELETS ( WITHOUT DIFF) [[id number]] (03/11/2006 11:37 AM CDT) P athologist Signature WBC 9.3 4.0 - 11.0 [place] [facility] 10e9/L [facility] RBC Count 4.20 3.8 - 5.2 [place] [facility] 10e12/L [facility] Hemoglobin 12.6 11.7 - [place] [facility] 15.7 g/dL CLINIC LAB Hematocrit 36.5 35.0 - [place] [facility] 47.0 % CLINIC LAB MCV 87 78 - 100 [place] [facility] fl [facility]IN[facility] LAB MCH 30.0 26.5 - [place] [facility] 33.0 pg CLINIC LAB MCHC 34.5 32.0 - [place] [facility] 36.0 g/dL CLINIC LAB RDW 14.2 10.0 - [place] [facility] 15.0 % [facility] LAB Platelet Count 343 150 - 450 [place] [facility] 10e9/L [facility] Specimen Anatomical Collection Method Collection Time Receive d Time (Source) Location / / Volume Laterality 03/11/2006 11:37 03/11/2006 AM CDT 11:42 AM CDT Romi Abreu MD LABORATORY Performing Organization Address City/State/ZIP Code Phon e Number [facility] [address] [place] [address] [facility] documented in this encounter Visit Diagnoses Diagnosis Supervision of other normal - Primary documented in this encounter Care Teams Compensation Vice President Relationship Specialty Start Date End Date Vicki Mcgregor APRN PETROLEUM PLANT OPERATOR PCP - General 07/21/03 [address] [place] [address] documented as of this encounter
--- OUTSIDE RECORDS SUMMARY | 2022-06-12 19:11 | XMS_ITS | Encounter Summary ---
:1975 Author Organization [facility] Address [address] [place] [address] Care Team Providers Name Role Phone Vicki Mcgregor YUE SWITCH ADJUSTER Primary Care Provider Reason for Visit Reason Comments Care Mother states baby is active . Encounter Details Date Type Department Care Team Description 08/25/2006 Office [facility] Romi Abreu OTHER Visit Paco Mohamud MD NORMAL PREG 1440 [facility] [employer] (Primary Dx) KENDY Antonio [address] [place] [phone] [facility] [address]IO [phone] (Wo rk) Social History Tobacco Use Types Packs/Day Years Used Date Smoking Tobacco: Never Alcohol Use Standard Drinks/Week Comments No 0 (1 standard drink = 0.6 oz pure alcoho l) Sex Assigned at Date Recorded Not on file documented as of this encounter Last Filed Vital Signs Vital Sign Reading Time Taken Comments Blood Pressure 124/60 08/25/2006 11:30 AM PRINTED CIRCUIT PHOTOGRAPHER Pulse 90 08/25/2006 11:30 AM PRINTED CIRCUIT PHOTOGRAPHER Temperature - - Respiratory Rate - - Oxygen Saturation - - Inhaled Oxygen Concentration - - Weight 90.7 kg (200 lb) 08/25/2006 11:30 AM PRINTED CIRCUIT PHOTOGRAPHER Height - - Body Mass Index 34.87 03/11/2006 10:30 AM CDT documented in this encounter Patient Instructions Patient InstructionsRomi Abreu MD - 08/25/2006 12:25 PM CST Precautions for signs of labor, rupture of membranes, vaginal bleeding discussed, kickcounts reviewed. TED CIRCUIT PHOTOGRAPHER documented in this encounter Progress Notes Romi Abreu MD - 03/08/2010 4:45 PM CDT denies vaginal bleeding, contractions, loss of fluid; + movement reported. TED CIRCUIT PHOTOGRAPHER Olive Andres - 08/25/2006 11:36 AM CST Gestational Age: 32w 6d Audra Perez presents for Chief Complaint Patient presents with ??? Care Mother states baby is active. Initial BP 124/60 Pulse 90 Wt 200 lbs (90.7kg) LMP OB (10/14/06) BP completed using cuff size: regular nurse assisted visit. Olive Andres CMA TED CIRCUIT PHOTOGRAPHER documented in this encounter Plan of Treatment Not on filedocumented as of this encounter Procedures Procedure Name Priority Date/Time Associated Diagnosis Comme nts HCL OB SUGAR & Routine 08/25/2006 12:56 PM Supervis Other Resu lts for this ALBUMIN PRINTED CIRCUIT PHOTOGRAPHER Normal Preg procedure are i n the results section. documented in this encounter Results OB SUGAR & ALBUMIN (08/25/2006 12:56 PM PRINTED CIRCUIT PHOTOGRAPHER) P athologist Signature Protein Trace mg/dL [place] Albumin Urine PACO [facility] Glucose Urine Negative mg/dL [facility] Specimen Anatomical Collection Method Collection Time Receive d Time (Source) Location / / Volume Laterality 08/25/2006 12:56 08/25/2006 PM PRINTED CIRCUIT PHOTOGRAPHER 12:59 PM PRINTED CIRCUIT PHOTOGRAPHER Romi Abreu MD LABORATORY Performing Organization Address City/State/ZIP Code Phon e Number [facility] [address] [place] [address] [facility] documented in this encounter Visit Diagnoses Diagnosis Supervision of other normal - Primary documented in this encounter Care Teams Reed Man Relationship Specialty Start Date End Date Vicki Mcgregor APRN CNP PCP - General 07/21/03 [address] [place] [address] documented as of this encounter
--- OUTSIDE RECORDS SUMMARY | 2022-06-12 19:11 | XMS_ITS | Encounter Summary ---
:1975 Author Organization [facility] Address [address] [place] [address] Care Team Providers Name Role Phone Vicki Mcgregor YUE BASIC ACOUSTIC ANALYST Primary Care Provider [phone] Reason for Visit Reason Comments Care Encounter Details Date Type Department Care Team Description 08/07/2006 Office [facility] Romi Abreu OTHER Visit Paco Mohamud MD NORMAL PREG 1440 [facility] [employer] (Primary Dx) KENDY Antonio [address] [facility] [address] [facility] [address] [phone] (Wo rk) Social History Tobacco Use Types Packs/Day Years Used Date Smoking Tobacco: Never Alcohol Use Standard Drinks/Week Comments No 0 (1 standard drink = 0.6 oz pure alcoho l) Sex Assigned at Date Recorded Not on file documented as of this encounter Last Filed Vital Signs Vital Sign Reading Time Taken Comments Blood Pressure 98/54 08/07/2006 11:00 AM PLANT CULTURE MANAGER Pulse 68 08/07/2006 11:00 AM PLANT CULTURE MANAGER Temperature - - Respiratory Rate - - Oxygen Saturation - - Inhaled Oxygen Concentration - - Weight 90.3 kg (199 lb) 08/07/2006 11:00 AM PLANT CULTURE MANAGER Height - - Body Mass Index 34.7 03/11/2006 10:30 AM CDT documented in this encounter Patient Instructions Patient InstructionsRomi Abreu MD - 08/08/2006 3:09 PM CST Precautions for signs of labor, rupture of membranes, vaginal bleeding discussed, kickcounts reviewed. T CULTURE MANAGER documented in this encounter Progress Notes Romi Abreu MD - 03/08/2010 4:45 PM CDT 3 hr gtt within normal limits; denies vaginal bleeding, contractions, loss of fluid; + movementreported. T CULTURE MANAGER Carmella Parrish - 08/07/2006 11:03 AM CST Chief Complaint Patient presents with ??? Care No concerns today Initial BP 98/54 Pulse 68 Wt 199 lbs (90.3kg) LMP OB (10/14/06) Estimated Body mass index is 34.69 kg/(m^2) as calculated from: Height of 5' 3.5 (1.613 m) as of 03/11/06 Weight of 199 lbs (90.266 kg) as of this encounter BP Completed using cuff size: large-left A MERRY Parrish T CULTURE MANAGER documented in this encounter Nursing Notes 08/07/2006 11:00 AM CST >> JUVENTINO BELTRAN 08/07/2006 11:05 am Gestational Age: 30w 2d documented in this encounter Plan of Treatment Not on filedocumented as of this encounter Procedures Procedure Name Priority Date/Time Associated Diagnosis Comme nts HCL OB SUGAR & Routine 08/07/2006 11:06 AM Supervis Other Resu lts for this ALBUMIN PLANT CULTURE MANAGER Normal Preg procedure are i n the results section. documented in this encounter Results OB SUGAR & ALBUMIN (08/07/2006 11:06 AM PLANT CULTURE MANAGER) P athologist Signature Protein Negative mg/dL [place] Albumin Urine [facility] Glucose Urine Negative mg/dL [facility] Specimen Anatomical Collection Method Collection Time Receive d Time (Source) Location / / Volume Laterality 08/07/2006 11:06 08/07/2006 AM PLANT CULTURE MANAGER 11:09 AM PLANT CULTURE MANAGER Romi Abreu MD LABORATORY Performing Organization Address City/State/ZIP Code Phon e Number [address] [address] [facility] documented in this encounter Visit Diagnoses Diagnosis Supervision of other normal - Primary documented in this encounter Care Teams Tumbler Machine Operator Helper Relationship Specialty Start Date End Date Vicki Mcgregor APRN BASIC ACOUSTIC ANALYST PCP - General 07/21/03 [address] [place] [address] documented as of this encounter
--- OUTSIDE RECORDS SUMMARY | 2022-06-12 19:11 | XMS_ITS | Encounter Summary ---
:1975 Author Organization [place] Address [address] [place] [address] Care Team Providers Name Role Phone Vicki Mcgregor YUE DRAW MACHINE OPERATOR Primary Care Provider [phone] Reason for Visit Reason Comments Blood Draw Encounter Details Date Type Department Care Team Description 05/01/2006 Orders Only [facility] Eag an SUPERVIS OTHER NORMAL PREG [address] (Primary Dx) [place] [address] Social History [...] Associated Diagnosis Comme nts GLUCOSE TOLERANCE Routine 05/01/2006 8:40 AM Supervis Other Re sults for this GEST.(3 HR.) COMMUNICATIONS ASSOCIATE Normal Preg procedure are i n the results section. documented in this encounter Results GLUCOSE TOLERANCE GEST.(3 HR.) (05/01/2006 8:40 AM COMMUNICATIONS ASSOCIATE) P athologist Signature Glucose Fasting 83 60 - 95 [place] [place] [place] 100 Grams mg/dL CLINIC [facility] Glucose 1 Hour 163 60 - 180 [place] 100 Grams mg/dL [facility] Glucose 2 Hour 145 60 - 155 [place] 100 Grams mg/dL CLINIC [facility] Glucose 3 Hour 129 60 - 140 [place] 100 Grams mg/dL [facility]IC [facility] Specimen Anatomical Collection Method Collection Time Receive d Time (Source) Location / / Volume Laterality 05/01/2006 8:40 AM 6 8:43 COMMUNICATIONS ASSOCIATE AM COMMUNICATIONS ASSOCIATE Romi Abreu MD LABORATORY Performing Organization Address City/State/ZIP Code Phon e Number [facility] [address] [place] [address] [facility] documented in this encounter Visit Diagnoses Diagnosis Supervision of other normal - Primary documented in this encounter Care Teams Manager Leadership Development Relationship Specialty Start Date End Date Vicki Mcgregor APRN CNP PCP - General 07/21/03 [address] [place] [address] documented as of this encounter
--- OUTSIDE RECORDS SUMMARY | 2022-06-12 19:11 | XMS_ITS | Encounter Summary ---
:1975 Author Organization [facility] Address [address] [place] [address] Care Team Providers Name Role Phone Vicki Mcgregor YUE STORE LEAD Primary Care Provider [phone] Reason for Visit Reason Comments Care Mother states baby is active . Mother states she has contractions at times. Encounter Details Date Type Department Care Team Description 05/15/2006 Office [facility] Romi Abreu OTHER Visit Paco Mohamud MD NORMAL PREG [facility] [employer] (Primary Dx) KENDY Antonio [address] [address] [facility] [address] [place] [phone] (Wo rk) Social History Tobacco Use Types Packs/Day Years Used Date Smoking Tobacco: Never Alcohol Use Standard Drinks/Week Comments No 0 (1 standard drink = 0.6 oz pure alcoho l) Sex Assigned at Date Recorded Not on file documented as of this encounter Last Filed Vital Signs Vital Sign Reading Time Taken Comments Blood Pressure 112/68 05/15/2006 11:00 AM PROFESSOR OF GEOGRAPHY Pulse 92 05/15/2006 11:00 AM PROFESSOR OF GEOGRAPHY Temperature - - Respiratory Rate - - Oxygen Saturation - - Inhaled Oxygen Concentration - - Weight 85.7 kg (189 lb) 05/15/2006 11:00 AM PROFESSOR OF GEOGRAPHY Height - - Body Mass Index 32.95 03/11/2006 10:30 AM CDT documented in this encounter Patient Instructions Patient InstructionsRomi Abreu MD - 05/15/2006 12:22 PM CST Bleeding, cramping precautions given, vitamin daily ESSOR OF GEOGRAPHY documented in this encounter Progress Notes Romi Abreu MD - 03/08/2010 4:45 PM CDT Doing well, denies bleeding, cramping. Has us scheduled for this week. Declines quad screen. ESSOR OF GEOGRAPHY documented in this encounter Nursing Notes 05/15/2006 11:00 AM CST >> MARYAM ANDRES 05/15/2006 10:58 am Audra Perez presents for Patient presents with: Care - Mother states baby is active. Mother states she has contractions at times. Initial BP 112/68 Pulse 92 Wt 189 lbs (85.7kg) LMP OB (10/14/06) BP completed using cuff size: regular nurse assisted visit. Maryam Andres ELECTRIC MOTOR ANALYST >> JUVENTINO BELTRAN 05/15/2006 10:52 am Gestational Age: 18w 2d documented in this encounter Plan of Treatment Not on filedocumented as of this encounter Procedures Procedure Name Priority Date/Time Associated Diagnosis Comme nts HCL OB SUGAR & Routine 05/15/2006 10:57 AM Supervis Other Resu lts for this ALBUMIN PROFESSOR OF GEOGRAPHY Normal Preg procedure are i n the results section. documented in this encounter Results OB SUGAR & ALBUMIN (05/15/2006 10:57 AM PROFESSOR OF GEOGRAPHY) P athologist Signature Protein Negative mg/dL [facility] Albumin Urine [facility] Glucose Urine Negative mg/dL [facility] Specimen Anatomical Collection Method Collection Time Receive d Time (Source) Location / / Volume Laterality 05/15/2006 10:57 05/15/2006 AM PROFESSOR OF GEOGRAPHY 11:00 AM PROFESSOR OF GEOGRAPHY Romi Abreu MD LABORATORY Performing Organization Address City/State/ZIP Code Phon e Number [facility] [address] [place] [address] [facility] documented in this encounter Visit Diagnoses Diagnosis Supervision of other normal - Primary documented in this encounter Care Teams Diesel Pile Hammer Operator Relationship Specialty Start Date End Date Vicki Mcgregor APRN STORE LEAD PCP - General 07/21/03 [address] [place] [address] documented as of this encounter
--- OUTSIDE RECORDS SUMMARY | 2022-06-12 19:11 | XMS_ITS | Encounter Summary ---
:1975 Author Organization [facility] Address [address] [place] [address] Care Team Providers Name Role Phone Vicki Mcgregor YUE BRIDGE CREW MEMBER Primary Care Provider [phone] Reason for Visit Reason Comments Care Mother states baby is active . Encounter Details Date Type Department Care Team Description 09/08/2006 Office [facility] Romi Abreu OTHER Visit Paco Mohamud MD NORMAL PREG 1440 [facility] [employer] (Primary Dx) KENDY [place] [address] [place] [address] [facility] [address] [place] [phone] (Wo rk) Social History Tobacco Use Types Packs/Day Years Used Date Smoking Tobacco: Never Alcohol Use Standard Drinks/Week Comments No 0 (1 standard drink = 0.6 oz pure alcoho l) Sex Assigned at Date Recorded Not on file documented as of this encounter Last Filed Vital Signs Vital Sign Reading Time Taken Comments Blood Pressure 124/80 09/08/2006 10:00 AM CDT Pulse 94 09/08/2006 10:00 AM CDT Temperature - - Respiratory Rate - - Oxygen Saturation - - Inhaled Oxygen Concentration - - Weight 92.5 kg (204 lb) 09/08/2006 10:00 AM CDT Height - - Body Mass Index 35.57 03/11/2006 10:30 AM CDT documented in this encounter Patient Instructions Patient InstructionsRomi Abreu MD - 09/08/2006 12:47 PM CDT Precautions for signs of labor, rupture of membranes, vaginal bleeding discussed, kickcounts reviewed. documented in this encounter Progress Notes Romi Abreu MD - 03/08/2010 4:45 PM CDT denies vaginal bleeding, contractions, loss of fluid; + movement reported. Olive Andres - 09/08/2006 10:08 AM CDT Gestational Age: 34w 6d Audra Perez presents for Chief Complaint Patient presents with ??? Care Mother states baby is active. Initial BP 124/80 Pulse 94 Wt 204 lbs (92.5kg) LMP OB (10/14/06) BP completed using cuff size: regular nurse assisted visit. Olive Andres CLOTH STOCK SORTER documented in this encounter Plan of Treatment Not on filedocumented as of this encounter Procedures Procedure Name Priority Date/Time Associated Comments Diagnosis HCL CULTURE, URINE Routine 09/08/2006 11:02 Supervis Other Res ults for this (MISYS) AM CDT Normal Preg procedure are i n the results section. HCL URINALYSIS WITH Routine 09/08/2006 11:02 Supervis Other Re sults for this MICROSCOPIC AM CDT Normal Preg procedure are i n the results section. HCL OB SUGAR & Routine 09/08/2006 10:14 Supervis Other Results for this ALBUMIN AM CDT Normal Preg procedure are i n the results section. documented in this encounter Results CULTURE, URINE (MISYS) (09/08/2006 11:02 AM CDT) [facility] Method Time Signature Specimen Midstream [place] Description Urine [facility] Culture Micro No growth [facility] Report status FINAL [place] [id number] [facility] Specimen Anatomical Collection Method Collection Time Receive d Time (Source) Location / / Volume Laterality 09/08/2006 11:02 09/08/2006 AM CDT 11:05 AM CDT Romi Abreu MD LABORATORY Performing Organization Address City/State/ZIP Code Phon e Number M [facility] [address] [address] [facility] (ABNORMAL) UA WITH MICRO (09/08/2006 11:02 AM CDT) Patholo gist Method Time Signature Color Urine Yellow [facility] Appearance Urine Clear [facility] Glucose Urine Negative NEG mg/dL [facility] Bilirubin Urine Negative NEG [facility] Ketones Urine Negative NEG mg/dL [facility] Specific [place] 1.025 1.003 - [place] Urine 1.035 [facility] pH Urine 7.5 (H) 5.0 - 7.0 [place] pH [facility] Protein Albumin Negative NEG mg/dL [place] Urine [facility] Urobilinogen 0.2 0.2 - 1.0 [place] Urine EU/dL [facility] Nitrite Urine Negative NEG [facility] Blood Urine Negative NEG [facility] Leukocyte Negative NEG [place] Esterase Urine [facility] Source Midstream [place] Urine [facility] WBC Urine O - 2 0 - 2 [place] /HPF [place]O [facility] RBC Urine O - 2 0 - 2 [place] /HPF [facility] Specimen Anatomical Collection Method Collection Time Receive d Time (Source) Location / / Volume Laterality 09/08/2006 11:02 09/08/2006 AM CDT 11:05 AM CDT Romi Abreu MD LABORATORY Performing Organization Address City/[facility]/ZIP Code Phon e Number [address] [phone] [facility] OB SUGAR & ALBUMIN (09/08/2006 10:14 AM CDT) P athologist Signature Protein Negative mg/dL [place] Albumin Urine [facility] Glucose Urine Negative mg/dL [facility] Specimen Anatomical Collection Method Collection Time Receive d Time (Source) Location / / Volume Laterality 09/08/2006 10:14 09/08/2006 AM CDT 10:16 AM CDT Romi Abreu MD LABORATORY Performing Organization Address City/[facility]/ZIP Code Phon e Number [facility] [address] [place] [address] [phone] [facility] documented in this encounter Visit Diagnoses Diagnosis Supervision of other normal - Primary documented in this encounter Care Teams High School Director Relationship Specialty Start Date End Date Vicki Mcgregor APRN CNP PCP - General 07/21/03 [address] [place] [address] documented as of this encounter
--- OUTSIDE RECORDS SUMMARY | 2022-06-12 19:11 | XMS_ITS | Encounter Summary ---
:1975 Author Organization [facility] Address [address] [place] [address] Care Team Providers Name Role Phone Vicki Mcgregor YUE AUTO BUMPER MECHANIC Primary Care Provider [phone] Reason for Visit Reason Comments Care Encounter Details Date Type Department Care Team Description 03/24/2006 Office [facility] Vandana Booth OTHER NORMAL PREG (Primary Dx); Visit Paco Mohamud MD SCREENING MAL NEOP-CERVIX; [facility] [place] SCREENING FOR VENERAL DIS; KENDY Antonio [address] [place] [facility] [phone] [place] [address] [place] [address] (Wo rk) Social History Tobacco Use Types Packs/Day Years Used Date Smoking Tobacco: Never Alcohol Use Standard Drinks/Week Comments No 0 (1 standard drink = 0.6 oz pure alcoho l) Sex Assigned at Date Recorded Not on file documented as of this encounter Last Filed Vital Signs Vital Sign Reading Time Taken Comments Blood Pressure 122/86 03/24/2006 9:30 AM CDT Pulse - - Temperature - - Respiratory Rate - - Oxygen Saturation - - Inhaled Oxygen Concentration - - Weight 85.3 kg (188 lb) 03/24/2006 9:30 AM CDT Height - - Body Mass Index 32.78 03/11/2006 10:30 AM CDT documented in this encounter Patient Instructions Patient InstructionsVandana Booth MD - 03/24/2006 10:25 AM CDT Bleeding, cramping precautions given, vitamin daily documented in this encounter Progress Notes Vandana Booth MD - 03/24/2006 10:07 AM CDT SUBJECTIVE: Audra Carvajal is an 30 year old female here for initial OB visit. Review of Systems: CONSTITUTIONAL:NEGATIVE for fever, chills, change in weight RESP:NEGATIVE for significant cough or SOB BREAST: NEGATIVE for masses, tenderness or discharge CV: NEGATIVE for chest pain, palpitations or peripheral edema GI: NEGATIVE abdominal pain, heartburn, or diarrhrea; does report constipation, has stool softeners,has not used yet : normal menstrual cycles, dysuria, frequency , vaginal discharge and bleeding History Since Last Menstrual Period: Nausea, better this week EXAM: Blood pressure 122/86, weight 188 lbs (85.3 kg), last menstrual period OB (10/14/06). GENERAL APPEARANCE: healthy, alert and no distress NECK: no adenopathy, no asymmetry, masses, or scars and thyroid normal to palpation RESP: lungs clear to auscultation - no rales, rhonchi or wheezes BREAST: normal without masses, tenderness or nipple discharge and no palpable axillary masses or adenopathy CV: regular rates and rhythm, normal S1 S2, no S3 or S4 and no murmur, click or rub - ABDOMEN: soft, nontender, no HSM or masses and bowel sounds normal Pelvix exam: Perineum: Intact and Normal; Vulva: Normal genitalia and Bartholins, Urethra, Sken'e normal; Vagina: Normal mucosa, Cervix: Parous, closed, mobile, no discharge; Uterus: 10 wks Adnexa: No masses, nodularity, tenderness; Rectum: Normal; Bony Pelvis: Adequate. ASSESSMENT/ PLAN: Follow up in 4 weeks. Normal exercise. Normal sexual activity. vitamins. Discussed with patient adequate hydration, fiber intake Work restrictions given. Discussed with patient cystic fibrosis testing, unsure at this time, testing information given Plan early glucola testing next visit Cierra Mercado - 03/24/2006 9:41 AM CDT Gestational Age: 10w 6d Audra Carvajal presents for a new exam. Initial BP 122/86 Wt 188 lbs (85.3kg) LMP OB (10/14/06) Estimated Body mass index is 32.78 kg/(m^2) as calculated from: Height of 5' 3.5 (1.613 m) as of 03/11/06 Weight of 188 lbs (85.276 kg) as of this encounter. BP completed using cuff size: regular Nurse assisted visit. Cierra HORAN documented in this encounter Nursing Notes 03/24/2006 9:30 AM CDT >> CIERRA MERCADO 03/24/2006 9:42 am Gestational Age: 10w 6d Audra Carvajal presents for a new exam. Initial BP 122/86 Wt 188 lbs (85.3kg) LMP OB (10/14/06) Estimated Body mass index is 32.78 kg/(m^2) as calculated from: Height of 5' 3.5 (1.613 m) as of 03/11/06 Weight of 188 lbs (85.276 kg) as of this encounter. BP completed using cuff size: regular Nurse assisted visit. Cierra HORAN documented in this encounter Plan of Treatment Not on filedocumented as of this encounter Procedures Procedure Name Priority Date/Time Associated Diagnosis Comme nts CL AFF Routine 03/24/2006 10:28 AM Screening For Results for this N.GONORRHOEAE, DNA CDT Veneral Dis procedure are in AMP PROBE the results section. CL AFF CHLMYD Routine 03/24/2006 10:28 AM Screening For Result s for this TRACH, DNA, AMP CDT Veneral Dis procedure ar e in PROBE the results section. HCL OB SUGAR & Routine 03/24/2006 10:07 AM Supervis Other Resu lts for this ALBUMIN CDT Normal Preg procedure are i n the results section. HCL PAP THIN LAYER Routine 03/24/2006 12:00 AM Screening Mal R esults for this SCREEN CDT Neop-Cervix procedure are i n the results section. documented in this encounter Results CHLMYD TRACH, DNA, AMP PROBE (03/24/2006 10:28 AM CDT) Component Value Ref Test Analysis Performed At [facility] Range Method Time Signature Specimen Vagina [facility] LABS Chlamydia Negative for C. trachomatis rRNA by transportation mechanic mediated amplification. [facility] Trachomatis A negative result by transc ription mediated amplification does not preclude the [place] PCR presence of C. trachomatis infection because results are dependent on proper CAMPUS LABS and adequate collection, absence of inhibitors, and suffici ent rRNA to be detected. Specimen Anatomical Collection Method Collection Time Receive d Time (Source) Location / / Volume Laterality 03/24/2006 10:28 03/24/2006 AM CDT 10:31 AM CDT Vandana Booth MD LABORATORY Performing Organization Address City/State/ZIP Code Phon e Number [address] LABS N.GONORRHOEAE, DNA, (GC) (03/24/2006 10:28 AM CDT) Component Value Ref Test Analysis Performed At [facility] Range Method Time Signature Specimen Vagina [facility] LABS N Gonorrhea Negative for N. gonorrhoeae rRNA by transportation mechanic mediated amplification. [facility] PCR A negative result by transc ription mediated amplification does not preclude the [place] presence of N. gonorrhoeae infection because re sults are dependent on proper CAMPUS LABS and adequate collection, absence of inhibitors, and suffici ent rRNA to be detected. Specimen Anatomical Collection Method Collection Time Receive d Time (Source) Location / / Volume Laterality 03/24/2006 10:28 03/24/2006 AM CDT 10:31 AM CDT Vandana Booth MD LABORATORY Performing Organization Address City/State/ZIP Code Phon e Number [phone] [place] [address] LABS OB SUGAR & ALBUMIN (03/24/2006 10:07 AM CDT) athologist Signature Protein Negative mg/dL [place] Albumin Urine [facility] Glucose Urine Negative mg/dL [facility] Specimen Anatomical Collection Method Collection Time Receive d Time (Source) Location / / Volume Laterality 03/24/2006 10:07 03/24/2006 AM CDT 10:10 AM CDT Vandana Booth MD LABORATORY Performing Organization Address City/State/ZIP Code Phon e Number [facility] [address] [place] [address] [facility] A THIN LAYER PAP SCREEN (03/24/2006 12:00 AM CDT) Component Value Ref Test Analysis Performed At [facility] Range Method Time Signature PAP NIL COPATH Copath Report COPATH Patient Name: AUDRA CARVAJAL MR#: [id number] Specimen #: [id number] Collected: 03/24/2006 Received: 03/25/2006 Reported: 03/27/2006 09:20 Ordering Phy(s): VANDANA BOOTH SPECIMEN/STAIN PROCESS: Pap thin layer prep screening ([facility]) ? Pap-Cyto x 1, Reflex HPV x 1 SOURCE: Cervical, endocervical ---- Pap thin layer prep screening ([facility]) SPECIMEN ADEQUACY: Satisfactory for evaluation. -Transformation zone component present. CYTOLOGIC INTERPRETATION: Negative for Intraepithelial Lesion or Malignancy ? Organism(s): -Shift in luke suggestive of bacterial vaginosis. Electronically signed out by: NARINDER Cross (ASCP) Processed and screened at [facility] CLINICAL HISTORY: LMP: 01/07/06 , Previous normal pap Date of Last Pap: 03/13/05, TESTING LAB LOCATION: [address] ??[phone] COLLECTION SITE: Client: ??[facility] Location: EAOB (R) Specimen (Source) Anatomical Collection Method Collection Time Re ceived Time Location / / Volume Laterality 03/24/2006 03/25/2006 3:09 PM CDT Vandana Booth MD LABORATORY Performing Organization Address City/State/ZIP Code Phon e Number [place] documented in this encounter Visit Diagnoses Diagnosis Supervision of other normal - Primary Screening for malignant neoplasm of the cervix Screening examination for venereal disea se Nausea alone documented in this encounter Care Teams Telegraph Service Rater Relationship Specialty Start Date End Date Vicki Mcgregor APRN AUTO BUMPER MECHANIC PCP - General 07/21/03 [address] [place] [address] documented as of this encounter
--- OUTSIDE RECORDS SUMMARY | 2022-06-12 19:11 | XMS_ITS | Encounter Summary ---
:1975 Author Organization [place] Address [address] [place] [address] Care Team Providers Name Role Phone Vicki Mcgregor YUE SUPERVISOR SLASHING DEPARTMENT Primary Care Provider [phone] Reason for Visit Reason Onset Date Comments Patient Request for Note/Letter 09/01/2006 Encounter Details Date Type Department Care Team Description 09/01/2006 Telephone [facility] Romi Abreu Request for Paco Mohamud MD Note/Letter [address] [facility] [employer] [facility] [address] [place] [phone] [address] (Wo rk) Social History Tobacco Use Types Packs/Day Years Used Date Smoking Tobacco: Never Alcohol Use Standard Drinks/Week Comments No 0 (1 standard drink = 0.6 oz pure alcoho l) Sex Assigned at Date Recorded Not on file documented as of this encounter Miscellaneous Notes Telephone Encounter - Juventino Beltran - 09/02/2006 5:18 PM CST Left message on answering machine that note is at front end loader driver to pick and shovel man. Amara Beltran RN ER MACHINE OPERATOR Telephone Encounter - Juventino Beltran - 09/02/2006 3:34 PM CST Phone line busy. Will try to contact pt later. Amara Beltran RN ER MACHINE OPERATOR Telephone Encounter - Juventino Beltran - 09/02/2006 8:23 AM CST Note is at front end loader driver for pick and shovel man. Tried to reach pt by phone-no answer and no machine to leave message. Amara Beltran RN ER MACHINE OPERATOR Telephone Encounter - Romi Abreu MD - 09/01/2006 5:47 PM CST Letter written, at nursing station D. Please contact patient for pick and shovel man. Thank you. ER MACHINE OPERATOR Telephone Encounter - Juventino Beltran - 09/01/2006 9:27 AM CST Gestational Age: 33w 6d ER MACHINE OPERATOR Telephone Encounter - Juventino Beltran - 09/01/2006 9:27 AM JIGGER MACHINE OPERATOR Staff Message copied by JUVENTINO BELTRAN on 09/01/2006 at 9:27 AM ------ Message from: GRACE DESAI Created: 09/01/2006 at 8:44 AM Regarding: Lois Abreu Crystal needs a note for work to only work 8 hrs in one day and if she needs to go home because of her back hurting because of standing so long she can do so. She needs it as soon as possible. [employer] is making her grocery department manager get a note from her doctor. Call her at [phone] when to pick note up. Thank you ER MACHINE OPERATOR documented in this encounter Plan of Treatment Not on filedocumented as of this encounter Visit Diagnoses Not on filedocumented in this encounter Care Teams Radar Systems Engineer Relationship Specialty Start Date End Date Vicki Mcgregor APRN SUPERVISOR SLASHING DEPARTMENT PCP - General 07/21/03 [address] [place] [address] documented as of this encounter
--- OUTSIDE RECORDS SUMMARY | 2022-06-12 19:11 | XMS_ITS | Encounter Summary ---
:1975 Author Organization [facility] Address [address] [place] [address] Care Team Providers Name Role Phone Vicki Mcgregor YUE TOOL ADJUSTER Primary Care Provider [phone] Reason for Visit Reason Comments Care Encounter Details Date Type Department Care Team Description 04/21/2006 Office [facility] Romi Abreu OTHER NORMAL PREG (Primary Dx); Visit Paco Mohamud MD OTHER ABNORMAL GLUCOSE [address] [facility] [address] [place] [id number] [facility] [id number] [facility] [address] [place] [id number] (Wo rk) Social History Tobacco Use Types Packs/Day Years Used Date Smoking Tobacco: Never Alcohol Use Standard Drinks/Week Comments No 0 (1 standard drink = 0.6 oz pure alcoho l) Sex Assigned at Date Recorded Not on file documented as of this encounter Last Filed Vital Signs Vital Sign Reading Time Taken Comments Blood Pressure 120/78 04/21/2006 9:00 AM CDT Pulse - - Temperature - - Respiratory Rate - - Oxygen Saturation - - Inhaled Oxygen Concentration - - Weight 84.8 kg (187 lb) 04/21/2006 9:00 AM CDT Height - - Body Mass Index 32.61 03/11/2006 10:30 AM CDT documented in this encounter Patient Instructions Patient InstructionsRomi Abreu MD - 04/21/2006 9:20 AM CDT Bleeding, cramping precautions given, vitamin daily documented in this encounter Progress Notes Romi Abreu MD - 03/08/2010 4:45 PM CDT Doing well; denies vaginal bleeding, cramping. Declines quad screen. Ninoska Rosado - 04/22/2006 11:20 AM CDT Addended by: NINOSKA ROSADO on: 04/22/2006 11:20:28 AM Modules accepted: Orders Cierra Mercado - 04/21/2006 9:04 AM CDT Gestational Age: 14w 6d Audra Perez presents for a follow up visit. Initial BP 120/78 Wt 187 lbs (84.8kg) LMP OB (10/14/06) Estimated Body mass index is 32.60 kg/(m^2) as calculated from: Height of 5' 3.5 (1.613 m) as of 03/11/06 Weight of 187 lbs (84.823 kg) as of this encounter. BP completed using cuff size: cassie Mercado AUNG documented in this encounter Nursing Notes 04/21/2006 9:00 AM CDT >> JUVENTINO BELTRAN 04/21/2006 9:15 am Injectable Influenza Immunization Documentation Form 1. Has the patient received the information for the influenza vaccine? YES 2. Does the patient have any of the following contraindications? Allergy to eggs? No Allergic reaction to previous influenza vaccines? No Paralyzed by Guillain-Woodacre syndrome? No Currently have moderate or severe illness? No Allergy to contact lens solution/thimerosol? No 3. The vaccine has been administered and the patient was instructed to wait 15 minutes before leaving the building in the event of an allergic reaction: YES Vaccination given by Amara Beltran RN >> CIERRA MERCADO 04/21/2006 9:05 am Gestational Age: 14w 6d Audra Perez presents for a follow up visit. Initial BP 120/78 Wt 187 lbs (84.8kg) LMP OB (10/14/06) Estimated Body mass index is 32.60 kg/(m^2) as calculated from: Height of 5' 3.5 (1.613 m) as of 03/11/06 Weight of 187 lbs (84.823 kg) as of this encounter. BP completed using cuff size: regular Cierra Mercado AUNG documented in this encounter Plan of Treatment Not on filedocumented as of this encounter Procedures Procedure Name Priority Date/Time Associated Comments Diagnosis HCL OB SUGAR & Routine 04/21/2006 9:08 AM Supervis Other Resul ts for this ALBUMIN CDT Normal Preg procedure are i n the results section. HCL OB HEMOGLOBIN Routine 04/21/2006 9:08 AM Supervis Other Re sults for this CDT Normal Preg procedure are i n the results section. HCL GLUCOSE; 1 HR Routine 04/21/2006 9:08 AM Supervis Other Re sults for this POST CDT Normal Preg procedure are i n the results section. documented in this encounter Results (ABNORMAL) GLUCOSE; 1 HR POST (04/21/2006 9:08 AM CDT) P athologist Signature Glu Gest 156 (H) 60 - 140 [place] Screen 1hr 50g mg/dL CLINIC LAB Specimen Anatomical Collection Method Collection Time Receive d Time (Source) Location / / Volume Laterality 04/21/2006 9:08 AM 6 9:11 CDT AM CDT Romi Abreu MD LABORATORY Performing Organization Address City/[facility]/ZIP Code Phon e Number [facility] [address] [place] [phone] [facility] OB SUGAR & ALBUMIN (04/21/2006 9:08 AM CDT) P athologist Signature Protein Negative mg/dL [place] Albumin Urine [facility] Glucose Urine Negative mg/dL [facility] Specimen Anatomical Collection Method Collection Time Receive d Time (Source) Location / / Volume Laterality 04/21/2006 9:08 AM 6 9:11 CDT AM CDT Romi Abreu MD LABORATORY Performing Organization Address City[facility]/ZIP Code Phon e Number [facility] [address] [place] [address] [phone] [facility] OB HEMOGLOBIN (04/21/2006 9:08 AM CDT) P athologist Signature Hemoglobin 12.5 11.7 - 15.7 [facility] g/dL CLINIC LAB Specimen Anatomical Collection Method Collection Time Receive d Time (Source) Location / / Volume Laterality 04/21/2006 9:08 AM 6 9:11 CDT AM CDT Romi Abreu MD LABORATORY Performing Organization Address City/State/ZIP Code Phon e Number [facility] [address] [place] [address] [phone] [facility] documented in this encounter Visit Diagnoses Diagnosis Supervision of other normal - Primary Other abnormal glucose documented in this encounter Care Teams Reimbursement Analyst Relationship Specialty Start Date End Date Vicki Mcgregor APRN TOOL ADJUSTER PCP - General 07/21/03 [address] [place] [address] documented as of this encounter
--- OUTSIDE RECORDS SUMMARY | 2022-06-12 19:11 | XMS_ITS | Encounter Summary ---
:1975 Author Organization [facility] Address [address] [place] [address] Care Team Providers Name Role Phone Vicki Mcgregor YUE DIRECTOR [employer] Primary Care Provider [phone] Reason for Visit Reason Comments Care Mother states baby is active . Patient is aware she is due for her group B strep with a diaper bag an d registration. Encounter Details Date Type Department Care Team Description 09/15/2006 Office [facility] Romi Abreu OTHER Visit Pac[place] Mohamud MD NORMAL PREG [address] [facility] 80/20 [employer] (Primary Dx) KENDY Antonio [address] [place] [id number] [address] [place], [place] [id number] (Wo rk) Social History Tobacco Use Types Packs/Day Years Used Date Smoking Tobacco: Never Alcohol Use Standard Drinks/Week Comments No 0 (1 standard drink = 0.6 oz pure alcoho l) Sex Assigned at Date Recorded Not on file documented as of this encounter Last Filed Vital Signs Vital Sign Reading Time Taken Comments Blood Pressure 120/80 09/15/2006 4:00 PM CDT Pulse 80 09/15/2006 4:00 PM CDT Temperature - - Respiratory Rate - - Oxygen Saturation - - Inhaled Oxygen Concentration - - Weight 93.4 kg (206 lb) 09/15/2006 4:00 PM CDT Height 161.3 cm (5' 3.5) 09/15/2006 4:00 PM CDT Body Mass Index 35.92 09/15/2006 4:00 PM CDT documented in this encounter Patient Instructions Patient InstructionsRomi Abreu MD - 09/16/2006 8:27 AM CDT Precautions for signs of labor, rupture of membranes, vaginal bleeding discussed, kickcounts reviewed. documented in this encounter Progress Notes Romi Abreu MD - 03/08/2010 4:45 PM CDT denies vaginal bleeding, contractions, loss of fluid; + movement reported. GBS done Olive Andres - 09/15/2006 4:13 PM CDT Gestational Age: 35w 6d Audra Perez presents for Chief Complaint Patient presents with ??? Care Mother states baby is active. Patient is aware she is due for her group B strep with a diaper bag and registration. Initial BP 120/80 Pulse 80 Ht 5' 3.5 (1.61m) Wt 206 lbs (93.4kg) LMP OB (10/14/06) BP completed using cuff size: regular nurse assisted visit. Olive Andres [employer] documented in this encounter Plan of Treatment Not on filedocumented as of this encounter Procedures Procedure Name Priority Date/Time Associated Diagnosis Comme nts HCL GROUP B STREP Routine 09/15/2006 4:52 PM Supervis Other Re sults for this PCR CDT Normal Preg procedure are i n the results section. HCL OB SUGAR & Routine 09/15/2006 4:13 PM Supervis Other Resul ts for this ALBUMIN CDT Normal Preg procedure are i n the results section. documented in this encounter Results GROUP B STREP PCR (09/15/2006 4:52 PM CDT) [facility] Method Time Signature Specimen Vaginal [facility] Description Rectal [facility] Group B Strep Negative: No GBS DNA detecte d, presumed negative for GBS or number of bacteria [facility] PCR may be below the limit of detection of the assay. AUBURN Assay performed on incubated broth culture of specimen [facility] SmartCycler(R) real-time PCR. Specimen Anatomical Collection Method Collection Time Receive d Time (Source) Location / / Volume Laterality 09/15/2006 4:52 PM 7 4:54 CDT PM CDT Romi Abreu MD LABORATORY Performing Organization Address City/State/ZIP Code Phon e Number [facility] [address] [place] [address] [facility] OB SUGAR & ALBUMIN (09/15/2006 4:13 PM CDT) P athologist Signature Protein Trace mg/dL [place] Albumin Urine [facility] Glucose Urine Negative mg/dL [facility] Specimen Anatomical Collection Method Collection Time Receive d Time (Source) Location / / Volume Laterality 09/15/2006 4:13 PM 7 4:15 CDT PM CDT Romi Abreu MD LABORATORY Performing Organization Address City/State/ZIP Code Phon e Number [facility] [address] [place] [phone] [facility] documented in this encounter Visit Diagnoses Diagnosis Supervision of other normal - Primary documented in this encounter Care Teams Laundromat Worker Relationship Specialty Start Date End Date Vicki Mcgregor APRN DIRECTOR [employer] PCP - General 07/21/03 [address] [place] [address] documented as of this encounter
--- OUTSIDE RECORDS SUMMARY | 2022-06-12 19:11 | XMS_ITS | Encounter Summary ---
:1975 Author Organization [facility] Address [address] [place] [address] Care Team Providers Name Role Phone Vicki Mcgregor YUE WIRE STRANDER Primary Care Provider Reason for Visit Reason Comments Dental Pain Encounter Details Date Type Department Care Team Description 12/26/2015 Emergency [facility] Mac Ragland, dental; Chi Haynes MD Temporomandibular joint pain Dept [facility] [address] [place] [address] [employer] [id number] [place] [address] [place] [address] (Wo rk) Social History Tobacco Use Types Packs/Day Years Used Date Smoking Tobacco: Never Alcohol Use Standard Drinks/Week Comments No 0 (1 standard drink = 0.6 oz pure alcoho l) Sex Assigned at Date Recorded Not on file documented as of this encounter Last Filed Vital Signs Vital Sign Reading Time Taken Comments Blood Pressure 147/92 12/26/2015 5:24 PM CDT Pulse 74 12/26/2015 5:24 PM CDT Temperature 36.8 ??C (98.2 ??F) 12/26/2015 5:24 PM CDT Respiratory Rate 18 12/26/2015 5:24 PM CDT Oxygen Saturation 100% 12/26/2015 5:24 PM CDT Inhaled Oxygen Concentration - - Weight - - Height - - Body Mass Index - - documented in this encounter Discharge Instructions Discharge InstructionsMac Ragland MD - 12/26/2015 5:52 PM CDT Discharge Instructions Dental Pain You have been seen today for a toothache. Your pain may be caused by an exposed nerve, an infection (pulpitis), a root abscess, or other problems. You will need to see a dentist for a solution to your tooth problem. Emergency Department care is only to help control your problem until you can see a dentist. Today, we did not find any sign that your toothache was caused by a serious condition, but sometimes symptoms develop over time and cannot be found during an emergency visit, so it is very important that you follow up with your dentist. Return to the Emergency Department if: ??? You develop a fever over 101 degrees Fahrenheit. ??? You can???t open your mouth normally, can???t move your tongue well, or can???t swallow. ??? You have new or increased swelling of your face or neck. ??? You develop drainage of pus or foul smelling material from around your tooth. What can I do to help myself? Take any antibiotic the doctor may have prescribed for you today. ??? Avoid very hot or very cold foods as both can cause pain. ??? Make an appointment to see a dentist as soon as possible. If you wish, we can provide you with alist of low-cost dental clinics. If you were given a prescription for [...] call or return to the Emergency Department. Opioid Medication Information Pain medications are among the most commonly prescribed medicines, so we are including this information for all our patients. If you did not receive pain medication or get a prescription for pain medicine, you can ignore it. You may have been given a prescription for an opioid (narcotic) pain medicine and/or have received apain medicine while here in the Emergency Department. These medicines can make you drowsy or impaired. You must not drive, operate dangerous equipment, or engage in any other dangerous activities whiletaking these medications. If you drive while taking these medications, you could be arrested for DUI, or driving under the influence. Do not drink any alcohol while you are taking these medications. Opioid pain medications can cause addiction. If you have a history of chemical dependency of any type, you are at a higher risk of becoming addicted to pain medications. Only take these prescribed medications to treat your pain when all other options have been tried. Take it for as short a time and asfew doses as possible. Store your pain pills in a secure place, as they are frequently stolen and provide a dangerous opportunity for children or visitors in your house to start abusing these powerful medications. We will not replace any lost or stolen medicine. As soon as your pain is better, you should flush all your remaining medication. Many prescription pain medications contain Tylenol?? (acetaminophen), including Vicodin??, Tylenol #3??, Stewart??, Lortab??, and Percocet??. You should not take any extra pills of Tylenol?? if you are using these prescription medications or you can get very sick. Do not ever take more than 3000 mg of acetaminophen in any 24 hour period. All opioids tend to cause constipation. Drink plenty of water and eat foods that have a lot of fiber, such as fruits, vegetables, prune juice, apple juice and high fiber cereal. Take a laxative if you don???t move your bowels at least every other day. Miralax??, Milk of Magnesia, Colace??, or Senna?? can be used to keep you regular. Remember that you can always come back to the Emergency Department if you are not able to see your regular doctor in the amount of time listed above, if you get any new symptoms, or if there is anything that worries you. documented in this encounter Medications at Time of Discharge Medication Sig Dispensed Refills Start Date End Date amoxicillin-clavulanate Take 1 tablet by 20 tablet 0 201501/05/2016 (AUGMENTIN) 875-125 MG mouth 2 times daily per tablet for 10 days traMADol (ULTRAM) 50 MG Take 1-2 tablets 20 tablet 0 201505/15/2017 tablet (50-100 mg) by mouth every 6 hours as needed for moderate pain documented as of this encounter ED Notes Mac Ragland MD - 12/26/2015 5:37 PM CDT History Chief Complaint: Dental pain HPI Audra Perez is a 40 year old female who presents with dental pain. The patient states she has been experiencing left sided dental pain for one week. She states she has two broken teeth, one on thetop and one on the bottom, on the left side of her mouth. The patient also states she has been experiencing bad headaches in her latter-day and where her jaw connects on her left side as well as left sided facial swelling in the morning. She reports to the ED for evaluation of continued pain. Here, the patient states she has also noticed sinus congestion. She also reports she has been taking slightly more than the recommended dose of Aleve the last two days for pain control. She denies any fever or chills. She denies any nausea, vomiting, or diarrhea. She denies any cough. Allergies: No known drug allergies Medications: The patient is currently on no regular medications. Past Medical History: The patient does not have any past pertinent medical history. Past Surgical History: Chappells teeth removal Family History: Emphysema, cancer, COPD, heart murmur Social History: Smoking status: Never Alcohol use: No Marital Status: Single Review of Systems Constitutional: Negative for fever and chills. HENT: Positive for congestion and dental problem. Respiratory: Negative for cough. Gastrointestinal: Negative for nausea, vomiting and diarrhea. Neurological: Positive for headaches. All other systems reviewed and are negative. Physical Exam First Vitals: BP: (!) 147/92 mmHg Pulse: 74 Temp: 98.2 ??F (36.8 ??C) Resp: 18 SpO2: 100 % Physical Exam Constitutional: Appears well-developed and well-nourished. Alert. Conversant. Non toxic. HENT: Head: Atraumatic. No depressed skull fracture, Racoon Eyes, Nava's sign, or hemotympanum. Face normal. TMs normal. Has left TMJ pain, but no swelling, erythema or click. No temporal swelling or nodularity. No cheek swelling or erythema. Nose: Nose normal. Mouth/Throat: Oral mucosa is clear and moist. tongue normal. no trismus. Pharynx normal. Tonsils symmetric. No tonsillar enlargement, erythema, or exudate. Several teeth with carries and teeth #15 is eroded to the gums. Also dental carries of lower left molar (#18). There is slight swelling/erythema of the gums on her left maxilla, but no tenderness. No palpable abscess. Eyes: Conjunctivae normal. EOM normal. Pupils equal, round, and reactive to light. No scleral icterus. Neck: Normal range of motion. Neck supple. No tracheal deviation present. Cardiovascular: Normal rate, regular rhythm. No gallop. No friction rub. No murmur heard. Symmetric radial artery pulses Pulmonary/Chest: Effort normal. No stridor. No respiratory distress. No wheezes. No rales. No rhonchi Musculoskeletal: Normal range of motion. No edema. No tenderness. No deformity Lymph: No cervical adenopathy. Neurological: Alert and oriented to person, place, and time. Normal strength. CN II-VII intact. No sensory deficit. GCS eye subscore is 4. GCS verbal subscore is 5. GCS motor subscore is 6. Normal coordination Skin: Skin is warm and dry. No rash noted. No pallor. Normal capillary refill. Psychiatric: Normal mood. Normal affect. Emergency Department Course Emergency Department Course: Past medical records, nursing notes, and vitals reviewed. 1736: I performed an exam of the patient and obtained history, as documented above. 1804: I rechecked the patient. Findings and plan explained to the Patient. Patient discharged home with instructions regarding supportive care, medications, and reasons to return. The importance of close follow-up was reviewed. Impression & Plan Medical Decision Making: Audra Perez is a 40 year old female presents with pain on the left side of her face, including her left upper tooth, left cheek, left TMJ, left latter-day and, at times, left ear. She has a h/o dentalcarries and has been meaning to see a dentist for some time, but has been unable. Her pain started about a week ago, and has been progressing over the past couple of days. She was unable to get into a dentist today. I suspect she may have a pulpitis/ dental infection causing her symptoms. There is no abscess detected around the tooth amenable to incision and drainage. The differential diagnosis includes: cracked tooth syndrome, pulpitis, sub-apical abscess, as well as left maxillary sinusitis, left TMJ syndrome. I don't see a facial cellulitis. Age too young for temporal arteritis. No sudden onset to suggest carotid dissection or SAH. There is no evidence of buccinator/canine space infections, significant facial swelling, or Chris's angina. There are no posterior pharyngeal space infections detected. Follow up with a dentist/account services coordinator in the coming days is indicated for further work up and treatment. Instructions for return to the ER were reviewed with the patient. Diagnosis: ICD-10-CM 1. Pain, dental K08.8 2. Temporomandibular joint pain M26.62 Discharge Medication List as of 12/26/2015 6:00 PM START taking these medications Details amoxicillin-clavulanate (AUGMENTIN) 875-125 MG per tablet Take 1 tablet by mouth 2 times daily for 10 days, Disp-20 tablet, R-0, Local Print traMADol (ULTRAM) 50 MG tablet Take 1-2 tablets (50-100 mg) by mouth every 6 hours as needed for moderate pain, Disp-20 tablet, R-0, Local Print Ivis Barber 12/26/2015 [facility] EM[facility] I, Ivis Hernandez, am serving as a scribe at 5:37 PM on 12/26/2015 to document services personally performed by Mac Ragland, based on my observations and the provider's statements to me. Mac Ragland MD 12/28/152228 Milagros Millard RN - 12/26/2015 5:24 PM CDT Patient presents to the ED with left upper dental pain x 1 week. documented in this encounter Plan of Treatment Not on filedocumented as of this encounter Visit Diagnoses Diagnosis Pain, dental Unspecified disorder of the teeth and doherty pporting structures Temporomandibular joint pain Arthralgia of temporomandibular joint documented in this encounter Care Teams Pelletizer Tender Relationship Specialty Start Date End Date Vicki Mcgregor APRN WIRE STRANDER PCP - General 07/21/03 [address] [place] [address] documented as of this encounter
--- OUTSIDE RECORDS SUMMARY | 2022-06-12 19:11 | XMS_ITS | Encounter Summary ---
:1975 Author Organization [facility] Address [address] [place] [address] Care Team Providers Name Role Phone Vicki Mcgregor YUE METER INSTALLER AND REMOVER Primary Care Provider [phone] Encounter Details Date Type Department Care Team Description 10/07/2006 Historic Results [facility] Women's Card, Bridget Langley, [facility] [address] [place] [address] Social History Tobacco Use Types Packs/Day Years Used Date Smoking Tobacco: Never Alcohol Use Standard Drinks/Week Comments No 0 (1 standard drink = 0.6 oz pure alcoho l) Sex Assigned at Date Recorded Not on file documented as of this encounter Plan of Treatment Not on filedocumented as of this encounter Procedures Procedure Name Priority Date/Time Associated Comments Diagnosis ROUTINE UA WITH Routine 10/07/2006 8:00 PM Result s for this MICROSCOPIC CDT procedure are i n the results section. URINE CULTURE Routine 10/07/2006 8:00 PM Results for this CDT procedure are i n the results section. documented in this encounter Results (ABNORMAL) Routine UA with microscopic (10/07/2006 8:00 PM CDT) Component Value Ref Test Analysis Performed At [facility] Range Method Time Signature Source Unspecified MISYS Urine Color Urine Yellow MISYS Appearance Urine Slightly Cloudy MISYS Glucose Urine Negative NEG MISYS mg/dL Bilirubin Urine Negative NEG MISYS Ketones Urine 5 (A) NEG MISYS mg/dL Specific Indian 1.027 1.003 - MISYS Urine 1.035 Blood Urine Negative NEG MISYS pH Urine 6.0 5.0 - MISYS 7.0 pH Protein Albumin 30 (A) NEG MISYS Urine mg/dL Urobilinogen Normal 0.0 - MISYS mg/dL 2.0 mg/dL Nitrite Urine Negative NEG MISYS Leukocyte Trace (A) NEG MISYS Esterase Urine WBC Urine 9 (H) 0 - 2 MISYS /HPF RBC Urine 1 0 - 2 MISYS /HPF Squamous 14 (H) 0 - 1 MISYS Epithelial /HPF /HPF Urine Transitional Epi 1 0 - 1 MISYS /HPF Bacteria Urine Moderate (A) NEG /HPF MISYS Mucous Urine Present (A) NEG /LPF MISYS Specimen Anatomical Collection Method Collection Time Receive d Time (Source) Location / / Volume Laterality 10/07/2006 8:00 PM 7 8:15 CDT PM CDT Boubacar Card MD LAB - URINE ORDERABLES Performing Organization Address City/[facility]/ZIP Code Phon e Number MISYS Urine culture (10/07/2006 8:00 PM CDT) [facility] gist Method Time Signature Specimen Unspecified MISYS Description Urine Culture Micro No growth MISYS Micro Report FINAL [id number] MISYS Status Specimen Anatomical Collection Method Collection Time Receive d Time (Source) Location / / Volume Laterality 10/07/2006 8:00 PM 7 8:26 CDT PM CDT Boubacar Card MD LAB - MICRO GENERAL ORDERABL ES Performing Organization Address City/[facility]/ZIP [facility] Phon e Number MISYS documented in this encounter Visit Diagnoses Not on filedocumented in this encounter Care Teams V Belt Curer Relationship Specialty Start Date End Date Vicki Mcgregor APRN METER INSTALLER AND REMOVER PCP - General 07/21/03 [address] [place] [address] documented as of this encounter
--- OUTSIDE RECORDS SUMMARY | 2022-06-12 19:11 | XMS_ITS | Encounter Summary ---
:1975 Author Organization [facility] Address [address] [place] [address] Care Team Providers Name Role Phone Vicki Mcgregor APRN [facility] Primary Care Provider Reason for Referral - Closed Specialty Diagnoses / Procedures Referred By Contact Refer red To Contact Diagnoses Ganglion, unspecified Vicki Mcgregor APRN CNP [address] [address] [id number] Referral ID Status Reason Start Date Expiration Date Visits Requ ested Visits Authorized [id number] Closed 04/17/2006 06/29/2011 1 1 Reason for Visit Reason Comments Elbow Pain Headache Sx x 3 days Encounter Details Date Type Department Care Team Description 04/17/2006 Office Visit [facility] Vicki Mcgregor GANGLI ON NOS; Paco TURNER CNP ACUTE MAXILLARY SINUSITIS [address] [facility] [address] [address] [address] [address] [phone] KENDY DIAZ [address] (Wo rk) Social History Tobacco Use Types Packs/Day Years Used Date Smoking Tobacco: Never Alcohol Use Standard Drinks/Week Comments No 0 (1 standard drink = 0.6 oz pure alcoho l) Sex Assigned at Date Recorded Not on file documented as of this encounter Last Filed Vital Signs Vital Sign Reading Time Taken Comments Blood Pressure 112/68 04/17/2006 12:45 PM CDT Pulse 80 04/17/2006 12:45 PM CDT Temperature - - Respiratory Rate - - Oxygen Saturation - - Inhaled Oxygen Concentration - - Weight 87.1 kg (192 lb) 04/17/2006 12:45 PM CDT Height - - Body Mass Index 33.48 03/11/2006 10:30 AM CDT documented in this encounter Progress Notes Vicki Mcgregor - 04/17/2006 12:56 PM CDT Audra Perez presents for right elbow x 2-3 months, feels something moving inside. Has a mass that is mobile and is painful when pressure is on it. No recent or remote history of of injury to explain symptoms. No limitation of range of motion and no redness or increased warmth. Also headache x 3 days, she has not been feeling well. Pt is approx 14 weeks . Has had intermittant sinus symptoms that recurr for the last 6 weeks. No fever or chills. Has green nasal drainage and sinus pain in maxillary area. No cough or shortness of breath. Initial Wt 192 lbs (87.1kg) LMP OB (10/14/06) Estimated Body mass index is 33.47 kg/(m^2) as calculated from: Height of 5' 3.5 (1.613 m) as of 03/11/06 Weight of 192 lbs (87.091 kg) as of this encounter. BP completed using cuff size: bryan Packer M.A/ Vicki Mcgregor C.N.P. . Past Medical History Diagnosis Date ??? NO ACTIVE PROBLEMS Past Surgical History Procedure Date ??? Surgical history of - wisdom teeth removal Allergies Allergen Reactions ??? No Known Drug Allergies ??? Insect Extract Rash Caterpillars History Substance Use Topics ??? Tobacco Use: Never ??? Alcohol Use: No Current outpatient prescriptions Medication Sig ??? PHENERGAN 25 MG OR TABS 1 TABLET EVERY 4 TO 6 HOURS NEEDED ??? VITAMIN TABS OR 1 TABLET DAILY O: BP 112/68 Pulse 80 Wt 192 lbs (87.1kg) LMP OB (10/14/06) Appears mildly fatiuged TM-- no acute infection or effusion OP: without significant erythema or exudates. Neck: supple without adenopathy Lungs: Clear Cardiac. Regular. No murmur. Nasal mucosa very edematous and erythematous. Elbow exam - right normal, full range of motion, bursal effusion,, no tenderness of epicondyles. 7 mm mobile mass, no surface changes. consistent with ganglion cyst,. A/P: 727.43 GANGLION NOS Note: Plan: to ortho 461.0 ACUTE MAXILLARY SINUSITIS Note: Plan: amox and follow up prn documented in this encounter Plan of Treatment Not on filedocumented as of this encounter Visit Diagnoses Diagnosis Ganglion, unspecified Acute maxillary sinusitis documented in this encounter Care Teams Chemist Organic Relationship Specialty Start Date End Date Vicki Mcgregor, INFORMATION RESOURCE CONSULTANT EQUIPMENT SERVICES ASSOCIATE PCP - General 07/21/03 [address] [place] [address] documented as of this encounter
--- OUTSIDE RECORDS SUMMARY | 2022-06-12 19:11 | XMS_ITS | Encounter Summary ---
:1975 Author Organization [facility] Address [address] [place] [address] Care Team Providers Name Role Phone Vicki Mcgregor YUE FINANCIAL AID COUNSELOR Primary Care Provider [phone] Reason for Visit Reason Onset Date Comments Care 09/24/2006 edema in lower extr emities Encounter Details Date Type Department Care Team Description 09/24/2006 Telephone [facility] Romi Abreu or Care ( edema Paco Mohamud MD in lower extremities) [address] [facility] [employer] [place] [address] [facility]9 [place] [phone] [address] (Wo rk) Social History Tobacco Use Types Packs/Day Years Used Date Smoking Tobacco: Never Alcohol Use Standard Drinks/Week Comments No 0 (1 standard drink = 0.6 oz pure alcoho l) Sex Assigned at Date Recorded Not on file documented as of this encounter Miscellaneous Notes Telephone Encounter - Lizzie Brandon - 09/24/2006 10:56 AM CDT Pt is 37 weeks PG and has concerns regarding edema in lower extremities. Edema has increased significantly since last night after work and again today, pt states her ankles are huge with some tightnessand very uncomfortable. 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 Pt has appt scheduled for 09/25/[address] Dr Abreu pagefermín, advised to evaluate for the following symptoms and if OK, should be seen as scheduled 09/25/06. Pt has no SOB, no BRIDGES, no visual changes, no significant difference in edema in right and left lower extremity, no upper abd pain. Pt WCB with anychanges in symptoms or further concerns. Deniz Brandon RN documented in this encounter Plan of Treatment Not on filedocumented as of this encounter Visit Diagnoses Not on filedocumented in this encounter Care Teams Apprenticeship Training Representative Relationship Specialty Start Date End Date Vicki Mcgregor APRN FINANCIAL AID COUNSELOR PCP - General 07/21/03 [address] [place] [address] documented as of this encounter
--- OUTSIDE RECORDS SUMMARY | 2022-06-12 19:11 | XMS_ITS | Encounter Summary ---
:1975 Author Organization [facility] Address [address] [place] [address] Care Team Providers Name Role Phone Vicki Mcgregor YUE OUTREACH SPECIALIST Primary Care Provider [phone] Reason for Visit Reason Comments Care Mother states baby is active . Encounter Details Date Type Department Care Team Description 06/19/2006 Office [facility] Romi Abreu OTHER Visit Paco Mohamud MD NORMAL PREG 1440 [facility] (Primary Dx) KENDY Antonio [address] [place] [address] [facility] [address] [id number] (Wo rk) Social History Tobacco Use Types Packs/Day Years Used Date Smoking Tobacco: Never Alcohol Use Standard Drinks/Week Comments No 0 (1 standard drink = 0.6 oz pure alcoho l) Sex Assigned at Date Recorded Not on file documented as of this encounter Last Filed Vital Signs Vital Sign Reading Time Taken Comments Blood Pressure 96/66 06/19/2006 4:00 PM VETERINARY PRACTITIONER Pulse 82 06/19/2006 4:00 PM VETERINARY PRACTITIONER Temperature - - Respiratory Rate - - Oxygen Saturation - - Inhaled Oxygen Concentration - - Weight 87.5 kg (193 lb) 06/19/2006 4:00 PM VETERINARY PRACTITIONER Height - - Body Mass Index 33.65 03/11/2006 10:30 AM CDT documented in this encounter Patient Instructions Patient InstructionsRomi Abreu MD - 06/24/2006 8:41 AM CST Bleeding, cramping precautions given, vitamin daily RINARY PRACTITIONER documented in this encounter Progress Notes Romi Abreu MD - 03/08/2010 4:45 PM CDT Denies bleeding, cramping. RINARY PRACTITIONER documented in this encounter Nursing Notes 06/19/2006 4:00 PM CST >> MARYAM BLANK 06/19/2006 4:03 pm Gestational Age: 23w 2d Crystal D Chris presents for Patient presents with: Care - Mother states baby is active. Initial BP 96/66 Pulse 82 Wt 193 lbs (87.5kg) LMP OB (10/14/06) BP completed using cuff size: regular nurse assisted visit. Maryam Dmitry OPTOMECHANICAL ENGINEER documented in this encounter Plan of Treatment Not on filedocumented as of this encounter Procedures Procedure Name Priority Date/Time Associated Diagnosis Comme nts HCL OB SUGAR & Routine 06/19/2006 4:00 PM Supervis Other Resul ts for this ALBUMIN VETERINARY PRACTITIONER Normal Preg procedure are i n the results section. documented in this encounter Results OB SUGAR & ALBUMIN (06/19/2006 4:00 PM VETERINARY PRACTITIONER) P athologist Signature Protein Negative mg/dL [place] Albumin Urine [facility] Glucose Urine Negative mg/dL [facility] Specimen Anatomical Collection Method Collection Time Receive d Time (Source) Location / / Volume Laterality 06/19/2006 4:00 PM 6 4:03 VETERINARY PRACTITIONER PM VETERINARY PRACTITIONER Romi Abreu MD LABORATORY Performing Organization Address City/State/ZIP Code Phon e Number [facility] [address] [place] [address] [facility] documented in this encounter Visit Diagnoses Diagnosis Supervision of other normal - Primary documented in this encounter Care Teams Tool Worker Relationship Specialty Start Date End Date Vicki Mcgregor APRN OUTREACH SPECIALIST PCP - General 07/21/03 [address] [place] [address] documented as of this encounter
--- OUTSIDE RECORDS SUMMARY | 2022-06-12 19:11 | XMS_ITS | Encounter Summary ---
:1975 Author Organization [facility] Address [address] [place] [address] Care Team Providers Name Role Phone Vicki Mcgregor YUE FURNACE COMBUSTION TESTER Primary Care Provider [phone] Reason for Visit Reason Onset Date Comments Care 10/16/2006 Induction scheduled Encounter Details Date Type Department Care Team Description 10/16/2006 Telephone [facility] Romi Abreu [facility] Paco Mohamud MD (Induction scheduled) [address] [place] [address] [place] [address] [place] [address] [address] (Wo rk) Social History Tobacco Use Types Packs/Day Years Used Date Smoking Tobacco: Never Alcohol Use Standard Drinks/Week Comments No 0 (1 standard drink = 0.6 oz pure alcoho l) Sex Assigned at Date Recorded Not on file documented as of this encounter Miscellaneous Notes Telephone Encounter - Gracie Rich - 10/16/2006 3:24 PM CDT Notified pt. Amara Rich RN Telephone Encounter - Gracie Rich - 10/16/2006 1:18 PM CDT Left message for pt. to call back. ADRIANA Banuelos Patient scheduled for Induction of Labor at [facility] L & D department. Date: 10/21/06. Patient needs to call L & D at [phone] at 6:30am that morning to verify scheduled appt. Order faxed to L & D. Date placed on OB calendar. Amara Rich RN documented in this encounter Plan of Treatment Not on filedocumented as of this encounter Visit Diagnoses Not on filedocumented in this encounter Care Teams Adobe Developer Relationship Specialty Start Date End Date Vicki Mcgregor APRN CNP PCP - General 07/21/03 [address] [place] [address] documented as of this encounter
--- OUTSIDE RECORDS SUMMARY | 2022-06-12 19:11 | XMS_ITS | Encounter Summary ---
:1975 Author Organization [facility] Address [address] [place] [address] Care Team Providers Name Role Phone Vicki Mcgregor YUE TUBE AND ROD STRAIGHTENER Primary Care Provider [phone] Encounter Details Date Type Department Care Team Description 10/06/2006 [facility] [address] [facility] [address] [place], [place] [address] [phone] Social History Tobacco Use Types Packs/Day Years Used Date Smoking Tobacco: Never Alcohol Use Standard Drinks/Week Comments No 0 (1 standard drink = 0.6 oz pure alcoho l) Sex Assigned at Date Recorded Not on file documented as of this encounter Plan of Treatment Not on filedocumented as of this encounter Procedures Procedure Name Priority Date/Time Associated Diagnosis Comme nts RUPTURE OF Routine 10/06/2006 1:32 PM Results f or this MEMBRANES BY CDT procedure are i n AMNISURE the results section. documented in this encounter Results Rupture of membranes by Amnisure (10/06/2006 1:32 PM CDT) P athologist Signature Amnisure Negative NEG MISYS Specimen Anatomical Collection Method Collection Time Receive d Time (Source) Location / / Volume Laterality 10/06/2006 1:32 PM 7 2:00 CDT PM CDT Romi Abreu MD LAB - BODY FLUIDS ORDERABLES Performing Organization Address City/State/ZIP Code Phon e Number MISYS documented in this encounter Visit Diagnoses Not on filedocumented in this encounter Care Teams Wood Floor Refinisher Relationship Specialty Start Date End Date Vicki Mcgregor APRN TUBE AND ROD STRAIGHTENER PCP - General 07/21/03 [address] [place] [address] documented as of this encounter
--- OUTSIDE RECORDS SUMMARY | 2022-06-12 19:12 | XMS_ITS | Encounter Summary ---
:1975 Author Organization [facility] Address [address] [place] [address] Care Team Providers Name Role Phone Vicki Mcgregor APRN, CNP Primary Care Provider [phone] Reason for Visit Reason Comments Imm/Inj Encounter Details Date Type Department Care Team Description 04/11/2004 [facility] Imm/Inj Visit 14[address] [place] [address] Social History Tobacco Use Types Packs/Day Years Used Date Smoking Tobacco: Never Alcohol Use Standard Drinks/Week Comments No 0 (1 standard drink = 0.6 oz pure alcoho l) Sex Assigned at Date Recorded Not on file documented as of this encounter Progress Notes 04/11/2004 1:30 PM CDT The following medication was given: MEDICATION: Depo Provera 150mg ROUTE: IM SITE: Deltoid - Left LOT #: [id number] Supervisor Powdered Sugar: [employer] EXPIRATION DATE: 08/2007 MERRY Parsons documented in this encounter Plan of Treatment Not on filedocumented as of this encounter Visit Diagnoses Diagnosis Unspecified contraceptive management documented in this encounter Care Teams Pattern Filer Relationship Specialty Start Date End Date Vicki Mcgregor APRN CNP PCP - General 07/21/03 [address] [place] [address] documented as of this encounter
--- OUTSIDE RECORDS SUMMARY | 2022-06-12 19:12 | XMS_ITS | Encounter Summary ---
:1975 Author Organization [facility] Address [address] [place] [address] Care Team Providers Name Role Phone MecheNicaVicki INSOLVENCY PRACTITIONER NUCLEAR CARDIOLOGY TECHNOLOGIST Primary Care Provider [phone] Encounter Details Date Type Department Care Team Description 12/30/2002 [facility] an Vicki Mcgregor, EMERGENCY ROOM 14[address] [facility] INSOLVENCY PRACTITIONER [facility] ENCOUNTER (Primary Dx) [place] [address] [place] [phone] [place], [place] [address] (Wo rk) Social History Tobacco Use Types Packs/Day Years Used Date Smoking Tobacco: Never Alcohol Use Standard Drinks/Week Comments No 0 (1 standard drink = 0.6 oz pure alcoho l) Sex Assigned at Date Recorded Not on file documented as of this encounter Progress Notes 12/30/2002 11:59 PM CDT 00:00 Emergency Department Encounter-JAY RAMIREZ) [Entered: Transcript ion (HIM)] : 77 CHIEF COMPLAINT: Right facial pain. HISTORY OF PRESENT ILLNESS: This i s a 27 yo female with right ear and jaw line pain. It's been going on now intermittently for about 3 weeks. She feels like her ear gets plugged at times, but then she feels it along her jaw or if she moves her mouth or even talking or walking seems to aggravate it. She says in the last 3 days she re ally hasn't been able to sleep. She has a dental appointment later today but because of this discomf ort she came in to be seen. PAST MEDICAL HISTORY: She denied any medical problems. MEDICATIONS: A llegra D, Tylenol, Advil, Aleve. ALLERGIES: No known drug allergies. REVIEW OF SYSTEMS: All syste ms negative, except for that stated above. SOCIAL HISTORY: The patient has a child. She's single. 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 REVIEW OF SYSTEMS: All systems negative, except for t hat stated above; no shortness of breath, chest pain symptoms, back pains, headaches or any numbness or weakness. PHYSICAL EXAMINATION: Temperature 98.6, pulse 98, respirations 16, blood pressure 134/ 73, O2 saturations 100%. The patient is alert, cooperative, in no respiratory distress. HEENT - pup ils equal, round, reactive to light, conjunctivae clear, lids not swollen. Oropharynx - moist mucous membranes without erythema, lesion or swelling, no sign of dental problems. Nares are clear. Face without any swelling. Tympanic membranes appeared normal; the right side might be a little retracted, but the canal was normal. There was no tenderness externally. She did have some tenderness along th e right TMJ and a little bit above that on the gnosticism with the muscles in that area. NECK - there wa s no swelling, no adenopathy, no symptoms in her neck and no tenderness in her neck; neck supple, tra los midline, no stridor. CLINICAL IMPRESSION: Right jaw and face pain. This could be eustachian t ube dysfunction, though it's a little bit atypical for that. She could also be having some type of d ental process, though I don't see one - maybe a wisdom tooth process. She's going to be seen at the dentist. She's already on Ceci D, so she's on the current therapy, so it seems like pain control i s the major issue at this point, which I will go ahead and institute some pain control. CLINICAL KELLY N: She's to continue the Ceci D. Use Percocet 1/2 to 2 tablets q4h as needed for pain, #20. She 's to return if worsening; otherwise, keep her scheduled follow-up with the dentist later today. EM1 50_ JAY DENISE MD MT: Document: [id number] [place], [place] Name: AUDRA CARVAJAL EMERGENCY ROOM ENCOUNTER Page 2 of 2 LCN: MAYNOR DSC: 12/30/2002 [place], [place] Name: MR#: : Admit Date: AUDRA CARVAJAL [id number] 1975 12/30/2002 Doctor: JAY DENISE MD EMERGE NC[facility] ROOM ENCOUNTER Page 1 of 2 Electronically filed by Sona Carrington 01/10/2003 10:06 AM documented in this encounter Plan of Treatment Not on filedocumented as of this encounter Visit Diagnoses Diagnosis EMERGENCY ROOM ENCOUNTER - Primary documented in this encounter Care Teams Barrel Endshaker Adjuster Relationship Specialty Start Date End Date Vicki Mcgregor APRN NUCLEAR CARDIOLOGY TECHNOLOGIST PCP - General 07/21/03 [address] [place] [address] documented as of this encounter
--- OUTSIDE RECORDS SUMMARY | 2022-06-12 19:12 | XMS_ITS | Encounter Summary ---
:1975 Author Organization [place] Address [address] [place] [address] Care Team Providers Name Role Phone Unavailable Primary Care Provider Unavailable Reason for Visit Reason Comments Imm/Inj depo Encounter Details Date Type Department Care Team Description 04/25/2003 Allied Health/Nurse [facility] Eag an Imm/Inj (depo) Visit [address] [place] [address] Social History Tobacco Use Types Packs/Day Years Used Date Smoking Tobacco: Never Alcohol Use Standard Drinks/Week Comments No 0 (1 standard drink = 0.6 oz pure alcoho l) Sex Assigned at Date Recorded Not on file documented as of this encounter Nursing Notes 04/25/2003 1:30 PM CST >> BERNABE HUGHES 04/25/2003 1:51 pm Hcg urine neg. See med notes for inj info. Darin JOLLEY >> BERNABE HUGHES 04/25/2003 1:38 pm Pt one day late for depo inj. Ordering hcg urine. Darin JOLLEY documented in this encounter Plan of Treatment Not on filedocumented as of this encounter Procedures Procedure Name Priority Date/Time Associated Diagnosis Comme nts ZZCL AFF HCG, QUAL Routine 04/25/2003 1:33 PM Contraceptive Ma ngmt Results for this URINE WELDING ESTIMATOR Nec procedure are i n the results section. documented in this encounter Results HCG, QUAL URINE (04/25/2003 1:33 PM WELDING ESTIMATOR) P athologist Signature HCG Qual Urine Negative NEG [facility] Specimen Anatomical Collection Method Collection Time Receive d Time (Source) Location / / Volume Laterality 04/25/2003 1:33 PM 3 1:38 WELDING ESTIMATOR PM WELDING ESTIMATOR Vicki Mcgregor APRN [facility] Performing Organization Address City/State/ZIP Code Phon e Number [address] [address] [phone] [facility] documented in this encounter Visit Diagnoses Diagnosis Other general counseling and advice for contraceptive management - Primary documented in this encounter
--- OUTSIDE RECORDS SUMMARY | 2022-06-12 19:12 | XMS_ITS | Encounter Summary ---
:1975 Author Organization [facility] Address [address] [place] [address] Care Team Providers Name Role Phone Vicki Mcgregor APRN, CNP Primary Care Provider [phone] Reason for Visit Reason Comments Imm/Inj Encounter Details Date Type Department Care Team Description 10/09/2004 Allied Health/Nurse [facility] Eag an Imm/Inj Visit [address] [place] [address] Social History Tobacco Use Types Packs/Day Years Used Date Smoking Tobacco: Never Alcohol Use Standard Drinks/Week Comments No 0 (1 standard drink = 0.6 oz pure alcoho l) Sex Assigned at Date Recorded Not on file documented as of this encounter Nursing Notes 10/09/2004 1:30 PM CDT >> ELENA KELSEY 10/09/2004 1:46 pm Depo injection given see med notes for further details.Elena Kelsey MA documented in this encounter Plan of Treatment Not on filedocumented as of this encounter Visit Diagnoses Diagnosis Unspecified contraceptive management - P rimary documented in this encounter Care Teams Wafer Polishing Lead Worker Relationship Specialty Start Date End Date Vicki Mcgregor APRN CNP PCP - General 07/21/03 [address] [place] [address] documented as of this encounter
--- OUTSIDE RECORDS SUMMARY | 2022-06-12 19:12 | XMS_ITS | Encounter Summary ---
:1975 Author Organization [facility] Address [address] [place] [address] Care Team Providers Name Role Phone Vicki Mcgregor APRN, CNP Primary Care Provider [phone] Reason for Visit Reason Comments Imm/Inj depo Encounter Details Date Type Department Care Team Description 10/18/2003 Allied Health/Nurse [facility] Eag an Imm/Inj (depo) Visit [address] [place] [address] Social History Tobacco Use Types Packs/Day Years Used Date Smoking Tobacco: Never Alcohol Use Standard Drinks/Week Comments No 0 (1 standard drink = 0.6 oz pure alcoho l) Sex Assigned at Date Recorded Not on file documented as of this encounter Nursing Notes 10/18/2003 2:30 PM CDT >> MICHELL PLATT 10/18/2003 2:33 pm pt here for N.O. depo injection The following medication was given: MEDICATION: Depo Provera 150mg ROUTE: IM SITE: Deltoid - Left LOT #: [id number] Informatics Nurse Specialist: [employer] EXPIRATION DATE: 12/2006 Michell Platt ma documented in this encounter Plan of Treatment Not on filedocumented as of this encounter Visit Diagnoses Diagnosis Other general counseling and advice for contraceptive management - Primary documented in this encounter Care Teams Park Guide Relationship Specialty Start Date End Date Vicki Mcgregor APRN CNP PCP - General 07/21/03 [address] [place] [address] documented as of this encounter
--- OUTSIDE RECORDS SUMMARY | 2022-06-12 19:12 | XMS_ITS | Clinical Summary ---
:1975 Author Organization [facility] [place] [address] Care Team Providers Name Role Phone Pcp, No Primary Care Provider Unavailable Allergies No known active allergies Medications Medication Sig Dispensed Refills Start Date End Date Status hydrOXYzine HCL Take 1 tablet by 30 tablet 0 12/07/2019 Active (ATARAX) 25 mg mouth every 6 tabletIndications: hours if needed Anxiety and depression for Anxiety. Or sleep busPIRone (BUSPAR) 10 Take 1 tablet by 90 tablet 5 01/16/2020 Active mg tabletIndications: mouth 3 times Anxiety daily. traZODone (DESYREL) 50 Take 1-2 Tablets 90 Tablet 3 09/11/2020 Active mg tabletIndications: by mouth at Sleep difficulties bedtime if needed for Sleep. arm brace As directed 1 1 Each 0 06/05/2021 Activ e miscIndications: Left Each. elbow pain FLUoxetine (PROZAC) 40 Take 1 Capsule 90 Capsule 3 02/26/2022 Active mg capsuleIndications: (40 mg) by mouth Anxiety, Recurrent every morning. major depressive disorder, in partial remission (HC) Active Problems Problem Noted Date LGSIL of cervix of undetermined significance 6 Overview: Abnormal pap result in appoximately 2014 or 2015. Was advised f/u 1 year with pap. 08/2020 NIL/HPV+, HPV 16/18 negative 02/26/22 LSIL/HPV+, 16/18 negative Plan: Colposcopy Encounters Date Type Specialty Care Team Description 04/30/2022 Telephone Jluis Villela PA Pap P glenys (Pap Plan - [place] Due) 03/14/2022 Telephone Jluis Villela PA Pap P lan from Last 3 Months Immunizations Name Administration Dates Next Due COVID-19 vaccine (Moderna 100mcg/0.5mL) PF, MDV 01/17/2021, 12/20/2020 Influenza, IIV3 (Age >=3 years) 04/21/2006 Td (Age >=7 Years) 11/01/2003 Td, Preservative Free (age >= 7 Years) 11/01/2003 Tdap 02/09/2021 Family History Medical History Relation Name Comments No Known Problems Brother 1 No Known Problems Brother 2 Good Health Daughter Coronary artery disease Father Hypertension Father COPD Mother Cancer-colon Mother Heart Disease Mother Hypertension Mother Mental illness Mother Heart attack Paternal Grandfather in his 60s Anxiety disorder Sister 1 Marianela Bipolar disorder Sister 1 Marianela Depression Sister 1 Marianela Other Sister 1 Marianela female issues Mental illness Sister 2 Abbie Good Health Son Cancer-breast No Family History Relation Name Status Comments Brother 1 Alive Brother 2 Alive Daughter Alive Father Alive Maternal Grandfather Maternal Grandmother Mother Alive Paternal Grandfather Paternal Grandmother Sister 1 Marianela Alive Sister 2 Abbie Alive Son Alive Social History Tobacco Use Types Packs/Day Years Used Date Smoking Tobacco: Never Smokeless Tobacco: Never Alcohol Use Standard Drinks/Week Comments Yes 0 (1 standard drink = 0.6 oz pure once o r twice a month 1-2 drinks, alcohol) Sex Assigned at Date Recorded Not on file Obstetrics History Last Filed Vital Signs Vital Sign Reading Time Taken Comments Blood Pressure 120/68 02/26/2022 7:34 AM CDT Pulse 96 06/05/2021 7:38 AM SPINDRAW OPERATOR Temperature 36.2 ??C (97.2 ??F) 05/07/2021 2:37 PM SPINDRAW OPERATOR Respiratory Rate 16 05/07/2021 2:37 PM SPINDRAW OPERATOR Oxygen Saturation 99% 05/07/2021 2:37 PM SPINDRAW OPERATOR Inhaled Oxygen Concentration - - Weight 92.5 kg (204 lb) 02/26/2022 7:34 AM CDT Height 161 cm (5' 3.4) 02/26/2022 7:34 AM CDT Body Mass Index 35.68 02/26/2022 7:34 AM CDT Plan of Treatment Health Maintenance Due Date Last Done Comments HIV for age 15-65 09/26/1991 COVID-19 vaccine series (3 - 03/14/2021 01/17/2021, 021 Booster for Moderna series) Colonoscopy through age 75 2021 Mammogram for age 45-75 10/25/2021 10/25/2020, 10/16/2020 Influenza for age 9-49 02/28/2022 04/21/2006 Depression screening for age 12+ 06/05/2022 06/05/2021, , 09/11/2020, Additional history exists BMI (ht and wt on same day) for 02/26/2023 02/26/2022, 09/0 06/2020, age 18+ 02/09/2021, Additional history exists Pap test for age 21-65 02/26/2023 02/26/2022, 02/26/2022, 09/11/2020, Additional history exists Lipids for age 45-75 02/26/2027 02/26/2022, 09/11/2020 Tetanus booster 02/09/2031 02/09/2021, 11/01/2003, 11/01/2003 Tdap Completed 02/09/2021 Hepatitis C screening for age Completed 02/26/2022 18-79 Results Not on filefrom Last 3 Months Insurance Payer Benefit Plan / Subscriber ID Effective Dates Phone Addre ss Type Group [facility] [id number] 2018-Present [address] [address] [place] [address] Care Teams Parcel Carrier Relationship Specialty Start Date End Date Pcp, No PCP - General 03/19/12 .
--- OUTSIDE RECORDS SUMMARY | 2022-06-12 19:12 | XMS_ITS | Encounter Summary ---
:1975 Author Organization [facility] Address [address] [place] [address] Care Team Providers Name Role Phone Unavailable Primary Care Provider Unavailable Reason for Visit Reason Comments Physical Wants to start Depo Encounter Details Date Type Department Care Team Description 10/18/2002 Office Visit [facility] Mike Mcgregor ROUTIN E MEDICAL EXAM; [place] BUSINESS BANKER CHANNEL MAN CONTRACEPTIVE MANGMT NEC; [address] [address] CIMARRON SCREENING MAL NEOP-CERVIX [place] [address] [phone] [place] [address] Social History Tobacco Use Types Packs/Day Years Used Date Smoking Tobacco: Never Alcohol Use Standard Drinks/Week Comments No 0 (1 standard drink = 0.6 oz pure alcoho l) Sex Assigned at Date Recorded Not on file documented as of this encounter Last Filed Vital Signs Vital Sign Reading Time Taken Comments Blood Pressure 122/72 10/18/2002 12:45 PM CDT Pulse 78 10/18/2002 12:45 PM CDT Temperature - - Respiratory Rate - - Oxygen Saturation - - Inhaled Oxygen Concentration - - Weight 77.6 kg (171 lb) 10/18/2002 12:45 PM CDT Height 160.7 cm (5' 3.25) 10/18/2002 12:45 PM CDT Body Mass Index 30.05 10/18/2002 12:45 PM CDT documented in this encounter Progress Notes 10/18/2002 12:45 PM CDT CC: Audra Carvajal is a 27 year old female who presents for routine health maintenance exam. HPI : Wants to discuss diet and exercise. Using over the counter diet supplements. Discussed safety of these meds. General diet and exercise discussed. Wants to restart depo provera. Discussed risks and benefits and possibility of irregular bleeding the first year. Patient has been on this med before adn tolerated it well without side effects. REVIEW OF SYSTEMS: Constitutional: NEGATIVE for fever, c hills, change in weight Inteumentary/Skin: NEGATIVE for worrisome rashes, moles or lesions Eyes: NEGA TIVE for vision changes or irritation ENT: NEGATIVE for ear, mouth and throat problems Resp: NEGATIVE for significant cough or SOB Breast: NEGATIVE for masses, tenderness or discharge CV: NEGATIVE for c hest pain, palpitations or peripheral edema GI: NEGATIVE for nausea, abdominal pain, heartburn, or ch hunter in bowel habits : NEGATIVE for frequency, dysuria, hematuria, No complaints of sexual dysfunct ion Musculoskelatal: NEGATIVE for significant arthralgias or myalgia Neuro: NEGATIVE for weakness, di zziness or paresthesias Endocrine: NEGATIVE for temperature intolerance, skin/hair changes Heme/Aller gy/Immune: NEGATIVE for bleeding problems Psychiatric: NEGATIVE for changes in mood or affect. No Pr evious history of abnormal pap. Patient's last menstrual period was 10/01/2002. Menses are regular an d cycle is generally every 28 days; lasting for 4 days with normal flow. Slight complaints of dysme norrhea. Slight complaints of PMS/PMDD Menarche age 14. is sexually active with 1 Male partners in the last year. There is no problem list on file for this patient. Past medical history was al so reviewed There is no previous surgical history on file. Review of patient's family history indic ates: Respiratory Mother Comment: Emphysema Mom adopted not sure of FX HX Cancer Sister Comment: Ovarian? Cardio vascular Paternal Grandfather Current prescriptions: MEDS UNK - RECORDS REQUESTED [facility] Allergies: No Known Drug Allergies Social History Marital Status: Spouse Name: Years of Education: Number of childr en: Social History Main Topics Tobacco Use: Never Alcohol Use: No Drug Use: No Sexually Active: Yes Partners with: Male Control/P rotection: Injection Other Topics Concern None on file Social History Narrative Habi ts: Fruits and Veg very little-- serving/day Dairy 2 serving per day. Calcium supplement no m g/d. excercise--- no self breast exam--- occasionally sunscreen--- yes seatbelts--- yes gun s no smoke/CO detector check has a smoke detector, is considering CO detector EXAM: BP 122/72 Pulse 78 Ht 5' 3.25 (1.607m) Wt 171 lbs (77.565 kg) LMP 10/01/2002 GENERAL APPEARANCE: healthy ,alert,no distress EYES: Eyes grossly normal to inspection,,PERRL HENT: ear canals and TM's normal,no se and mouth without ulcers or lesions NECK: no adenopathy,no asymmetry, masses, or scars,thyroid nor mal to palpation RESP: lungs clear to auscultation - no rales, rhonchi or wheezes BREAST: normal with out masses, tenderness or nipple discharge,no palpable axillary masses or adenopathy CV: regular rate s and rhythm,normal S1 S2, no S3 or S4,no murmur, click or rub LYMPH: normal ant/post cervical, axill prabha, supraclavicular and inguinal nodes ABDOMEN: soft, nontender, without hepatosplenomegaly or kisha s,bowel sounds normal : normal cervix, adnexae, and uterus without masses or discharge MUSCULOSKELE MATTI: extremities normal- no gross deformities noted SKIN: no suspicious lesions or rashes NEURO: Norm al strength and tone, sensory exam grossly normal,mentation intact,speech normal PSYCH: mentation michael ears normal.,affect normal/bright. V70.0 ROUTINE MEDICAL EXAM Note: Plan: V25.[address] [facility] Note: Plan: MEDRXYPROGESTER ACETATE INJ--routine standing orders. Nurse only visit with ne xt menses. If ordered, I have discussed with the patient the risks, benefits, and treatment opt ions of prescribed medications or other treatment modalities. I have instructed the patient to sadia l or schedule a follow-up appointment for any problems or failure to improve. documented in this encounter Nursing Notes 10/18/2002 12:45 PM CDT >> MOISES MARTINES 10/18/2002 12:58 pm Last Pap: 1999? Ivelisse Packer M.A. documented in this encounter Plan of Treatment Not on filedocumented as of this encounter Procedures Procedure Name Priority Date/Time Associated Diagnosis Comme nts HCL PAP THIN LAYER Routine 10/18/2002 12:00 AM Screening Mal R esults for this SCREEN CDT Neop-Cervix procedure are i n the results section. documented in this encounter Results A THIN LAYER PAP SCREEN (10/18/2002 12:00 AM CDT) Component Value Ref Test Analysis Performed At [facility] Range Method Time Signature Copath Report Patient Name: AUDRA CARVAJAL MR#: [id number] Specimen #: [id number] Collected: 10/18/02 Received: 10/19/02 Reported: 10/26/02 11:20 Ordering Phy(s): MIKE MCGREGOR SPECIMEN/STAIN PROCESS: Pap thin layer prep screening ? Pap-Cyto x 1, Reflex HPV x 1 SOURCE: Cervical, endocervical ---- Pap thin layer prep screening SPECIMEN ADEQUACY: Satisfactory for evaluation. -Transitional zone component present. CYTOLOGIC INTERPRETATION: Negative for Intraepithelial Lesion or Malignancy Electronically signed out by: ANTONIO Lopez (ASCP) Processed and screened at [facility] CLINICAL HISTORY: LMP: 10-01-2002 Specimen (Source) Anatomical Collection Method Collection Time Re ceived Time Location / / Volume Laterality 10/18/2002 10/19/2002 11:0 1 AM CDT Mike Mcgregor BUSINESS BANKER [facility] [facility] Performing Organization Address City/State/ZIP Code Phon e Number [place] documented in this encounter Visit Diagnoses Diagnosis Routine general medical examination at a health care facility Other general counseling and advice for contraceptive management Screening for malignant neoplasm of the cervix documented in this encounter
--- OUTSIDE RECORDS SUMMARY | 2022-06-12 19:12 | XMS_ITS | Encounter Summary ---
:1975 Author Organization [facility] Address [address] [place] [address] Care Team Providers Name Role Phone Vicki Mcgregor YUE ROTARY ROCK DRILLING MACHINE OPERATOR Primary Care Provider [phone] Reason for Visit Reason Comments Eye Problem Imm/Inj Needs depo inj Encounter Details Date Type Department Care Team Description 01/13/2004 Office Visit [facility] Carmella Quintana, ACUTE CONJUNCTIVITIS NOS; [place] LARSEN CONTRACEPTIVE MANGMT NOS [address] [place] [address] JAZZY [phone] [facility] [place] [address] Social History Tobacco Use Types Packs/Day Years Used Date Smoking Tobacco: Never Alcohol Use Standard Drinks/Week Comments No 0 (1 standard drink = 0.6 oz pure alcoho l) Sex Assigned at Date Recorded Not on file documented as of this encounter Last Filed Vital Signs Vital Sign Reading Time Taken Comments Blood Pressure 110/60 01/13/2004 2:15 PM CDT Pulse 80 01/13/2004 2:15 PM CDT Temperature 37.2 ??C (98.9 ??F) 01/13/2004 2:15 PM CDT Respiratory Rate - - Oxygen Saturation - - Inhaled Oxygen Concentration - - Weight - - Height - - Body Mass Index - - documented in this encounter Progress Notes 01/13/2004 2:15 PM CDT SUBJECTIVE: 28 year old female with burning, redness, discharge and watering in right eye for 2 days . No other symptoms. No significant prior ophthalmological history. No change in visual acuity, no photophobia, no severe eye pain. also due for depo shot OBJECTIVE: Patient appears well, vitals sig ns are normal. Eyes: right eye with findings of typical allergic conjunctivitis noted; erythema and w atering discharge. PERRLA, no foreign body noted. No periorbital cellulitis. The corneas are clear an d fundi normal. Visual acuity normal grossly. significant conjuctival cobblestoning. no cilliary fl [facility]. ASSESSMENT: Conjunctivitis - probably allergic PLAN: Trial of allergy drops Antibiotic drops per order if allergy drops do not work. Hygiene discussed. If other family members develop same condi tion, may use same medication for them if they are not known to be allergic to it.Call prn. documented in this encounter Nursing Notes 01/13/2004 2:15 PM CDT >> JENNA AZEVEDO 01/13/2004 2:33 pm Initial BP 110/60 Pulse 80 Temp (Src) 98.9 (Oral) LMP completed using BP cuff size: regular >> JENNA AZEVEDO 01/13/2004 2:32 pm Right eye itchy, tearing, and was mattered shut this am. documented in this encounter Plan of Treatment Not on filedocumented as of this encounter Visit Diagnoses Diagnosis Acute conjunctivitis, unspecified Unspecified contraceptive management documented in this encounter Care Teams Intermediate Accountant Relationship Specialty Start Date End Date Vicki Mcgregor APRN ROTARY ROCK DRILLING MACHINE OPERATOR PCP - General 07/21/03 [address] [place] [address] documented as of this encounter
--- OUTSIDE RECORDS SUMMARY | 2022-06-12 19:12 | XMS_ITS | Encounter Summary ---
:1975 Author Organization [facility] Address [address] [place] [address] Care Team Providers Name Role Phone Vicki Mcgregor APRN BIOCHEMISTRY TECHNOLOGIST Primary Care Provider [phone] Reason for Visit Reason Comments Imm/Inj Depo provera Encounter Details Date Type Department Care Team Description 07/21/2003 Allied Health/Nurse [facility] Eag an Imm/Inj (Depo provera) Visit [address] [place] [address] Social History Tobacco Use Types Packs/Day Years Used Date Smoking Tobacco: Never Alcohol Use Standard Drinks/Week Comments No 0 (1 standard drink = 0.6 oz pure alcoho l) Sex Assigned at Date Recorded Not on file documented as of this encounter Nursing Notes 07/21/2003 1:30 PM CST >> FRANK SIEGEL 07/21/2003 2:03 pm Nurse only Depo Provera given.Pt jewel any side effects. See med notes.Frank Siegel RN documented in this encounter Plan of Treatment Not on filedocumented as of this encounter Visit Diagnoses Diagnosis Other general counseling and advice for contraceptive management - Primary documented in this encounter Care Teams Buggy Driver Relationship Specialty Start Date End Date Vicki Mcgregor APRN BIOCHEMISTRY TECHNOLOGIST PCP - General 07/21/03 [address] [place] [address] documented as of this encounter
--- OUTSIDE RECORDS SUMMARY | 2022-06-12 19:12 | XMS_ITS | Encounter Summary ---
:1975 Author Organization [facility] Address [address] [place] [address] Care Team Providers Name Role Phone Vicki Mcgregor YUE CANCINO Primary Care Provider [phone] Reason for Visit Reason Comments Eye Problem Encounter Details Date Type Department Care Team Description 03/26/2005 Office Visit [facility] Lalo Fleming, NANCIE Antonio MD (Primary Dx) [address] [facility] [address] [place] [address] K[place] Gee [address] KENDY ANTONIO [id number] (Wo rk) Social History Tobacco Use Types Packs/Day Years Used Date Smoking Tobacco: Never Alcohol Use Standard Drinks/Week Comments No 0 (1 standard drink = 0.6 oz pure alcoho l) Sex Assigned at Date Recorded Not on file documented as of this encounter Last Filed Vital Signs Vital Sign Reading Time Taken Comments Blood Pressure 110/80 03/26/2005 10:00 AM CDT Pulse 68 03/26/2005 10:00 AM CDT Temperature - - Respiratory Rate - - Oxygen Saturation - - Inhaled Oxygen Concentration - - Weight 84.8 kg (187 lb) 03/26/2005 10:00 AM CDT Height - - Body Mass Index 32.61 03/13/2005 10:00 AM CDT documented in this encounter Progress Notes Lalo Fleming - 03/26/2005 10:33 AM CDT SUBJECTIVE: Audra Perez, a 29 year old female, presents for evaluation of swelling and redness under the left eye. She has had this for 2 days. Tenderness when she blinks. No drainage. No fevers/chills/sweats. Vision is not affected. No pain with eye movement. OBJECTIVE: BP 110/80 Pulse 68 Wt 187 lbs (84.8kg) EYE: the sclerae are clear and EOMI PERIORBITAL TISSUES: there is periorbital edema with a 1 cm area of redness and induration just inferior to the lateral canthus on the left, overlying small area of excoriation LYMPH: no axillary or cervical lymphadenopathy ASSESSMENT/PLAN: 682.0 CELLULITIS CHEEK (primary encounter diagnosis) Note: Patient advised to get immediate followup if she should develop high fever or visual/eye specific symptoms that might suggest orbital extension of cellulitis. Plan: AMOXICILLIN-POT CLAVULANATE 875-125 MG OR TABS Lalo Fleming MD documented in this encounter Nursing Notes 03/26/2005 10:00 AM CDT >> RONN WEINSTEIN 03/26/2005 10:22 am Audra Perez presents for left lower eye redness,tenderness and swelling. Notes Friday when woke up Initial BP 110/80 Pulse 68 Wt 187 lbs (84.8kg) Estimated Body Mass Index is 32.60 kg/(m^2) as calculated from: Height of 5' 3.5 (1.613m) as of 03/13/05 Weight of 187 lbs (84.823 kg) as of this encounter. BP completed using cuff size: large [facility] [place] documented in this encounter Plan of Treatment Not on filedocumented as of this encounter Visit Diagnoses Diagnosis CELLULITIS CHEEK - Primary Cellulitis and abscess of face documented in this encounter Care Teams Centrifugal Machine Tender Relationship Specialty Start Date End Date Vicki Mcgregor APRN ANIMAL TECHNICIAN PCP - General 07/21/03 [address] [place] [address] documented as of this encounter
--- OUTSIDE RECORDS SUMMARY | 2022-06-12 19:12 | XMS_ITS | Encounter Summary ---
:1975 Author Organization [facility] Address [address] [place] [address] Care Team Providers Name Role Phone Unavailable Primary Care Provider Unavailable Reason for Visit Reason Comments EUSTACIAN TUBE DYSFUNCTION Encounter Details Date Type Department Care Team Description 12/28/2002 Abstract [facility] Kaity Fletcher [address] [address] [place] [address] Social History Tobacco Use Types Packs/Day Years Used Date Smoking Tobacco: Never Alcohol Use Standard Drinks/Week Comments No 0 (1 standard drink = 0.6 oz pure alcoho l) Sex Assigned at Date Recorded Not on file documented as of this encounter Progress Notes 12/28/2002 11:59 PM CDT PLAN: Keturah 1 BID #60 F/U primary MD This information has been abstracted from the [employer]. Electronically filed by rBielle Hernandez 01/14/2003 11:40 AM documented in this encounter Plan of Treatment Not on filedocumented as of this encounter Visit Diagnoses Not on filedocumented in this encounter
--- OUTSIDE RECORDS SUMMARY | 2022-06-12 19:12 | XMS_ITS | Encounter Summary ---
:1975 Author Organization [place] Address [address] [place] [address] Care Team Providers Name Role Phone Mike Mcgregor APRN, CNP Primary Care Provider [phone] Reason for Referral - Closed Specialty Diagnoses / Procedures Referred By Contact Refer red To Contact Diagnoses Headache(784.0) Mike Mcgregor APRN CNP [address] [address] [address] Referral ID Status Reason Start Date Expiration Date Visits Requ ested Visits Authorized [id number] Closed 03/13/2005 06/29/2011 1 1 Reason for Visit Reason Comments Physical Encounter Details Date Type Department Care Team Description 03/13/2005 Office Visit [facility] Mike Mcgregor CONTRA CEPSOPHIE MANGMT NEC (Primary Dx); Paco TURNER CNP HEADACHE; [address] [address] JOSEPHARRBRIE SCREENING MAL NEOP-CERVIX; K[place]Y [place] [address] [address] ROUTINE MEDICAL EXAM [phone] KENDY DIAZ [id number] Social History Tobacco Use Types Packs/Day Years Used Date Smoking Tobacco: Never Alcohol Use Standard Drinks/Week Comments No 0 (1 standard drink = 0.6 oz pure alcoho l) Sex Assigned at Date Recorded Not on file documented as of this encounter Last Filed Vital Signs Vital Sign Reading Time Taken Comments Blood Pressure 116/74 03/13/2005 10:00 AM CDT Pulse 80 03/13/2005 10:00 AM CDT Temperature - - Respiratory Rate 16 03/13/2005 10:00 AM CDT Oxygen Saturation - - Inhaled Oxygen Concentration - - Weight 83.9 kg (185 lb) 03/13/2005 10:00 AM CDT Height 161.3 cm (5' 3.5) 03/13/2005 10:00 AM CDT Body Mass Index 32.26 03/13/2005 10:00 AM CDT documented in this encounter Progress Notes Meche, Mike - 03/13/2005 11:04 AM CDT CC: Audra Carvajal is a 29 year old female who presents for routine health maintenance exam. HPI: Pt is having daily headache for some time now. Increased ibuprofen and tylenol use. Occasional worsening headache with nausea and photphobia but usually just a dull headache over top of head and at times left occiput--even notes spasm and swelling at base of left occiput at times. No new symptoms and no neurological deficits. ALSO: would like to restart contraception. New relationship. Has been on depo provera for many years. Discussed manager long term care results of depo. Pt elects to try Nuva ring. Use of ring and insertion, removaltechniques reviewed. Discussed ring start and timing issues. Patient Active Problem List: HEADACHE[784.0] Past medical history was also reviewed There is no previous surgical history on file. Family History: Respiratory Mother Comment: Emphysema Mom adopted not sure of FX HX Cancer Sister Comment: Ovarian? Cardiovascular Paternal Grandfather Cardiovascular Mother Comment: COPD Current outpatient prescriptions: PATANOL 0.1 % OP SOLN 2 gtts in right eye BID POLYTRIM 12930-5.1 UNIT/ML-% OP SOLN apply to right eye 2 gtts QID for 5 days DEPO-PROVERA 150 MG/ML IM SUSP 1 ml every 12 weeks MEDS UNK - RECORDS REQUESTED [facility] Allergies: No Known Drug Allergies Social History Marital Status: Single Spouse Name: N/A Years of Education: N/A Number of Children: N/A Occupational History None on file Social History Main Topics Tobacco Use: Never Alcohol Use: No Drug Use: No Sexually Active: Yes Partners: Male Control/ Protection: Injection Other Topics Concern Social History Narrative Habits: Fruits and Veg very little-- serving/day Dairy 2 serving per day. Calcium supplement no mg/d. excercise--- no self breast exam--- occasionally sunscreen--- yes seatbelts--- yes guns no smoke/CO detector check has a smoke detector, is considering CO detector REVIEW OF SYSTEMS: Constitutional: NEGATIVE for fever, chills, or unexpected change in weight. No complains of sleep issues. Eyes: NEGATIVE for vision changes or irritation ENT: NEGATIVE for ear, mouth and throat problems Endocrine: NEGATIVE for temperature intolerance, skin/hair changes. No increased thirst or increasedurination. Resp: NEGATIVE for significant cough or SOB Breast: NEGATIVE for masses, tenderness or discharge CV: NEGATIVE for chest pain, palpitations or peripheral edema GI: NEGATIVE for nausea, abdominal pain, heartburn, or change in bowel habits : NEGATIVE for frequency, dysuria, hematuria, No complaints of sexual dysfunction. Neuro: Negative for weakness, dizzyness, or paresthesias. Musculoskelatal: NEGATIVE for significant arthralgias or myalgia Heme/Allergy/Immune: NEGATIVE for bleeding problems or problematic allergy symptoms Psychiatric: NEGATIVE for changes in mood or affect. Inteumentary/Skin: NEGATIVE for worrisome rashes, moles or lesions EXAM: BP 116/74 Pulse 80 Resp 16 Ht 5' 3.5 (1.61m) Wt 185 lbs (83.9kg) LMP Injection GENERAL APPEARANCE: healthy,alert,no distress EYES: Eyes grossly normal to inspection,lids and lashes within normal limits fundi benign-no diabetic or hypertensive changes seen, PERRL HENT: ear canals and TM's normal,nose and mouth without ulcers or lesions NECK: no adenopathy,no asymmetry, masses, or scars, thyroid normal to palpation and non tender. RESP: lungs clear to auscultation - no rales, rhonchi or wheezes BREAST: normal without surface changes, masses, tenderness or nipple discharge,no palpable axillary masses or adenopathy CV: regular rates and rhythm,normal S1 S2, no S3 or S4,no murmur, click or rub LYMPH: normal ant/post cervical, axillary, supraclavicular nodes. ABDOMEN: soft, nontender, without hepatosplenomegaly or masses,bowel sounds normal : normal cervix, adnexae, and uterus without masses or discharge MUSCULOSKELETAL: extremities normal- no gross deformities noted NEURO: Normal strength and tone, sensory exam grossly normal,mentation intact,speech normal PSYCH: mentation appears normal.,affect normal/bright. SKIN: no suspicious lesions or rashes A/P: V25.09 CONTRACEPTIVE MANGMT NEC (primary encounter diagnosis) Note: urine HCG negative Plan: HCG, QUAL URINE, NUVARING 0.12-0.015 MG/24HR VA RING 784.0 HEADACHE Note: musculoskeletal and migraine. Plan: CONSULT MORENO (PT & CHIRO) follow up 6-8 weeks and prn. extra 10 min spent discussing headache management V76.2 SCREENING MAL NEOP-CERVIX Note: Plan: A THIN LAYER PAP SCREEN V70.0 ROUTINE MEDICAL EXAM Note: Plan: CHLMYD TRACH, DNA, AMP PROBE, N.GONORRHOEAE, DNA, (GC) As ordered, I have discussed with the patient the risks, benefits, and treatment options of prescribed medications or other treatment modalities. I have instructed the patient to call or schedule a follow-up appointment for any problems or failure to improve. [phone] 09/2007 2 rings Michell Gunn - 03/13/2005 10:13 AM CDT HEALTH CARE MAINTENANCE: Ever had an abnormal pap? No Menses are every on depo - irregular days; lasting for na days. Flow is na. Menstrual Pain? na PMS symptoms? na Have you had a pneumonia shot? No How many dairy products do you eat daily? 2 Have you had an eye exam in the past year? YES Health Maintenance Reviewed: Date Due Procedure 10/31/2004 - PAP Q1YR SAFETY: ======= Do you exercise? YES If yes, how many times per week? irregular - pt walks Do you feel safe in your relationship(s)? not in a relationship Do you have a gun in your home? No Do you wear your seatbelt regularly? YES Do you use sunscreen? sometimes Are you fasting today? No Michell Gunn ma documented in this encounter Plan of Treatment Not on filedocumented as of this encounter Procedures Procedure Name Priority Date/Time Associated Diagnosis Comme nts CL AFF Routine 03/13/2005 11:19 Routine Medical Exam Res ults for this N.GONORRHOEAE, DNA AM CDT procedure are in AMP PROBE the results section. CL AFF CHLMYD Routine 03/13/2005 11:19 Routine Medical Exam Re sults for this TRACH, DNA, AMP AM CDT procedure ar e in PROBE the results section. ZZCL AFF HCG, QUAL Routine 03/13/2005 10:17 Contraceptive Chet mt Results for this URINE AM CDT Nec procedure are i n the results section. HCL PAP THIN LAYER Routine 03/13/2005 12:00 Screening Mal Resu lts for this SCREEN AM CDT Neop-Cervix procedure are i n the results section. documented in this encounter Results N.GONORRHOEAE, DNA, (GC) (03/13/2005 11:19 AM CDT) Component Value Ref Test Analysis [facility]formed [facility] Range Method Time Signature Specimen Vagina [facility] LABS N Gonorrhea Negative for N. gonorrhoeae rRNA by adobe block maker mediated amplification. [facility] PCR A negative result by transc ription mediated amplification does not preclude the DULCE presence of N. gonorrhoeae infection because re sults are dependent on proper CAMPUS LABS and adequate collection, absence of inhibitors, and suffici ent rRNA to be detected. Specimen Anatomical Collection Method Collection Time Receive d Time (Source) Location / / Volume Laterality 03/13/2005 11:19 03/13/2005 AM CDT 11:22 AM CDT Mike Mcgregor APRN BULK PLANT SUPERVISOR LABORATORY Performing Organization Address City/State/ZIP Code Phon e Number [id number] [place] [address] LABS CHLMYD TRACH, DNA, AMP PROBE (03/13/2005 11:19 AM CDT) Component Value Ref Test Analysis Performed At [facility] Range Method Time Signature Specimen Vagina [facility] LABS Chlamydia Negative for C. trachomatis rRNA by adobe block maker mediated amplification. [facility] Trachomatis A negative result by transc ription mediated amplification does not preclude the [facility] PCR presence of C. trachomatis infection because results are dependent on proper CAMPUS LABS and adequate collection, absence of inhibitors, and suffici ent rRNA to be detected. Specimen Anatomical Collection Method Collection Time Receive d Time (Source) Location / / Volume Laterality 03/13/2005 11:19 03/13/2005 AM CDT 11:22 AM CDT Mike Mcgregor APRN BULK PLANT SUPERVISOR LABORATORY Performing Organization Address City/State/ZIP Code Phon e Number [facility] [address] [place] [address] [facility] LABS HCG, QUAL URINE (03/13/2005 10:17 AM CDT) P athologist Signature HCG Qual Urine Negative NEG [facility] LAB Specimen Anatomical Collection Method Collection Time Receive d Time (Source) Location / / Volume Laterality 03/13/2005 10:17 03/13/2005 AM CDT 10:20 AM CDT Mike Mcgregor AIRLINE MANAGERIAL SUPERVISOR BULK PLANT SUPERVISOR LABORATORY Performing Organization Address City/State/ZIP Code Phon e Number [address] [address] [facility] LAB A THIN LAYER PAP SCREEN (03/13/2005 12:00 AM CDT) Component Value Ref Test Analysis Performed At [facility]olo gist Range Method Time Signature PAP NIL [place] Copath Report COP[facility] Patient Name: AUDRA CARVAJAL MR#: [id number] Specimen #: [id number] Collected: 03/13/2005 Received: 03/14/2005 Reported: 03/18/2005 11:26 Ordering Phy(s): MIKEBrandon MCGREGOR SPECIMEN/STAIN PROCESS: Pap thin layer prep screening ([facility]) ? Pap-Cyto x 1, Reflex HPV x 1 SOURCE: Cervical, endocervical ---- Pap thin layer prep screening ([facility]) SPECIMEN ADEQUACY: Satisfactory for evaluation. -Transitional zone component present. CYTOLOGIC INTERPRETATION: Negative for Intraepithelial Lesion or Malignancy Electronically signed out by: ANTONIO Varma (ASCP) Processed and screened at [facility] Medical nt, [facility] CLINICAL HISTORY: injection Depo-Provera, Previous normal pap Date of Last Pap: 1 year, TESTING LAB LOCATION: [address] ??[address] COLLECTION SITE: Client: ??[facility] Location: [facility] (R) Specimen (Source) Anatomical Collection Method Collection Time Re ceived Time Location / / Volume Laterality 03/13/2005 03/14/2005 1:23 PM CDT Mike Mcgregor APRN, CNP LABORATORY Performing Organization Address City/State/ZIP Code Phon e Number [place] documented in this encounter Visit Diagnoses Diagnosis Other general counseling and advice for contraceptive management - Primary Headache(784.0) Headache Screening for malignant neoplasm of the cervix Routine general medical examination at a health care facility documented in this encounter Care Teams Data Center Architect Relationship Specialty Start Date End Date Mike Mcgregor APRN CNP PCP - General 07/21/03 [address] [place] [address] documented as of this encounter
--- OUTSIDE RECORDS SUMMARY | 2022-06-12 19:12 | XMS_ITS | Encounter Summary ---
:1975 Author Organization [facility] Address [address] [place] [address] Care Team Providers Name Role Phone Vicki Mcgregor HUMAN RESOURCES OPERATIONS DIRECTOR ASSOCIATE VETERINARIAN Primary Care Provider [phone] Reason for Visit Reason Onset Date Comments Medication Problem 04/11/2005 nuvaring Encounter Details Date Type Department Care Team Description 04/11/2005 Refill [facility] Eag an Vicki Mcgregor, Medication Problem [address] [facility] HUMAN RESOURCES OPERATIONS DIRECTOR ASSOCIATE VETERINARIAN (nuvaring) [place] [address] [facility] [phone] [place], [place] [address] (Wo rk) Social History Tobacco Use Types Packs/Day Years Used Date Smoking Tobacco: Never Alcohol Use Standard Drinks/Week Comments No 0 (1 standard drink = 0.6 oz pure alcoho l) Sex Assigned at Date Recorded Not on file documented as of this encounter Miscellaneous Notes Telephone Encounter - Terese Rueda - 04/11/2005 3:53 PM CDT LM that pt needed to make appt. Terese Rueda RN Telephone Encounter - Vicki Mcgregor - 04/11/2005 2:03 PM CDT Pt should be seen in clinic. Telephone Encounter - Terese Rueda - 04/11/2005 10:00 AM CDT Pt on nuvaring. Partner has prob, checked for STDs which were neg. Could he have rx to nuvaring? Nuvaring comes out during sex. Pt would like to change to another form of control. OK to LM on # above. It is pt's cell#. Terese Rueda RN Telephone Encounter - 04/11/2005 9:56 AM CDT Staff Message copied by TERESE RUEDA on 04/11/2005 at 9:56 AM ------ Message from: RONN WEINSTEIN Created: 04/11/2005 at 9:19 AM Regarding: VO Contact: Pt calling would like to speak to VO regarding control pt was started on a little over one month ago. SAMREEN Licea documented in this encounter Plan of Treatment Not on filedocumented as of this encounter Visit Diagnoses Not on filedocumented in this encounter Care Teams Self Rising Flour Mixer Relationship Specialty Start Date End Date Vicki Mcgregor APRN ASSOCIATE VETERINARIAN PCP - General 07/21/03 [address] [place] [address] documented as of this encounter
--- OUTSIDE RECORDS SUMMARY | 2022-06-12 19:12 | XMS_ITS | Encounter Summary ---
:1975 Author Organization [facility] Address [address] [place] [address] Care Team Providers Name Role Phone Unavailable Primary Care Provider Unavailable Reason for Visit Reason Comments Imm/Inj Encounter Details Date Type Department Care Team Description 01/24/2003 Allied Health/Nurse [facility] Eag an Imm/Inj Visit [address] [place] [address] Social History Tobacco Use Types Packs/Day Years Used Date Smoking Tobacco: Never Alcohol Use Standard Drinks/Week Comments No 0 (1 standard drink = 0.6 oz pure alcoho l) Sex Assigned at Date Recorded Not on file documented as of this encounter Last Filed Vital Signs Vital Sign Reading Time Taken Comments Blood Pressure 112/70 01/24/2003 3:30 PM CDT Pulse - - Temperature - - Respiratory Rate - - Oxygen Saturation - - Inhaled Oxygen Concentration - - Weight 70.3 kg (155 lb) 01/24/2003 3:30 PM CDT Height - - Body Mass Index 27.24 10/18/2002 12:45 PM CDT documented in this encounter Nursing Notes 01/24/2003 3:30 PM CDT >> JUAN CARLOS FRANCIS 01/24/2003 3:40 pm Pt here for Depo injections, see med notes. MERRY PARRY documented in this encounter Plan of Treatment Not on filedocumented as of this encounter Visit Diagnoses Diagnosis Other general counseling and advice for contraceptive management - Primary documented in this encounter
--- OUTSIDE RECORDS SUMMARY | 2022-06-12 19:12 | XMS_ITS | Encounter Summary ---
:1975 Author Organization [place] Address [address] [place] [address] Care Team Providers Name Role Phone Mike Mcgregor APRN, CNP Primary Care Provider [phone] Reason for Visit Reason Comments Physical Coughing at night, recently in [place]. Sx x 1 week. Productive- yellow/green Encounter Details Date Type Department Care Team Description 11/01/2003 Office Visit [facility] Mike Mcgregor ROUTIN E MEDICAL EXAM (Primary Dx); Paco TURNER CNP ACUTE BRONCHITIS; [address] [address] CIMARRON [place]CREENING [place] [address] [address] [phone] [place], [place] [address] (Wo rk) Social History Tobacco Use Types Packs/Day Years Used Date Smoking Tobacco: Never Alcohol Use Standard Drinks/Week Comments No 0 (1 standard drink = 0.6 oz pure alcoho l) Sex Assigned at Date Recorded Not on file documented as of this encounter Last Filed Vital Signs Vital Sign Reading Time Taken Comments Blood Pressure 118/80 11/01/2003 9:00 AM CDT Pulse 80 11/01/2003 9:00 AM CDT Temperature - - Respiratory Rate 20 11/01/2003 9:00 AM CDT Oxygen Saturation - - Inhaled Oxygen Concentration - - Weight 72.1 kg (159 lb) 11/01/2003 9:00 AM CDT Height 161.3 cm (5' 3.5) 11/01/2003 9:00 AM CDT Body Mass Index 27.72 11/01/2003 9:00 AM CDT documented in this encounter Progress Notes 11/01/2003 9:00 AM CDT No LMP date recorded. Reason: Injection. Last pap?/10/18/02 Normal TD: Up to date per patient Do yo u exercise? occasionally Dairy intake per day: 3-4 per day Fruits and Vegetables per day: 1-3 per day Sunscreen? Yes Seatbelts? Yes Guns in the Home? No Ivelisse Packer M.A. CC: Audra Carvajal is a 28 year old female who presents for routine health maintenance exam. HPI: Has had one week of productive c ough and chest tickle Is not shortness of breath but has increased cough with talking. Coughs wit h deep breathing or talking too much. Productive cough mostly at night. No fever, had initial sore throat and feverish feeling, now improved. Was exposed to child with similar cough. There is no prob neno list on file for this patient. Past medical history was also reviewed There is no previous surgic al history on file. Review of patient's family history indicates: Respiratory Mo ther Comment: Emphysema Mom adopted not sure of FX HX Cancer Sister Comment: Ovarian? Cardiovascular Paternal Grandfa ther Current prescriptions: DEPO-PROVERA 150 MG/ML IM SUSP 1 ml every 12 weeks MEDS UNK - RECORDS REQUESTED [facility] Allergies: No Known Drug Allergies Social History Marital Status : Spouse Name: Years of Education: Number of children: Social History Main Topics Tobacco Use: Never Alcohol Use: No Drug Use: No Sexually Active: Yes Partners with: Male Co ntrol/Protection: Injection Other Topics Concern None on file REVIEW OF [facility] EMS: Constitutional: NEGATIVE for fever, chills, or unexpected change in weight. No complains of sle ep issues. Inteumentary/Skin: NEGATIVE for worrisome rashes, moles or lesions. Dry skin on heels. S ee Patient Instructions Eyes: NEGATIVE for vision changes or irritation ENT: See History of Present Illnesss Resp: See History of Present Illnesss Breast: NEGATIVE for masses, tenderness or discharge CV: NEGATIVE for chest pain, palpitations or peripheral edema GI: NEGATIVE for nausea, abdominal arthur n, heartburn, or change in bowel habits : NEGATIVE for frequency, dysuria, hematuria, No complaints of sexual dysfunction. Musculoskelatal: NEGATIVE for significant arthralgias or myalgia Neuro: NEG ATIVE for weakness, dizziness or paresthesias Endocrine: NEGATIVE for temperature intolerance, skin/h air changes. No increased thirst or increased urination. Heme/Allergy/Immune: NEGATIVE for bleeding problems or problematic allergy symptoms Psychiatric: NEGATIVE for changes in mood or affect. EXAM: BP 118/80 Pulse 80 Resp 20 Ht 5' 3.5 (1.61m) Wt 159 lbs (72.1kg) LMP Injection GENERAL AP PEARANCE: healthy,alert,no distress EYES: Eyes grossly normal to inspection,lids and lashes within no rmal limits fundi benign-no diabetic or hypertensive changes seen, PERRL HENT: ear canals and TM's no rmal,nose and mouth without ulcers or lesions NECK: no adenopathy,no asymmetry, masses, or scars, thy roid normal to palpation and non tender. RESP: lungs clear to auscultation - no rales, rhonchi or whe ezes BREAST: normal without surface changes, masses, tenderness or nipple discharge,no palpable axill arymasses or adenopathy CV: regular rates and rhythm,normal S1 S2, no S3 or S4,no murmur, click or r ub LYMPH: normal ant/post cervical, axillary, supraclavicular nodes. ABDOMEN: soft, nontender, withou t hepatosplenomegaly or masses,bowel sounds normal : normal cervix, adnexae, and uterus without mas ses or discharge MUSCULOSKELETAL: extremities normal- no gross deformities noted SKIN: no suspicious lesions or rashes. Dry calloused feet. See Patient Instructions NEURO: Normal strength and tone, sensory exam grossly normal,mentation intact,speech normal PSYCH: mentation appears normal.,affect no rmal/bright. A/P: V70.0 ROUTINE MEDICAL EXAM (primary encounter diagnosis) Note: Plan: TD IMMUNIZ ATION,IM/JET 466.0 ACUTE BRONCHITIS Note: Plan: ALBUTEROL 90 MCG/ACT IN AERS follow up in 3-4 days if not improving, would Rx z-pack. If worsening follow up in clinic. Usual viral course reviewed. As ordered, I have discussed with the patient the risks, benefits, and treatment opt ions of prescribed medications or other treatment modalities. I have instructed the patient to sadia l or schedule a follow-up appointment for any problems or failure to improve. documented in this encounter Plan of Treatment Not on filedocumented as of this encounter Procedures Procedure Name Priority Date/Time Associated Diagnosis Comme nts HCL PAP THIN LAYER Routine 11/01/2003 12:00 AM Screening Mal R esults for this SCREEN CDT Neop-Cervix procedure are i n the results section. documented in this encounter Results A THIN LAYER PAP SCREEN (11/01/2003 12:00 AM CDT) Component Value Ref Test Analysis Performed At [facility] Range Method Time Signature Copath Report Patient Name: AUDRA CARVAJAL MR#: [id number] Specimen #: [id number] Collected: 11/01/03 Received: 11/02/03 Reported: 11/07/03 15:00 Ordering Phy(s): MIKE MCGREGOR SPECIMEN/STAIN PROCESS: Pap thin layer prep screening ? Pap-Cyto x 1, Reflex HPV x 1 SOURCE: Cervical, endocervical ---- Pap thin layer prep screening SPECIMEN ADEQUACY: Satisfactory for evaluation. -Transitional zone component present. CYTOLOGIC INTERPRETATION: Negative for Intraepithelial Lesion or Malignancy Electronically signed out by: ANTONIO Spann (ASCP) Processed and screened at [facility] CLINICAL HISTORY: LMP: not recorded injection, Previous normal pap: 10-18-02, Specimen (Source) Anatomical Collection Method Collection Time Re ceived Time Location / / Volume Laterality 11/01/2003 11/02/2003 12:0 5 PM CDT Mike Mcgregor APRN, CNP LABORATORY Performing Organization Address City/State/ZIP Code Phon e Number [place] documented in this encounter Visit Diagnoses Diagnosis Routine general medical examination at a health care facility - Primary Acute bronchitis Screening for malignant neoplasm of the cervix documented in this encounter Care Teams Refractory Products Supervisor Relationship Specialty Start Date End Date Mike Mcgregor APRN [employer]UST[employer] MILLWRIGHT PCP - General 07/21/03 [address] [place], [place] [id number] documented as of this encounter
--- OUTSIDE RECORDS SUMMARY | 2022-06-12 19:12 | XMS_ITS | Encounter Summary ---
:1975 Author Organization [place] Address [address] [place] [address] Care Team Providers Name Role Phone Vicki Mcgregor APRN FRONT COUNTER ATTENDANT Primary Care Provider [phone] Reason for Visit Reason Comments Back Pain Encounter Details Date Type Department Care Team Description 09/26/2005 Office Visit [facility] Vicki Mcgregor, ABDOMI NAL PAIN GENERALIZED; Paco TURNER CNP BACKACHE NOS; [address] [address] [place] FEMALE GENITAL SYMPTOMS NOS [place] [address] [address] [phone] [facility] [place] [address] (Wo rk) Social History Tobacco Use Types Packs/Day Years Used Date Smoking Tobacco: Never Alcohol Use Standard Drinks/Week Comments No 0 (1 standard drink = 0.6 oz pure alcoho l) Sex Assigned at Date Recorded Not on file documented as of this encounter Last Filed Vital Signs Vital Sign Reading Time Taken Comments Blood Pressure 112/72 09/26/2005 11:00 AM CARROT BUNCHER Pulse 80 09/26/2005 11:00 AM CARROT BUNCHER Temperature - - Respiratory Rate - - Oxygen Saturation 100% 09/26/2005 11:00 AM CARROT BUNCHER Inhaled Oxygen Concentration - - Weight 88.5 kg (195 lb) 09/26/2005 11:00 AM CARROT BUNCHER Height 161.3 cm (5' 3.5) 09/26/2005 11:00 AM CARROT BUNCHER Body Mass Index 34 09/26/2005 11:00 AM CARROT BUNCHER documented in this encounter Progress Notes Vicki Mcgregor - 09/26/2005 11:11 AM CST Audra Carvajal presents for back pain with she lifts her right arm and when she breathes in deeply. Sx x 3 weeks. Initial BP 112/72 Pulse 80 Ht 5' 3.5 (1.61m) Wt 195 lbs (88.5kg) SaO2 100% Body mass index is 34.00 kg/(m^2).. BP completed using cuff size: large Ivelisse Judson JOLLEY Noted as above: also reviewed with patient. Patient at times has pain in anterior chest as well--feels pain radiating through to the front. Onlyhas pain with deep breath and with coughing and with arm movement. No shortness of breath or wheezing. No significant cough. No fever. No NVD. Did have some deep pelvic pain with intercourse for two days that resolved about a week ago. She denies constitutional symptoms of fatigue, weakness, weight loss or gain, fevers, night sweats. This has never happened before. No recent or remote history of of injury to explain symptoms. ALSO: has hip pain with sitting for long periods of time. When standing is unable to bear weight--jossy If she stretches she is able to get pain to go away. Patient Active Problem List Diagnoses Code ??? HEADACHE 784.0 ??? NO ACTIVE PROBLEMS 309669 Past Medical History Diagnosis Date ??? NO ACTIVE PROBLEMS Past Surgical History Procedure Date ??? No history of surgery Allergies Allergen Reactions ??? No Known Drug Allergies History Substance Use Topics ??? Tobacco Use: Never ??? Alcohol Use: No Family History Problem Relation ??? Respiratory Mother Emphysema Mom adopted not sure of FX HX ??? Cancer Sister Ovarian? Cardiovascular Paternal Grandfather ??? Cardiovascular Mother COPD No current outpatient prescriptions on file. O: BP 112/72 Pulse 80 Ht 5' 3.5 (1.61m) Wt 195 lbs (88.5kg) SaO2 100% No Acute distress TM's elliott with normal light reflex. Throat and pharynx normal. Neck supple. Thyroid not palpable, not enlarged, no nodules detected. No adenopathy or masses in the neck or supraclavicular regions. Cardiac: Regular rate and rhythm. S1 and S2 normal, no murmurs, clicks, gallops or rubs. Chest is clear; no wheezes or rales. The abdomen is soft with mild bilateral lower quadrant tenderness, No guarding, mass or organomegaly. Bowel sounds are normal. No CVA tenderness. Skin is warm dry and pink without rash, pallor, or icterus. Neg hip films HCG negative A/P: 789.07 ABDOMINAL PAIN GENERALIZED Note: Plan: HCG, QUAL URINE, CBC WITH PLATELETS, DIFF, SED RATE, AUTO, UA MICRO IF POSITIVE, MICRO EXAM-URINE, X-RAY HIP UNI 2+ VW 724.5 BACKACHE NOS Note: Plan: HCG, QUAL URINE, CBC WITH PLATELETS, DIFF, SED RATE, AUTO, UA MICRO IF POSITIVE, CHEST X-RAY 2 VW 625.9 FEMALE GENITAL SYMPTOMS NOS Note: Plan: SONO PELVIS COMPLETE follow up as indicated. documented in this encounter Plan of Treatment Not on filedocumented as of this encounter Procedures Procedure Name Priority Date/Time Associated Diagnosis Comme nts HCL UA MICRO IF Routine 09/26/2005 11:35 AM Abdominal Pain Res ults for this POSITIVE CARROT BUNCHER Generalized procedure are in Backache Nos the results section. ZZCL AFF HCG, QUAL Routine 09/26/2005 11:35 AM Abdominal Pain Results for this URINE CARROT BUNCHER Generalized procedure are in Backache Nos the results section. CL AFF MICRO Routine 09/26/2005 11:35 AM Abdominal Pain Result s for this EXAM-URINE CARROT BUNCHER Generalized procedure are i n the results section. CL AFF CBC WITH Routine 09/26/2005 11:24 AM Abdominal Pain Res ults for this PLATELETS, DIFF CARROT BUNCHER Generalized procedure are in Backache Nos the results section. HCL SED RATE (ESR) Routine 09/26/2005 11:24 AM Abdominal Pain Results for this CARROT BUNCHER Generalized procedure are in Backache Nos the results section. HC X-RAY HIP Routine 09/26/2005 Abdominal Pain Results for t his COMPLETE >=2 VIEWS Generalized procedure are in the results section. HC CHEST TWO VIEWS, Routine 09/26/2005 Backache Nos Results for this FRONT/LAT procedure are i n the results section. documented in this encounter Results (ABNORMAL) MICRO EXAM-URINE (09/26/2005 11:35 AM CARROT BUNCHER) P athologist Signature WBC Urine O - 2 0 - 2 /HPF [facility] RBC Urine 2-5 (A) 0 - 2 /HPF [facility] Specimen Anatomical Collection Method Collection Time Receive d Time (Source) Location / / Volume Laterality 09/26/2005 11:35 09/26/2005 AM CARROT BUNCHER 11:38 AM CARROT BUNCHER Vicki Mcgregor HYDRAULIC BOOM OPERATOR FRONT COUNTER ATTENDANT LABORATORY Performing Organization Address City/[facility]/ZIP Code Phon e Number [facility] [address] [place] [address] [phone] [facility] (ABNORMAL) UA MICRO IF POSITIVE (09/26/2005 11:35 AM CARROT BUNCHER) Patholo gist Method Time Signature Color Urine Yellow [facility] Appearance Urine Clear [facility] Glucose Urine Negative NEG mg/dL [facility] Bilirubin Urine Negative NEG [facility] Ketones Urine Negative NEG mg/dL [facility] Specific [place] 1.015 1.003 - [place] Urine 1.035 [facility] Blood Urine Moderate (A) NEG [facility] pH Urine 6.0 5.0 - 7.0 [place] pH [facility] Protein Albumin Negative NEG mg/dL [place] Urine [facility] Urobilinogen 0.2 0.2 - 1.0 [place] Urine EU/dL [facility] Nitrite Urine Negative NEG [facility] Leukocyte Negative NEG [place] Esterase Urine [facility] Source Midstream [place] Urine [facility] Specimen Anatomical Collection Method Collection Time Receive d Time (Source) Location / / Volume Laterality 09/26/2005 11:35 09/26/2005 AM CARROT BUNCHER 11:38 AM CARROT BUNCHER Vicki Mcgregor HYDRAULIC BOOM OPERATOR FRONT COUNTER ATTENDANT LABORATORY Performing Organization Address City/[facility]/ZIP Code Phon e Number [facility] [address] [place] [address] [phone] [facility] HCG, QUAL URINE (09/26/2005 11:35 AM CARROT BUNCHER) P athologist Signature HCG Qual Urine Negative NEG [facility] Specimen Anatomical Collection Method Collection Time Receive d Time (Source) Location / / Volume Laterality 09/26/2005 11:35 09/26/2005 AM CARROT BUNCHER 11:38 AM CARROT BUNCHER Vicki Mcgregor HYDRAULIC BOOM OPERATOR FRONT COUNTER ATTENDANT LABORATORY Performing Organization Address City/[facility]/ZIP Code Phon e Number [facility] [address] [place] [address] [facility] SED RATE, AUTO (09/26/2005 11:24 AM CARROT BUNCHER) P athologist Signature Sed Rate 8 0 - 20 mm/h [facility] Specimen Anatomical Collection Method Collection Time Receive d Time (Source) Location / / Volume Laterality 09/26/2005 11:24 09/26/2005 AM CARROT BUNCHER 11:27 AM CARROT BUNCHER Vicki Mcgregor HYDRAULIC BOOM OPERATOR FRONT COUNTER ATTENDANT LABORATORY Performing Organization Address City/State/ZIP Code Phon e Number [facility] [address] [place] [address] [facility] CBC WITH PLATELETS, DIFF (09/26/2005 11:24 AM CARROT BUNCHER) Patholo gist Method Time Signature WBC 9.1 4.0 - [place] 11.0 [facility] 10e9/L LAB RBC Count 4.81 3.8 - 5.2 [place] 10e12/L [facility] Hemoglobin 14.3 11.7 - [place] 15.7 g/dL [facility] Hematocrit 40.7 35.0 - [place] 47.0 % [facility] MCV 85 78 - 100 [place] fl [facility] MCH 29.7 26.5 - [place] 33.0 pg [facility] MCHC 35.1 32.0 - [place] 36.0 g/dL [facility] RDW 13.2 10.0 - [place] 15.0 % [facility] Platelet Count 368 150 - 450 [place] 10e9/L [facility] Diff Method Automated [place] Method [facility] % Lymphocytes 27 20 - 48 % [facility] % Monocytes 5 0 - 12 % [facility] % Granulocytes 68 40 - 75 % [facility] Absolute 2.5 0.8 - 5.3 [place] Lymphocytes 10e9/L [facility] Absolute 0.4 0.0 - 1.3 [place] Monocytes 10e9/L [facility] Absolute 6.2 1.6 - 8.3 [place] Granulocytes 10e9/L [facility] Specimen Anatomical Collection Method Collection Time Receive d Time (Source) Location / / Volume Laterality 09/26/2005 11:24 09/26/2005 AM CARROT BUNCHER 11:27 AM CARROT BUNCHER Vicki Meche WHITEHEADN FRONT COUNTER ATTENDANT LABORATORY Performing Organization Address City/State/ZIP Code Phon e Number [address] [phone] [facility] X-RAY HIP UNI 2+ VW (09/26/2005) Anatomical Region Laterality Modality Other Impressions 09/26/2005 REPORT OF OUTSIDE FILMS FROM [facility] AUDRA CARVAJAL ?? : 77 PELVIS AND RIGHT HIP: ??09/26/05 HISTORY: ??Pain. FINDINGS: ??Two views of the pelvis and right hip. ??Negative. Nnamdi Yadav M.D./smb D/T: ??09/27/05 CHEST: ??09/26/05 HISTORY: Pain. FINDINGS: ??Two views of the chest are n egative. Nnamdi Yadav M.D./smb D/T: ??09/27/05 Ordering MD/Provider Initial Interpretat ion: Normal/Negative Electronically filed by Flakita Callejas ??09/26/2005 ??1:02 PM . Vicki Meche TURNER FRONT COUNTER ATTENDANT GENERAL IMAGING CHEST X-RAY 2 VW (09/26/2005) Anatomical Region Laterality Modality Other Impressions 09/26/2005 REPORT OF OUTSIDE FILMS FROM [facility] AUDRA CARVAJAL ?? : 77 PELVIS AND RIGHT HIP: ??09/26/05 HISTORY: ??Pain. FINDINGS: ??Two views of the pelvis and right hip. ??Negative. Nnamdi Yadav M.D./smb D/T: ??09/27/05 CHEST: ??09/26/05 HISTORY: Pain. FINDINGS: ??Two views of the chest are n egative. Nnamdi Yadav M.D./smb D/T: ??09/27/05 Ordering MD/Provider Initial Interpretat ion: Normal/Negative Electronically filed by Flakita Callejas ??09/26/2005 ??1:01 PM . Vicki Guayama HYDRAULIC BOOM OPERATOR FRONT COUNTER ATTENDANT GENERAL IMAGING documented in this encounter Visit Diagnoses Diagnosis Abdominal pain, generalized Backache, unspecified Unspecified symptom associated with fema le genital organs documented in this encounter Care Teams Permanent Mold Supervisor Relationship Specialty Start Date End Date Vicki Mcgregor APRN CNP PCP - General 07/21/03 [address] [place] [address] documented as of this encounter
--- OUTSIDE RECORDS SUMMARY | 2022-06-12 19:12 | XMS_ITS | Encounter Summary ---
:1975 Author Organization [facility] Address [address] [place] [address] Care Team Providers Name Role Phone Unavailable Primary Care Provider Unavailable Reason for Visit Reason Comments Contraception depo Encounter Details Date Type Department Care Team Description 10/28/2002 Allied Health/Nurse [facility] Eag an Contraception (depo) Visit [address] [place] [address] Social History Tobacco Use Types Packs/Day Years Used Date Smoking Tobacco: Never Alcohol Use Standard Drinks/Week Comments No 0 (1 standard drink = 0.6 oz pure alcoho l) Sex Assigned at Date Recorded Not on file documented as of this encounter Nursing Notes 10/28/2002 4:30 PM CDT >> TERESE RUEDA 10/28/2002 4:09 pm The following medication was given: MEDICATION: Depo Provera 150mg ROUTE: IM SITE: Arm - Left LOT #: [id number] Director Of Strategic Alliances: [employer] EXPIRATION DATE: 02-02 currently on her menses. Instructed to RTC 01-24 or 01-25-03 for next depo. Terese Rueda RN documented in this encounter Plan of Treatment Not on filedocumented as of this encounter Visit Diagnoses Diagnosis Other general counseling and advice for contraceptive management - Primary documented in this encounter
--- OUTSIDE RECORDS SUMMARY | 2022-06-12 19:12 | XMS_ITS | Encounter Summary ---
:1975 Author Organization [facility] Address [address] [place] [address] Care Team Providers Name Role Phone Vicki Mcgregor YUE AURICULOTHERAPIST Primary Care Provider [phone] Reason for Visit Reason Comments Contraception Encounter Details Date Type Department Care Team Description 07/13/2004 Allied Health/Nurse [facility] Eag an Contraception Visit [address] [place] [address] Social History Tobacco Use Types Packs/Day Years Used Date Smoking Tobacco: Never Alcohol Use Standard Drinks/Week Comments No 0 (1 standard drink = 0.6 oz pure alcoho l) Sex Assigned at Date Recorded Not on file documented as of this encounter Nursing Notes 07/13/2004 2:30 PM CST >> MOISES MARTINES 07/13/2004 3:14 pm The following medication was given: MEDICATION: Depo Provera 150mg ROUTE: IM SITE: Deltoid - Right DIAMOND POWDER TECHNICIAN: Sicor LOT #: [id number] EXPIRATION:01/02 URINE HCG:negative NEXT INJECTION DUE: October 08. Ivelisse Packer M.A. documented in this encounter Plan of Treatment Not on filedocumented as of this encounter Procedures Procedure Name Priority Date/Time Associated Diagnosis Comme nts ZZCL AFF HCG, QUAL Routine 07/13/2004 2:42 PM Absence Of Res ults for this URINE CALENDER INSPECTOR Menstruation procedure are i n the results section. documented in this encounter Results HCG, QUAL URINE (07/13/2004 2:42 PM CALENDER INSPECTOR) P athologist Signature HCG Qual Urine Negative NEG [facility] Specimen Anatomical Collection Method Collection Time Receive d Time (Source) Location / / Volume Laterality 07/13/2004 2:42 PM 5 2:45 CALENDER INSPECTOR PM CALENDER INSPECTOR Vicki Mcgregor APRN, CNP LABORATORY Performing Organization Address City/State/ZIP Code Phon e Number [address] [address] [facility] documented in this encounter Visit Diagnoses Diagnosis Absence of menstruation - Primary Routine general medical examination at a health care facility documented in this encounter Care Teams Medical Numerical Control Operator Relationship Specialty Start Date End Date Vicki Mcgregor APRN CNP PCP - General 07/21/03 [address] [place] [address] documented as of this encounter
--- OUTSIDE RECORDS SUMMARY | 2022-06-12 19:12 | XMS_ITS | Encounter Summary ---
:1975 Author Organization Home Address [address] [place] [address] Care Team Providers Name Role Phone Mike Mcgregor APRN, CNP Primary Care Provider [phone] Reason for Visit Reason Comments Medication Problem breakthrough bleeding on Dep o Encounter Details Date Type Department Care Team Description 12/08/2003 Telephone [facility] Eag an Mike Mcgregor, Medication Problem [address] YUE CANCINO ([place] [address] [place] on Depo) [phone] [place], [place] [address] (Wo rk) Social History Tobacco Use Types Packs/Day Years Used Date Smoking Tobacco: Never Alcohol Use Standard Drinks/Week Comments No 0 (1 standard drink = 0.6 oz pure alcoho l) Sex Assigned at Date Recorded Not on file documented as of this encounter Miscellaneous Notes Telephone Encounter - 12/08/2003 11:59 PM CDT >> MIKE MCGREGOR FriDec 08, 2003 4:46 PM Thanks >> DIANE SHIELDS FriDec 08, 2003 3:55 PM >> CALL RECEIVED. Contact: Pt had last depo on 10/18/03 and today reports some dark red bleeding and slightly crampy. This has never happened before and pt just wants VO to know. Will check again if it does not slow down. FY I to VO. Diane Shields RN documented in this encounter Plan of Treatment Not on filedocumented as of this encounter Visit Diagnoses Not on filedocumented in this encounter Care Teams Commercial Driver Relationship Specialty Start Date End Date Mike Mcgregor APRN CNP PCP - General 07/21/03 [address] [place] [address] documented as of this encounter
[2022-06-12 19:13] LABS: Slide Review Reflex Yes; White Blood Count* 26.28 K/uL (4.50-11.00)
[2022-06-12 19:16] LABS: Chloride* 102 mmol/L (96-114)
[2022-06-12 19:17] LABS: Potassium* 3.4 mmol/L (3.6-5.1); Sodium* 138 mmol/L (135-149)
[2022-06-12 19:19] LABS: Creatinine* 0.7 mg/dL (0.5-1.5); Est. Creatinine Clearance* 83.95; Estimated Glomerular Filt Rate 109 ml/min
[2022-06-12 19:20] LABS: Blood Urea Nitrogen* 12 mg/dL (5-24); Calcium* 9.1 mg/dL (8.4-10.6); Carbon Dioxide* 25 mmol/L (20-32); Glucose* 121 mg/dL (60-115)
[2022-06-12] MEDS: MORPHINE 4 MG/ML INJ IVP (19:24)
[2022-06-12 19:41] LABS: C Reactive Protein* 22.6 mg/dL (0.5-1.0)
[2022-06-12] MEDS: ONDANSETRON 2 MG/ML inj 4 MG IVP (19:42)
[2022-06-12 21:09] LABS: SARS PCR* Negative SARS-CoV-2 (Negative)
[2022-06-12] MEDS: fentaNYL 100 MCG/2 ML inj 50 MCG IVP (21:25)
[2022-06-12] MEDS: METHYLPREDNISOLONE SOD SUCC 62.5 MG/ML (125) 93.75 MG IVP (21:25)
[2022-06-12] MEDS: AMPICILLIN/SULBACTAM 3 GM in 0.9 % SODIUM CHLORIDE Mini-bag 100 ML IVPB (21:26)
--- NOTE | 2022-06-12 21:29 | ED.NURSE ---
Pt moved to larger room to ensure appropriate equipment is available in the event of airway compromise. Pt does feel it is getting more difficult to manage secretions. No increased WOB. SO is at bedside. Continues to complain of pain. Monitoring equipment applied.
--- NOTE | 2022-06-12 21:54 | ED.NURSE ---
Dr. Breen in w/ pt.
[2022-06-12] MEDS: LIDOCAINE 0.5%-EPI 1:200,000 50 ML VIAL INJECTION (22:05)
--- NOTE | 2022-06-12 22:11 | P.ENTCN_ITS ---
HPI- ENT Consult Date of Consult Time Seen by Provider: 22:00 Date Seen: 06/12/22 Consult date: 06/13/22 Primary Care Provider: Not a Local Provider Consult Narrative Reason for consult: Left neck swelling possible plunging ranula definite abscess Narrative: Audra Perez is a 46 year old female history of poor dentition who has a history since Friday of left submandibular pain extending into the throat. She has odynophagia and dysphagia. The pain is worsening. CT in the ER demonstrated what appeared to be a plunging ranula. They specifically noted that was not likely rate related to bad teeth although that is not clear to me. PFSH PFSH Social History Smoking Status: Never smoker Second hand tobacco smoke exposure: Yes How often do you have a drink containing alcohol: monthly or less How many standard drinks containing alcohol do you have on a typical day: 1 or 2 How often do you have six or more drinks on one occasion: Never AUDIT-C Alcohol total score: 1 Non-prescribed substance use: denies use Meds Home Medications and Allergies Home Medications Medication Instructions Recorded Confirmed Type acetaminophen 300 mg-codeine 30 mg 1 tab PO Q8H 06/12/22 06/12/22 History tablet amoxicillin 500 mg capsule 500 mg PO TID 06/12/22 06/12/22 History Allergies Allergy/AdvReac Type Severity Reaction Status Date / Time No Known Drug Allergies Allergy Verified 06/12/22 16:17 Exam Narrative: Exam Narrative: General skin neuro respiratory gait peripheral vascular vocal quality skin of h ead neck negative she has positive trismus. The hypopharynx larynx is currently patent but there is edema on the left side down to the level of the larynx. Neck shows significant submental and submandibular swelling with some erythema. She is tender on the neck. Const: Vital Signs, click to edit/add: Vital Signs - 24 hr 06/12/22 16:17 06/12/22 19:03 06/12/22 20:24 Temperature 98.9 F Pulse Rate Pulse Rate [Pulse Oximeter] 140 H 121 H Respiratory Rate 20 Blood Pressure Blood Pressure [Ri ght Upper Arm] 137/83 97/69 Pulse Oximetry 99 99 99 Oxygen Delivery Me thod Room Air Room Air 06/12/22 21:16 06/12/22 21:17 06/12/22 21:18 Temperature Pulse Rate 123 H 126 H Pulse Rate [Pulse Oximeter] Respiratory Rate Blood Pressure 125/75 126/76 Blood Pressure [Ri ght Upper Arm] Pulse Oximetry 99 100 Oxygen Delivery Me thod 06/12/22 21:30 06/12/22 21:31 Temperature Pulse Rate 144 H 124 H Pulse Rate [Pulse Oximeter] Respiratory Rate Blood Pressure 122/75 Blood Pressure [Ri ght Upper Arm] Pulse Oximetry 95 97 Oxygen Delivery Me thod ENT-CN: Result Labs Labs: Short CBC 06/12/22 Range/Units 18:51 WBC 26.28 H* (4.50-11.00) K/uL Hgb 13.1 (12.0-16.0) gm/dL Hct 39.2 (33.0-51.0) % Plt Count 387 (140-440) K/uL BMP 06/12/22 18:51 Sodium 138 Potassium 3.4 L Chloride 102 Carbon Dioxide 25 BUN 12 Creatinine 0.7 Glucose 121 H Calcium 9.1 Assessment and Plan Assessment and plan (1) Abscess, neck: Status: Acute Plan Sublingual/submandibular abscess possibly related to plunging ranula versus to poor dentition. Recommend IV antibiotics Unasyn and Flagyl. Because of the narrowing of the airway would recommend going the operating room for establishing an airway. This was all reviewed with her at length. Would attempt to drain the abscess at that time transcervically. Risks include injury to nerves difficulty intubating possible tracheotomy injury to adjacent structures failure to drain abscess etc.. She understands and wishes to proceed we will schedule
--- NOTE | 2022-06-12 23:09 | W.PM.ENTPROC ---
Procedure Note Date of procedure: 06/12/22 Procedure: Preoperative diagnosis submental/submandibular/sublingual abscess possibly plunging ranula with airway compromise postoperative diagnosis same procedure is intubation, incision and drainage left submandibular sublingual abscess The patient was intubated the operating room with moderate difficulty. Tube position was verified by auscultation and CO2 return. The table was then turned the patient prepped and draped in the usual fashion. An incision was marked approximately 2 and half fingerbreadths below the angle of the mandible left neck. This area was injected with 0.5% lidocaine [id number] adrenaline. The skin and subcutaneous tissues were divided with a 15 blade. Bleeding was controlled with pinpoint needlepoint cautery. The platysma was then divided. Blunt dissection was then used to dissect into the sublingual space. This was verified by transoral palpation. A moderate amount of serosanguineous fluid was removed. The cavity was irrigated and then a quarter-inch Rutherford drain was placed into the cavity. This was secured to the skin with a 3-0 silk suture. The neck was then wrapped with fluffs and a Kerlix. The patient tolerated procedure well and was awaiting transfer. I did not feel it was safe to extubate her in the operating room given that there was some difficulty with intubation. Blood loss during procedure less than 10 mL. Complications none. Surgeon: Victorino Breen MD
--- NOTE | 2022-06-12 23:18 | SUR.OPER ---
Surgeon started Surgery without a time out due to this being an emergency case.
--- NOTE | 2022-06-12 23:30 | SUR.OPER ---
No consent was signed due to emergent nature of case.
[2022-06-12 23:35] LABS: Slide Review Acceptable Review (Acceptable)
--- NOTE | 2022-06-13 00:42 | W.ANESCHARGE ---
Anesthesia Charges Start Date/Time Anesthesia Start Date: 06/12/22 Anesthesia Start Time: 22:53 Stop Date/Time Anesthesia Stop Date: 06/13/22 Anesthesia Stop Time: 00:20 Summary Emergency: Yes
== END 2022-06-12 23:00 | disposition short-term general hospital (02) ==
LOC: ED 21:17 → SS 22:37
PROVIDERS: Emergency Provider Family Medicine; Visit Provider Otolaryngology
PROC: 0C9PXZZ Drainage of Tonsils, External Approach (ICD-10-PCS; CPT 42700; principal; 2022-06-12 22:45)
DX: K12.2 Cellulitis and abscess of mouth (principal); K11.6 Mucocele of salivary gland; K03.2 Erosion of teeth; J02.9 Acute pharyngitis, unspecified; R13.10 Dysphagia, unspecified
CPT/HCPCS: 41017; 31500; 00170; 36415; 70491; 80048; 85025; 86140; 87205; 87635; 94761; 99140; 99284; 99291; A4344; J0295; J0330; J2270; J2370; J2405; J2704; J2930; J3010; J7030; Q9967

== ENCOUNTER 2022-06-13 23:50 | Outpatient (CLI) | payer OTHER, SELFPAY | END 2022-06-13 23:51 | disposition home or self-care (01) | LOC: AMB 06-20 09:28 | PROVIDERS: Visit Provider Emergency Medicine | DX: R06.03 Acute respiratory distress (principal) | CPT/HCPCS: A0425; A0426 ==